=== PATIENT | male | born 1940 | race Caucasian/White ===

== ENCOUNTER 2016-09-24 16:13 | Inpatient (IN) | payer MEDICARE, MEDICAID ==
[2016-09-24] VITALS (9 sets, daily range): BP systolic 85–115; BP diastolic 44–59; PULSE 60–79; RESP 16–18; TEMP 97.8–98.5; O2SAT 96–98
[~2016-09-24] VITALS: Ht 180.3 cm; Wt 90.5 kg
[~2016-09-24 16:13] MED LIST: COUM4TAB PO; DIGO0.25 PO; FURO40TA PO; LIPI10TA PO; OMEP20TA PO; TAMS0.4C4 PO; VANC500I3 PO
--- NOTE | 2016-09-24 16:37 | PD ---
HPI Chief Complaint: GI Complaint Time Seen by Provider: 16:25 Travel History International Travel<30 days: No Contact w/Intl Traveler<30days: No Traveled to known affect area: No History of Present Illness HPI This is a 76-year-old male who has a history of C. difficile colitis who presents to the emergency department having had persistent diarrhea for months. He is brought in by family member who says he is not getting well taking care of at home. The patient is a poor historian and is somewhat tangential and inconsistently answers questions appropriately. He reportedly was started on Flagyl by his primary care physician earlier this week. He's been off of antibiotics for 2-3 weeks. He was hospitalized for C. difficile in July and discharged on oral vancomycin. His brother came down from [place] to help take care of him and evidently they were up all night because he's been having such frequent bowel movements. His family member reports that he's lost 70 pounds in 3 months. PFSH Past Medical History Hx Anticoagulant Therapy: Yes (POSSIBLY) Arthritis: No Asthma: Yes Atrial Fibrillation: Yes Autoimmune Disease: No Blood Disorders: No Anxiety: No Depression: No Heart Rhythm Problems: Yes Cancer: No Cardiac Catheterization: Yes Cardiovascular Problems: Yes (HTN) High Cholesterol: No Chemotherapy: No Chest Pain: Yes Congestive Heart Failure: Yes COPD: No Cerebrovascular Accident: No Coronary Artery Disease: Yes Diabetes: No Diminished Hearing: Yes Endocrine: No GERD: No Glaucoma: No Genitourinary: No Headaches: Yes Hepatitis: No Hiatal Hernia: No Hypertension: Yes Immune Disorder: Yes Kidney Stones: No Musculoskeletal: Yes (steroid injections with tens years ago) Neurologic: No Psychiatric: No Respiratory: No Immunizations Current: Yes Myocardial Infarction: No Radiation Therapy: No Renal Failure: No Sickle Cell Disease: No Sleep Apnea: No Thyroid Disease: No Ulcer: No Past Surgical History Abdominal Surgery: No AICD: No Cardiac Surgery: No Coronary Stent: Yes (x2) Ear Surgery: No Endocrine Surgery: No Eye Surgery: No Genitourinary Surgery: No Gynecologic Surgery: No Oral Surgery: No Pacemaker: No Thoracic Surgery: No Social History Alcohol Use: No Tobacco Use: No Substance Use: No Allergies-Medications (Allergen,Severity, Reaction): Coded Allergies: No Known Allergies (Verified , 09/24/16) Reported Meds & Prescriptions Reported Meds & Active Scripts Active Reported Digoxin 0.25 Mg Tab 0.25 Mg PO DAILY Atorvastatin (Atorvastatin Calcium) 10 Mg Tab 10 Mg PO HS Omeprazole 20 Mg Tab 20 Mg PO DAILY Warfarin 4 Mg Tab 4 Mg PO DAILY Probiotic (Lactobacillus Acidophilus) 1 Cap Cap 1 Cap PO TIDAC Tamsulosin (Tamsulosin HCl) 0.4 Mg Cap 0.4 Mg PO HS Pepto-Bismol Liq (Bismuth Subsalicylate) 262 Mg/15 Ml Susp 30 Ml PO PRN Do not exceed 8 doses (240 mL or 16 tbsp) in 24 hours. Flagyl (Metronidazole) 500 Mg Tab 500 Mg PO TID Multivitamin Men (Multiple Vitamins W/ Minerals) 1 Tab Tab 1 Tab PO DAILY Review of Systems ROS Limitations: Poor Historian Physical Exam Narrative GENERAL:Well appearing, no acute distress SKIN: Dry with skin tenting. HEAD: Atraumatic. Normocephalic. EYES: Pupils equal and round. No injection or drainage. ENT: Dry mucous membranes. NECK: Trachea midline. CARDIOVASCULAR: Regular rate and rhythm. No murmur appreciated. RESPIRATORY: Clear to auscultation. Breath sounds equal bilaterally. GASTROINTESTINAL: Abdomen soft, non-tender, nondistended. MUSCULOSKELETAL: No obvious deformities. NEUROLOGICAL: Somewhat confused, hard of hearing. Moving all extremities. Data Data Last Documented VS Vital Signs Date Time Temp Pulse Resp B/P Pulse Ox O2 Delivery O2 Flow Rate FiO2 09/24/16 17:45 76 18 100/54 96 Room Air 09/24/16 16:16 98.5 Orders Complete Blood Count With Diff (09/24/16 16:35) Comprehensive Metabolic Panel (09/24/16 16:35) ^ Insert Iv (09/24/16 16:35) Sodium Chlor 0.9% 1000 Ml Inj (Ns 1000 M (09/24/16 16:45) Prothrombin Time / Inr (Pt) (09/24/16 16:35) Digoxin (09/24/16 16:35) Admit Order (Ed Use Only) (09/24/16 18:28) Labs Laboratory Tests Test 09/24/16 17:30 White Blood Count 5.9 TH/MM3 Red Blood Count 4.06 MIL/MM3 Hemoglobin 11.8 GM/DL Hematocrit 34.9 % Mean Corpuscular Volume 85.9 FL Mean Corpuscular Hemoglobin 28.9 PG Mean Corpuscular Hemoglobin 33.7 % Concent Red Cell Distribution Width 15.9 % Platelet Count 277 TH/MM3 Mean Platelet Volume 8.2 FL Neutrophils (%) (Auto) 65.0 % Lymphocytes (%) (Auto) 17.4 % Monocytes (%) (Auto) 15.8 % Eosinophils (%) (Auto) 0.6 % Basophils (%) (Auto) 1.2 % Neutrophils # (Auto) 3.9 TH/MM3 Lymphocytes # (Auto) 1.0 TH/MM3 Monocytes # (Auto) 0.9 TH/MM3 Eosinophils # (Auto) 0.0 TH/MM3 Basophils # (Auto) 0.1 TH/MM3 CBC Comment DIFF FINAL Differential Comment Prothrombin Time 25.0 SEC Prothromb Time International 2.2 RATIO Ratio Sodium Level 133 MEQ/L Potassium Level 3.8 MEQ/L Chloride Level 96 MEQ/L Carbon Dioxide Level 22.7 MEQ/L Anion Gap 14 MEQ/L Blood Urea Nitrogen 76 MG/DL Creatinine 4.70 MG/DL Estimat Glomerular Filtration 12 ML/MIN Rate Random Glucose 94 MG/DL Calcium Level 8.1 MG/DL Total Bilirubin 0.6 MG/DL Aspartate Amino Transf 18 U/L (AST/SGOT) Alanine Aminotransferase 17 U/L (ALT/SGPT) Alkaline Phosphatase 71 U/L Total Protein 6.1 GM/DL Albumin 2.0 GM/DL Digoxin Level 3.3 NG/ML MDM Medical Decision Making Medical Screen Exam Complete: Yes Emergency Medical Condition: Yes Medical Record Reviewed: Yes (patient was hospitalized in July for C. difficile colitis and renal failure. On discharge his creatinine is 1.2.) Interpretation(s) EKG: Right bundle branch block, atrial fibrillation similar to prior EKG Anemia Monocytic shift Mild hyponatremia Creatinine is 4.7 BUN is 76 Digoxin is 3.3 Differential Diagnosis Electrolyte abnormality, dehydration, renal failure, sepsis, digoxin toxicity Narrative Course This is a 76-year-old male who presents the emergency department with failure to thrive in the setting of C. difficile colitis. He is nontoxic appearing on exam but does appear quite dry. He was placed on a monitor and an IV was established. Labs demonstrate renal failure with a normal potassium. His digoxin level is also toxic. Given this is not an acute ingestion and likely reflects toxicity in the setting of renal failure. I don't think digiFab or dialysis are warranted at this time, the patient's level likely improve with hydration. He has no evidence of arrhythmia on monitor currently. I spoke to Dr. Vasquez who requested I speak to the commercial designer regarding this patient. I spoke to Dr. Phelan who will admit the patient to the intensive care unit. Diagnosis Primary Impression: Renal insufficiency Additional Impression: Digoxin toxicity Qualified Code: T46.0X1A - Digoxin toxicity, accidental or unintentional, initial encounter Admitting Information Admitting Physician Requests: Admit Brianna Kimble MD Sep 24, 2016 16:37
[2016-09-24] MEDS ORDERED: SODIUM CHLOR 0.9% 1000 ML INJ 1,000 ML IV ONE ×2 (16:45→19:30)
[2016-09-24] MEDS ORDERED: WARF-20 PO (16:48)
[2016-09-24] MEDS ORDERED: MULT1TAB85 PO (16:48)
[2016-09-24] MEDS ORDERED: LACTCAP8 PO (16:48)
[2016-09-24] MEDS ORDERED: ATOR10TA15 PO (16:48)
[2016-09-24] MEDS ORDERED: TAMS0.4C4 PO (16:48)
[2016-09-24] MEDS ORDERED: OMEP20TA PO (16:48)
[2016-09-24] MEDS ORDERED: PEPT262S PO (16:48)
[2016-09-24] MEDS ORDERED: DIGO0.25 PO (16:48)
[2016-09-24] MEDS ORDERED: METR-1 PO (16:48)
[2016-09-24 17:44] LABS: AUTOMATED NEUTROPHIL # 3.9 TH/MM3 (1.8-7.7); BASOPHIL # 0.1 TH/MM3 (0-0.2); BASOPHIL % 1.2 % (0.0-2.0); EOSINOPHIL % 0.6 % (0.0-4.0); HEMATOCRIT 34.9 % (39.0-51.0); HEMO FLAGS DIFF FINAL; LYMPH % 17.4 % (9.0-44.0); MEAN CELL VOLUME 85.9 FL (80.0-100.0); MEAN CORPUSCULAR HEMOGLOBIN 28.9 PG (27.0-34.0); MEAN CORPUSCULAR HGB CONC 33.7 % (32.0-36.0); MONO % 15.8 % (0.0-8.0); PLATELET COUNT 277 TH/MM3 (150-450); RED BLOOD COUNT 4.06 MIL/MM3 (4.50-5.90); RED CELL DISTRIBUTION WIDTH 15.9 % (11.6-17.2); WHITE BLOOD COUNT 5.9 TH/MM3 (4.0-11.0)
[2016-09-24 17:52] LABS: CHLORIDE 96 MEQ/L (98-107); POTASSIUM 3.8 MEQ/L (3.5-5.1); SODIUM (NA) 133 MEQ/L (136-145)
[2016-09-24 17:55] LABS: ANION GAP 14 MEQ/L (5-15); BICARBONATE 22.7 MEQ/L (21.0-32.0)
[2016-09-24 17:56] LABS: BLOOD UREA NITROGEN 76 MG/DL (7-18)
[2016-09-24 17:57] LABS: INTERNATIONAL NORMALIZED RATIO 2.2 RATIO
[2016-09-24 17:59] LABS: ALT (GPT) 17 U/L (12-78); AST (GOT) 18 U/L (15-37); GLOMERULAR FILTRATION RATE 12 ML/MIN (>89)
[2016-09-24 18:00] LABS: TOTAL BILIRUBIN ADULT 0.6 MG/DL (0.2-1.0)
[2016-09-24 18:02] LABS: ALKALINE PHOSPHATASE 71 U/L (45-117)
[2016-09-24] MEDS ORDERED: VANCOMYCIN 500 MG VIAL (FOR ORAL USE ONLY) PO SCH (18:45)
[2016-09-24 18:50] LABS: DIGOXIN 3.3 NG/ML (0.8-2.0)
[2016-09-24] MEDS ORDERED: ONDANSETRON HCL 4 MG/2 ML VIAL IVP PRN (19:00)
[2016-09-24] MEDS ORDERED: ACETAMINOPHEN 325 MG TAB PO PRN ×2 (19:00→19:30)
[2016-09-24] MEDS ORDERED: NALOXONE HCL 0.4 MG/ML AMP IV PRN (19:00)
[2016-09-24] MEDS ORDERED: SODIUM CHLORIDE 0.9% FLUSH 5 ML FLUSH FLUSH PRN (19:00)
[2016-09-24] MEDS ORDERED: RESP: ALBUTEROL 2.5 MG/IPRATROPIUM 0.5 MG NEB (PRN) INH (19:30)
[2016-09-24] MEDS ORDERED: CHLORHEXIDINE GLUCONATE 2 % 1 PACK (2 CLOTHS) TOP PRN (19:30)
[2016-09-24] MEDS ORDERED: MISCELLANEOUS NURSING INFORMATION XX SCH (19:30)
[2016-09-24] MEDS ORDERED: ONDANSETRON HCL 4 MG/2 ML VIAL IV PRN (19:30)
[2016-09-24] MEDS ORDERED: SODIUM CHLORIDE 0.9% FLUSH 5 ML FLUSH IV FLUSH PRN (19:30)
[2016-09-24] MEDS: TAMSULOSIN HCL 0.4 MG CAP PO SCH (19:45)
[2016-09-24] MEDS ORDERED: SODIUM CHLOR 0.9% 1000 ML INJ 1,000 ML IV SCH (20:00)
[2016-09-24] MEDS ORDERED: HEPARIN SODIUM - SQ 10,000 UNITS/ML VIAL SQ SCH (20:00)
[2016-09-24] MEDS: SODIUM CHLORIDE 0.9% FLUSH 5 ML FLUSH IV FLUSH SCH (20:56)
[2016-09-24] MEDS: SODIUM CHLOR 0.9% 1000 ML INJ 1,000 ML IV SCH (20:56)
[2016-09-24] MEDS: ATORVASTATIN 10 MG TAB PO SCH (20:56)
[2016-09-24] MEDS ORDERED: SODIUM CHLORIDE 0.9% FLUSH 5 ML FLUSH FLUSH SCH (21:00)
[2016-09-25] VITALS (14 sets, daily range): BP systolic 91–104; BP diastolic 51–55; PULSE 45–80; RESP 15–19; TEMP 97.3–97.8; O2SAT 95–98
--- NOTE | 2016-09-25 00:23 | HHI.HP ---
HPI Service Critical Care Medicine Primary Care Physician Pelon Jiang M.D. Admission Diagnosis renal failure, c diff colitis Diagnosis: Chief Complaint: Diarrhea, weakness. Travel History International Travel<30 Days: No Contact w/Intl Traveler <30 Da: No Traveled to Known Affected Are: No History of Present Illness 76 y/o man developed C. diff colitis after an antibiotic course for a minor elbow infection. Now after Rx he appears to have recurrence. He presents with RAVEN, Creat 4.0, and severe dehydration. Complains that his tongue is stuck to the top of his mouth. Hypotensive on arrival. See initially at [place] ED and transferred when bed not available there. No chest pain or SOB. Review of Systems ROS Skin breakdown left buttocks is sore. Continued diarrhea. Past Family Social History Allergies: Coded Allergies: No Known Allergies (Verified , 09/24/16) Past Medical History Past Medical History Hx Anticoagulant Therapy: Yes (POSSIBLY) Arthritis: No Asthma: Yes Atrial Fibrillation: Yes Autoimmune Disease: No Blood Disorders: No Anxiety: No Depression: No Heart Rhythm Problems: Yes Cancer: No Cardiac Catheterization: Yes Cardiovascular Problems: Yes (HTN) High Cholesterol: No Chemotherapy: No Chest Pain: Yes Congestive Heart Failure: Yes COPD: No Cerebrovascular Accident: No Coronary Artery Disease: Yes Diabetes: No Diminished Hearing: Yes Endocrine: No GERD: No Glaucoma: No Genitourinary: No Headaches: Yes Hepatitis: No Hiatal Hernia: No Hypertension: Yes Immune Disorder: Yes Kidney Stones: No Musculoskeletal: Yes (steroid injections with tens years ago) Neurologic: No Psychiatric: No Respiratory: No Immunizations Current: Yes Myocardial Infarction: No Radiation Therapy: No Renal Failure: No Sickle Cell Disease: No Sleep Apnea: No Thyroid Disease: No Ulcer: No Past Surgical History Abdominal Surgery: No AICD: No Cardiac Surgery: No Coronary Stent: Yes (x2) Ear Surgery: No Endocrine Surgery: No Eye Surgery: No Genitourinary Surgery: No Gynecologic Surgery: No Oral Surgery: No Pacemaker: No Thoracic Surgery: No Social History Alcohol Use: No Tobacco Use: No Substance Use: No Allergies-Medications Allergies-Medications (Allergen,Severity, Reaction): Coded Allergies: No Known Allergies (Verified , 09/24/16) Reported Meds & Prescriptions Reported Meds & Active Scripts Active Reported Digoxin 0.25 Mg Tab 0.25 Mg PO DAILY Atorvastatin (Atorvastatin Calcium) 10 Mg Tab 10 Mg PO HS Omeprazole 20 Mg Tab 20 Mg PO DAILY Warfarin 4 Mg Tab 4 Mg PO DAILY Probiotic (Lactobacillus Acidophilus) 1 Cap Cap 1 Cap PO TIDAC Tamsulosin (Tamsulosin HCl) 0.4 Mg Cap 0.4 Mg PO HS Pepto-Bismol Liq (Bismuth Subsalicylate) 262 Mg/15 Ml Susp 30 Ml PO PRN Do not exceed 8 doses (240 mL or 16 tbsp) in 24 hours. Flagyl (Metronidazole) 500 Mg Tab 500 Mg PO TID Multivitamin Men (Multiple Vitamins W/ Minerals) 1 Tab Tab 1 Tab PO DAILY Physical Exam Vital Signs Vital Signs Date Time Temp Pulse Resp B/P Pulse Ox O2 Delivery O2 Flow Rate FiO2 09/24/16 23:26 97.8 72 16 104/53 09/24/16 22:50 59 18 85/48 98 09/24/16 21:55 63 18 98/46 97 Room Air 09/24/16 21:55 18 09/24/16 20:26 60 18 102/44 98 Room Air 09/24/16 20:16 98 09/24/16 19:09 69 18 115/51 98 Room Air 09/24/16 19:09 18 09/24/16 18:41 73 18 101/53 96 Room Air 09/24/16 17:45 76 18 100/54 96 Room Air 09/24/16 16:16 98.5 79 16 97/59 Physical Exam Gen: Ill-appearing, dehydrated man Head: Eyes sunken. Neck: Supple, no obstruction. Lungs: Clear, no wheezes or crackles. Comfortable pattern. Heart: Irreg Irreg, rate 75-88. No JVD. Abdomen: Soft, nontender. No guarding. BS active. Extremities: Tepid, well perfused. 2 + chronic edema both lower legs and feet. Neuro: O X 3, speech clear. Moves 4 limbs to command. Laboratory Laboratory Tests Test 09/24/16 17:30 White Blood Count 5.9 Red Blood Count 4.06 Hemoglobin 11.8 Hematocrit 34.9 Mean Corpuscular Volume 85.9 Mean Corpuscular Hemoglobin 28.9 Mean Corpuscular Hemoglobin 33.7 Concent Red Cell Distribution Width 15.9 Platelet Count 277 Mean Platelet Volume 8.2 Neutrophils (%) (Auto) 65.0 Lymphocytes (%) (Auto) 17.4 Monocytes (%) (Auto) 15.8 Eosinophils (%) (Auto) 0.6 Basophils (%) (Auto) 1.2 Neutrophils # (Auto) 3.9 Lymphocytes # (Auto) 1.0 Monocytes # (Auto) 0.9 Eosinophils # (Auto) 0.0 Basophils # (Auto) 0.1 CBC Comment DIFF FINAL Differential Comment Prothrombin Time 25.0 Prothromb Time International 2.2 Ratio Sodium Level 133 Potassium Level 3.8 Chloride Level 96 Carbon Dioxide Level 22.7 Anion Gap 14 Blood Urea Nitrogen 76 Creatinine 4.70 Estimat Glomerular Filtration 12 Rate Random Glucose 94 Calcium Level 8.1 Total Bilirubin 0.6 Aspartate Amino Transf 18 (AST/SGOT) Alanine Aminotransferase 17 (ALT/SGPT) Alkaline Phosphatase 71 Total Protein 6.1 Albumin 2.0 Digoxin Level 3.3 Result Diagram: 09/24/16172909/24/161729 Assessment and Plan Problem List: (1) Dehydration, severe ICD Code: E86.0 Status: Acute (2) RAVEN (acute kidney injury) ICD Code: N17.9 Status: Acute (3) Digoxin toxicity ICD Code: T46.0X1A Status: Acute (4) Pressure sore on buttocks ICD Code: L89.309 Status: Acute Assessment and Plan Plan: CV: Hold digoxin. Rate acceptable. NS one additional liter. RESP: Suppl O2 prn to keep Sats > 90% NEURO: Avoid sedation. RENAL: Hydrate aggressively. Follow Creatinine. : Hold burgos for now. GI: Sips only tonight. ID: Oral vancomycin. IV flagyl. Blood cultures. C. diff pcr now. Wound consult for buttock breakdown present on admission. HEME: Serial wbc. Continue coumadin for a-fib. ENDO NA Nutrition: Consult, appears to have protein calorie malnutrition. Prealbumin. Overall impression: Critically ill with recurrent C. diff colitis and severe dehydration associated with acute kidney in jury. He will require aggressive resuscitation tonight. Critical care 38 mins Problem Qualifiers (1) Digoxin toxicity: Qualified Code: T46.0X1A - Digoxin toxicity, accidental or unintentional, initial encounter Contreras Phelan MD Sep 25, 2016 00:22
[2016-09-25] MEDS ORDERED: SODIUM CHLOR 0.9% 1000 ML INJ 1,000 ML IV ONE (00:30)
[2016-09-25] MEDS: metroNIDAZOLE 500 MG INJ 100 ML IV SCH ×2 (01:41→16:28)
[2016-09-25] MEDS: CHLORHEXIDINE GLUCONATE 2 % 1 PACK (2 CLOTHS) TOP SCH (01:42)
[2016-09-25] MEDS: SODIUM CHLOR 0.9% 1000 ML INJ 1,000 ML IV SCH ×3 (01:43→16:29)
[2016-09-25 04:51] LABS: AUTOMATED NEUTROPHIL # 3.2 TH/MM3 (1.8-7.7); BASOPHIL % 0.3 % (0.0-2.0); EOSINOPHIL % 0.7 % (0.0-4.0); HEMATOCRIT 31.6 % (39.0-51.0); HEMO FLAGS DIFF FINAL; MEAN CORPUSCULAR HGB CONC 33.3 % (32.0-36.0); PLATELET COUNT 234 TH/MM3 (150-450); RED BLOOD COUNT 3.64 MIL/MM3 (4.50-5.90); RED CELL DISTRIBUTION WIDTH 16.8 % (11.6-17.2); WHITE BLOOD COUNT 4.8 TH/MM3 (4.0-11.0)
[2016-09-25 04:53] LABS: INTERNATIONAL NORMALIZED RATIO 2.2 RATIO; PROTHROMBIN TIME - PATIENT 24.9 SEC (9.8-11.6)
[2016-09-25 05:09] LABS: ANION GAP 12 MEQ/L (5-15); AST (GOT) 16 U/L (15-37); BICARBONATE 22.5 MEQ/L (21.0-32.0); BLOOD UREA NITROGEN 70 MG/DL (7-18); CHLORIDE 102 MEQ/L (98-107); GLOMERULAR FILTRATION RATE 15 ML/MIN (>89); MAGNESIUM 2.1 MG/DL (1.5-2.5); POTASSIUM 3.6 MEQ/L (3.5-5.1); SODIUM (NA) 136 MEQ/L (136-145)
[2016-09-25 05:14] LABS: ALKALINE PHOSPHATASE 64 U/L (45-117); ALT (GPT) 18 U/L (12-78); TOTAL BILIRUBIN ADULT 0.4 MG/DL (0.2-1.0)
[2016-09-25 06:03] LABS: C. DIFF EPI 027 PRESUMPTIVE NEGATIVE (NEGATIVE); C. DIFF TOXIN PCR NEGATIVE (NEGATIVE)
[2016-09-25] MEDS ORDERED: metroNIDAZOLE 500 MG TAB PO SCH (09:00)
[2016-09-25] MEDS: SODIUM CHLORIDE 0.9% FLUSH 5 ML FLUSH IV FLUSH SCH ×2 (09:00→20:22)
--- NOTE | 2016-09-25 09:39 | RADRPT ---
EXAM DATE/TIME: 09/25/2016 08:48 [facility] COMPARISON: ULTRASOUND SOFT TISSUE, June 29, 2016, 17:20. INDICATIONS : Shortness of breath. MEDICAL HISTORY : Hypertension. Congestive heart failure. Gastroesophageal reflux disease. Asthma. SURGICAL HISTORY : Stent placement. ENCOUNTER: Initial ACUITY: 1 day PAIN SCORE: 0/10 LOCATION: Bilateral chest FINDINGS: The left hemithorax is decreased in volume as compared to the right there is blunting of the left cos tophrenic angle overlying hazy increased density. These findings are suggestive of consolidation, ate lectasis and/or fluid. The remainder of the lungs are clear. Heart size is normal. Pulmonary vasculature is normal. Osseous structures are unremarkable. CONCLUSION: Left basilar density and blunting of the left costophrenic angle concerning for pleural effusion, con solidation and/or atelectasis. Madelin Echeverria MD on September 25, 2016 at 9:36 Board Certified Radiologist. This report was verified electronically.
[2016-09-25] MEDS: PANTOPRAZOLE SOD 20 MG DELAYED RELEASE TAB PO SCH (10:44)
--- NOTE | 2016-09-25 11:39 | PD.CONS ---
HPI Service Nephrology Consult Requested By Reason for Consult Acute Renal Failure Primary Care Physician Pelon Jiang M.D. History of Present Illness This is a 76 y/o male patient who was sent from [facility]. He was previously on antibiotic for left arm wound, developed diarrhea, was treated for C diff. His family brought him in for weakness. The diarrhea has improved. C diff testing here is negative Creatinine was normal in July at 1.2, on admission is was 4.7, which improved to 4.0 with IVF. He has been complaining of very dry mouth. PMH as listed below including A fib, he is on Digoxin and Coumadin. We were consulted for renal management. His lower legs are edematous. (Monika Martinez) Review of Systems Constitutional: COMPLAINS OF: Weight gain, DENIES: Fatigue Respiratory: DENIES: Shortness of breath Cardiovascular: COMPLAINS OF: Lower Extremity Edema Gastrointestinal: COMPLAINS OF: Diarrhea, Vomiting, DENIES: Abdominal pain, Constipation, Nausea (Monika Martinez) Past Family Social History Allergies: Coded Allergies: No Known Allergies (Verified , 09/24/16) Past Medical History A fib on Coumadin CHF HTN CAD Asthma Past Surgical History PCI with stent placement Reported Medications Digoxin 0.25 Mg Tab 0.25 Mg PO DAILY Atorvastatin (Atorvastatin Calcium) 10 Mg Tab 10 Mg PO HS Omeprazole 20 Mg Tab 20 Mg PO DAILY Warfarin 4 Mg Tab 4 Mg PO DAILY Probiotic (Lactobacillus Acidophilus) 1 Cap Cap 1 Cap PO TIDAC Tamsulosin (Tamsulosin HCl) 0.4 Mg Cap 0.4 Mg PO HS Pepto-Bismol Liq (Bismuth Subsalicylate) 262 Mg/15 Ml Susp 30 Ml PO PRN Do not exceed 8 doses (240 mL or 16 tbsp) in 24 hours. Flagyl (Metronidazole) 500 Mg Tab 500 Mg PO TID Multivitamin Men (Multiple Vitamins W/ Minerals) 1 Tab Tab 1 Tab PO DAILY Active Ordered Medications Last 72 hours Impressions Chest X-Ray 09/25/16 0000 Signed Impressions: Service Date/Time: September 08:48 - CONCLUSION: Left basilar density and blunting of the left costophrenic angle concerning for pleural effusion, consolidation and/or atelectasis. 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 (Monika Martinez) Physical Exam Vital Signs Vital Signs Date Time Temp Pulse Resp B/P Pulse Ox O2 Delivery O2 Flow Rate FiO2 09/25/16 10:00 63 09/25/16 08:50 95 Nasal Cannula 1.50 09/25/16 08:00 97.5 52 16 93/51 97 09/25/16 08:00 52 09/25/16 06:00 59 09/25/16 04:00 64 09/25/16 04:00 97.3 64 19 104/55 96 09/25/16 02:00 61 09/25/16 00:00 97.8 69 18 92/55 96 09/25/16 00:00 69 09/24/16 23:26 97.8 72 16 104/53 09/24/16 22:50 59 18 85/48 98 09/24/16 21:55 63 18 98/46 97 Room Air 09/24/16 21:55 18 09/24/16 20:26 60 18 102/44 98 Room Air 09/24/16 20:16 98 09/24/16 19:09 69 18 115/51 98 Room Air 09/24/16 19:09 18 09/24/16 18:41 73 18 101/53 96 Room Air 09/24/16 17:45 76 18 100/54 96 Room Air 09/24/16 16:16 98.5 79 16 97/59 Physical Exam Elderly male, awake/alert very poor dentition, broken rotten teeth S1/S2, irreg irreg, milton at times Lungs: clear in all honeycutt Abd: soft, non tender Ext: bilateral lower extremity edema, distal pulses intact skin: left arm wound, healed Laboratory Laboratory Tests Test 09/24/16 09/24/16 09/25/16 09/25/16 17:30 23:30 04:15 04:30 White Blood Count 5.9 4.8 Red Blood Count 4.06 3.64 Hemoglobin 11.8 10.5 Hematocrit 34.9 31.6 Mean Corpuscular Volume 85.9 87.0 Mean Corpuscular Hemoglobin 28.9 29.0 Mean Corpuscular Hemoglobin 33.7 33.3 Concent Red Cell Distribution Width 15.9 16.8 Platelet Count 277 234 Mean Platelet Volume 8.2 8.2 Neutrophils (%) (Auto) 65.0 66.0 Lymphocytes (%) (Auto) 17.4 20.0 Monocytes (%) (Auto) 15.8 13.0 Eosinophils (%) (Auto) 0.6 0.7 Basophils (%) (Auto) 1.2 0.3 Neutrophils # (Auto) 3.9 3.2 Lymphocytes # (Auto) 1.0 1.0 Monocytes # (Auto) 0.9 0.6 Eosinophils # (Auto) 0.0 0.0 Basophils # (Auto) 0.1 0.0 CBC Comment DIFF FINAL DIFF FINAL Differential Comment Prothrombin Time 25.0 24.9 Prothromb Time International 2.2 2.2 Ratio Sodium Level 133 136 Potassium Level 3.8 3.6 Chloride Level 96 102 Carbon Dioxide Level 22.7 22.5 Anion Gap 14 12 Blood Urea Nitrogen 76 70 Creatinine 4.70 4.02 Estimat Glomerular Filtration 12 15 Rate Random Glucose 94 87 Calcium Level 8.1 7.6 Total Bilirubin 0.6 0.4 Aspartate Amino Transf 18 16 (AST/SGOT) Alanine Aminotransferase 17 18 (ALT/SGPT) Alkaline Phosphatase 71 64 Total Protein 6.1 5.2 Albumin 2.0 1.8 Digoxin Level 3.3 4.0 Nasal Screen MRSA (PCR) NEGATIVE Stool C. difficile Toxin (PCR) NEGATIVE Stl C. difficile Toxin PRESUMPTIVE Epiderm 027 NEGATIVE Lactic Acid Level 0.7 Phosphorus Level 2.9 Magnesium Level 2.1 (Monika Martinez) Result Diagram: 09/25/16 0430 09/25/16 0430 Imaging Last 72 hours Impressions Chest X-Ray 09/25/16 0000 Signed Impressions: Service Date/Time: September 08:48 - CONCLUSION: Left basilar density and blunting of the left costophrenic angle concerning for pleural effusion, consolidation and/or atelectasis. Madelin Echeverria MD (Monika Martinez) Assessment and Plan Problem List: (1) RAVEN (acute kidney injury) Plan: In a pt with normal renal function at baseline renal function is improving with IVF, RAVEN thought to be due to prerenal etiology , dehydration from profuse diarrhea after antibiotic administration K is acceptable he does demonstrate lower extremity edema, will order lower extremity duplex to rule out DVTs daily renal panel UA pending monitor urine output, has burgos, non oliguric oral intake encouraged (2) Digoxin toxicity Plan: monitor heart rate (Monika Martinez) Assessment and Plan patient was seen and examined. RAVEN likely due to pre-renal azotemia, but may have progressed to ATN. He had digoxin toxicity, likely due to development of RAVEN. Continue IVF, reduce the rate. Supportive care. Avoid nephrotoxic agents. ( Ruben Callahan MD) Problem Qualifiers (1) Digoxin toxicity: Qualified Code: T46.0X1A - Digoxin toxicity, accidental or unintentional, initial encounter Monika Martinez Sep 25, 2016 11:39 Ruben Callahan MD Sep 25, 2016 20:24
[2016-09-25 11:44] LABS: BACTERIA, URINE FEW /hpf; BLOOD, URINE NEG (NEG); COMMENT (UR) CATH-CULTURE IND; CULTURE IF INDICATED CATH CULTURE IND; GLUCOSE,URINE NEG (NEG); KETONE, URINE 10 mg/dL (NEG); NITRITE,URINE NEG (NEG); URINE COLOR YELLOW (YELLW/STRAW)
--- NOTE | 2016-09-25 12:10 | EKG ---
Date Performed: 09/24/2016 Time Performed: 18:55:58 PTAGE: 76 years EKG: Atrial fibrillation with controlled ventricular rate Rightward axis Right bundle branch blo ck with secondary ST-T wave changes Probably no major change compared to the prior tracing. Abnormal ECG PREVIOUS TRACING : 06/29/2016 17.12 DOCTOR: Douglas Beltre Interpretating Date/Time 09/25/2016 12:09:32
[2016-09-25] MEDS: WARFARIN SOD 4 MG TAB PO SCH (16:28)
--- NOTE | 2016-09-25 19:38 | EKG ---
Date Performed: 09/25/2016 Time Performed: 09:14:58 PTAGE: 76 years EKG: Probable atrial fibrillation with slow ventricular response Rightward axis Right bundle bra nch block Inferior/lateral ST-T changes are nonspecific Low QRS voltages in limb leads Compared to pr ior tracing no significant change Abnormal ECG NO PREVIOUS TRACING DOCTOR: Douglas Beltre Interpretating Date/Time 09/25/2016 19:36:04
[2016-09-25] MEDS: ATORVASTATIN 10 MG TAB PO SCH (20:26)
[2016-09-25] MEDS: TAMSULOSIN HCL 0.4 MG CAP PO SCH (20:26)
--- NOTE | 2016-09-25 20:36 | RADRPT ---
EXAM DATE/TIME: 09/25/2016 18:06 [facility] COMPARISON: No previous studies available for comparison. INDICATIONS : Bilateral leg swelling. MEDICAL HISTORY : Hypertension. Gastroesophageal reflux disease. Congestive heart failure. Coron festus artery disease. Atrial fibrillation. Dyspnea. Renal failure. Clostridium difficile, 07/23/16. SURGICAL HISTORY : Cardiac catheterization. Coronary stent. ENCOUNTER: Initial ACUITY: 1 day PAIN SCORE: 0/10 LOCATION: Bilateral legs. TECHNIQUE: Venous ultrasound of the left and right leg was performed from the inguinal ligament t o the proximal calf. Real-time, color Doppler and spectral tracing, compression and augmentation pati hniques were used. FINDINGS: RIGHT LEG: There is normal compressibility of the deep venous system from the inguinal region to the proximal calf. No echogenic clot is seen in the lumen of the common femoral, femoral, popliteal, and posterior tibial veins. There is a normal response of the venous system to proximal and distal augmentation and respiration. LEFT LEG: There is normal compressibility of the deep venous system from the inguinal region to t he proximal calf. No echogenic clot is seen in the lumen of the common femoral, femoral, popliteal, and posterior tibial veins. There is a normal response of the venous system to proximal and distal a ugmentation and respiration. CONCLUSION: Negative for deep venous thrombosis. Gideon Gifford MD FACR on September 25, 2016 at 20:34 Board Certified Radiologist. This report was verified electronically.
--- NOTE | 2016-09-25 20:37 | RADRPT ---
EXAM DATE/TIME: 09/25/2016 18:24 [facility] COMPARISON: No previous studies available for comparison. INDICATIONS : Increased BUN/Creatinine. MEDICAL HISTORY : Hypertension. Gastroesophageal reflux disease. Congestive heart failure. Coronary artery disease. A trial fibrillation. Dyspnea. Renal failure. Clostridium difficile, 07/23/16. SURGICAL HISTORY : Cardiac catheterization. Coronary stent. ENCOUNTER: Initial ACUITY: 1 day PAIN SCORE: 0/10 LOCATION: Bilateral flank MEASUREMENTS: RIGHT KIDNEY: 8.7 x 5.2 x 5.6 cm LEFT KIDNEY: 10.7 x 5.4 x 5.5 cm FINDINGS: RIGHT KIDNEY: Renal cortex is normal in thickness and echotexture. No hydronephrosis, stone, or mass. LEFT KIDNEY: 4.5 cm cyst is evident with several smaller cysts noted. BLADDER: Within normal limits given the degree of distension. CONCLUSION: There is no hydronephrosis. Right kidney is small and echogenic. Large cyst in left kidney. Gideon Gifford MD FACR on September 25, 2016 at 20:35 Board Certified Radiologist. This report was verified electronically.
[2016-09-26] VITALS (14 sets, daily range): BP systolic 98–106; BP diastolic 49–56; PULSE 54–94; RESP 15–21; TEMP 97.5–98.6; O2SAT 97–100
[2016-09-26] MEDS: metroNIDAZOLE 500 MG INJ 100 ML IV SCH ×3 (00:18→22:33)
[2016-09-26] MEDS: CHLORHEXIDINE GLUCONATE 2 % 1 PACK (2 CLOTHS) TOP SCH (04:00)
[2016-09-26] MEDS: SODIUM CHLOR 0.9% 1000 ML INJ 1,000 ML IV SCH ×2 (05:26→15:23)
[2016-09-26 06:11] LABS: AUTOMATED NEUTROPHIL # 4.2 TH/MM3 (1.8-7.7); BASOPHIL % 0.3 % (0.0-2.0); EOSINOPHIL % 0.3 % (0.0-4.0); HEMATOCRIT 32.7 % (39.0-51.0); HEMO FLAGS DIFF FINAL; LYMPH % 14.8 % (9.0-44.0); LYMPHOCYTE # 0.9 TH/MM3 (1.0-4.8); MEAN CELL VOLUME 87.6 FL (80.0-100.0); MEAN CORPUSCULAR HEMOGLOBIN 28.6 PG (27.0-34.0); MEAN CORPUSCULAR HGB CONC 32.7 % (32.0-36.0); MONO % 13.2 % (0.0-8.0); NEUT % 71.4 % (16.0-70.0); PLATELET COUNT 259 TH/MM3 (150-450); RED BLOOD COUNT 3.73 MIL/MM3 (4.50-5.90); RED CELL DISTRIBUTION WIDTH 17.1 % (11.6-17.2); WHITE BLOOD COUNT 5.8 TH/MM3 (4.0-11.0)
[2016-09-26 06:14] LABS: INTERNATIONAL NORMALIZED RATIO 2.5 RATIO; PROTHROMBIN TIME - PATIENT 28.8 SEC (9.8-11.6)
[2016-09-26 06:36] LABS: ALT (GPT) 17 U/L (12-78); ANION GAP 12 MEQ/L (5-15); AST (GOT) 16 U/L (15-37); BICARBONATE 21.2 MEQ/L (21.0-32.0); BLOOD UREA NITROGEN 60 MG/DL (7-18); CHLORIDE 106 MEQ/L (98-107); GLOMERULAR FILTRATION RATE 18 ML/MIN (>89); POTASSIUM 3.6 MEQ/L (3.5-5.1); SODIUM (NA) 139 MEQ/L (136-145)
[2016-09-26 07:04] LABS: ALKALINE PHOSPHATASE 70 U/L (45-117); TOTAL BILIRUBIN ADULT 0.4 MG/DL (0.2-1.0)
[2016-09-26 07:09] LABS: DIGOXIN 3.8 NG/ML (0.8-2.0)
--- NOTE | 2016-09-26 08:23 | HHI.CCPN ---
Subjective Remarks/Hospital Course 76 y/o man developed C. diff colitis after an antibiotic course for a minor elbow infection. Now after Rx he appears to have recurrence. He presents with RAVEN, Creat 4.0, and severe dehydration. Complains that his tongue is stuck to the top of his mouth. Hypotensive on arrival. See initially at [place] ED and transferred when bed not available there. No chest pain or SOB. 09/26 No acute events overnight. Awake and alert lying in be din NAD. Afebrile. Renal function improving with Cr: 3.41 from 4.0 with UO: Objective Vital Signs Date Time Temp Pulse Resp B/P Pulse Ox O2 Delivery O2 Flow Rate FiO2 09/26/16 06:00 54 09/26/16 04:00 97.6 15 103/56 97 09/25/16 21:34 Nasal Cannula 2.00 Intake and Output 09/25/16 09/25/16 09/26/16 08:00 16:00 00:00 Intake Total 1426 ml 1363 ml 569 ml Output Total 121 ml 350 ml 150 ml Balance 1305 ml 1013 ml 419 ml Result Diagram: 09/26/16 0504 09/26/16 0504 Other Results Laboratory Tests Test 09/25/16 09/25/16 09/26/16 08:20 15:52 05:04 Urine Color YELLOW Urine Turbidity HAZY Urine pH 5.0 Urine Specific [place] 1.016 Urine Protein TRACE mg/dL Urine Glucose (UA) NEG mg/dL Urine Ketones 10 mg/dL Urine Occult Blood NEG Urine Nitrite NEG Urine Bilirubin NEG Urine Urobilinogen LESS THAN 2.0 MG/DL Urine Leukocyte Esterase TRACE Urine RBC 7 /hpf Urine Amorphous Sediment RARE Urine Bacteria FEW /hpf Microscopic Urinalysis Comment CATH-CULTURE IND Digoxin Level 3.8 NG/ML 3.8 NG/ML White Blood Count 5.8 TH/MM3 Red Blood Count 3.73 MIL/MM3 Hemoglobin 10.7 GM/DL Hematocrit 32.7 % Mean Corpuscular Volume 87.6 FL Mean Corpuscular Hemoglobin 28.6 PG Mean Corpuscular Hemoglobin 32.7 % Concent Red Cell Distribution Width 17.1 % Platelet Count 259 TH/MM3 Mean Platelet Volume 8.6 FL Neutrophils (%) (Auto) 71.4 % Lymphocytes (%) (Auto) 14.8 % Monocytes (%) (Auto) 13.2 % Eosinophils (%) (Auto) 0.3 % Basophils (%) (Auto) 0.3 % Neutrophils # (Auto) 4.2 TH/MM3 Lymphocytes # (Auto) 0.9 TH/MM3 Monocytes # (Auto) 0.8 TH/MM3 Eosinophils # (Auto) 0.0 TH/MM3 Basophils # (Auto) 0.0 TH/MM3 CBC Comment DIFF FINAL Differential Comment Prothrombin Time 28.8 SEC Prothromb Time International 2.5 RATIO Ratio Sodium Level 139 MEQ/L Potassium Level 3.6 MEQ/L Chloride Level 106 MEQ/L Carbon Dioxide Level 21.2 MEQ/L Anion Gap 12 MEQ/L Blood Urea Nitrogen 60 MG/DL Creatinine 3.41 MG/DL Estimat Glomerular Filtration 18 ML/MIN Rate Random Glucose 85 MG/DL Calcium Level 8.0 MG/DL Total Bilirubin 0.4 MG/DL Aspartate Amino Transf 16 U/L (AST/SGOT) Alanine Aminotransferase 17 U/L (ALT/SGPT) Alkaline Phosphatase 70 U/L Total Protein 5.6 GM/DL Albumin 1.8 GM/DL Imaging Last Impressions Lower Extremity Ultrasound 09/25/16 1139 Signed Impressions: Service Date/Time: September 18:06 - CONCLUSION: Negative for deep venous thrombosis. Gideon Gifford MD FACR Renal Ultrasound 09/25/16 0000 Signed Impressions: Service Date/Time: September 18:24 - CONCLUSION: There is no hydronephrosis. Right kidney is small and echogenic. Large cyst in left kidney. Gideon Gifford MD FACR Chest X-Ray 09/25/16 0000 Signed Impressions: Service Date/Time: September 08:48 - CONCLUSION: Left basilar density and blunting of the left costophrenic angle concerning for pleural effusion, consolidation and/or atelectasis. Madelin Echeverria MD Objective Remarks GENERAL: Patient is 76 yo lying in bed in NAD. SKIN: Warm and dry. HEAD: Normocephalic. EYES: No scleral icterus. No injection or drainage. NECK: Supple, trachea midline. No JVD or lymphadenopathy. CARDIOVASCULAR: Regular rate and rhythm without murmurs, gallops, or rubs. RESPIRATORY: Breath sounds equal bilaterally. No accessory muscle use. GASTROINTESTINAL: Abdomen soft, non-tender, nondistended. MUSCULOSKELETAL: No cyanosis, or edema. Neuro: Awake and alert A/P Problem List: (1) Dehydration, severe ICD Code: E86.0 Status: Acute (2) RAVEN (acute kidney injury) ICD Code: N17.9 Status: Acute (3) Digoxin toxicity ICD Code: T46.0X1A Status: Acute (4) Pressure sore on buttocks ICD Code: L89.309 Status: Acute Assessment and Plan Neuro: Awake and alert, avoid sedatives Pulm: Continue with oxygen keep sat >925 Bronchodilators, CV: Monitor HR and BP keep MAP>65mmHg. Lactic acid: 0.7 Continue to hold Digoxin, Dig. level 3.8 this morning, Patient is asymptomatic , no arrhythmias noted. : Monitor renal function, I/O's, avoid nephrotoxins. Renal function improving with hydration. On NS@70ml/hr Cr: 3.41 today from 4.0. Renal US: No hydronephrosis. Renal- Dr. Callahan GI: On PO heart healthy diet ID: Recent C-diff infection, C-diff PCR 09/25 negative, C-diff PCR positive 09/26 Continue with IV Flagyl. PO vanco added, Monitor for signs of infections ( Fever, WBC) HEME:Continue Coumadin for A-fib- INR 2.5 today ENDO: SSI if needed for glycemic control GI prophylaxis- on Protonix. DVT prophylaxis on Coumadin Doppler US LE negative for DVT Will sign off and transfer care to [facility] Level 3 Problem Qualifiers (1) Digoxin toxicity: Qualified Code: T46.0X1A - Digoxin toxicity, accidental or unintentional, initial encounter Jason Gross MD Sep 26, 2016 08:23
[2016-09-26] MEDS: PANTOPRAZOLE SOD 20 MG DELAYED RELEASE TAB PO SCH (08:31)
[2016-09-26] MEDS: SODIUM CHLORIDE 0.9% FLUSH 5 ML FLUSH IV FLUSH SCH ×2 (08:31→21:00)
--- NOTE | 2016-09-26 11:02 | HHI.NPPN ---
Subjective General Problems: Edema Renal Failure: Acute Interval History Renal function has improved. On IVF, no acute concerns. Did have 3 episodes of diarrhea overnight. (Monika Martinez) Review of Systems General Constitutional: Fatigue (Monika Martinez) Gastrointestinal Gastrointestinal: Diarrhea (Monika Martinez) Objective Data Data 09/25/16 09/26/16 19:00 07:00 Intake Total 1363 ml 1114 ml Output Total 350 ml 375 ml Balance 1013 ml 739 ml Intake IV Total 1363 ml 1114 ml Output Urine Total 350 ml 375 ml # Bowel Movements 2 1 Vital Signs Date Time Temp Pulse Resp B/P Pulse Ox O2 Delivery O2 Flow Rate FiO2 09/26/16 08:00 66 09/26/16 08:00 97.5 82 16 103/49 100 09/26/16 07:30 99 Nasal Cannula 2.00 09/26/16 06:00 54 09/26/16 04:00 65 09/26/16 04:00 97.6 65 15 103/56 97 09/26/16 02:00 66 09/26/16 00:00 65 09/26/16 00:00 97.7 65 17 106/52 97 09/25/16 22:00 70 09/25/16 21:34 97 Nasal Cannula 2.00 09/25/16 20:00 97.6 59 15 92/53 98 09/25/16 20:00 59 09/25/16 18:00 80 09/25/16 16:00 71 09/25/16 16:00 97.6 71 18 91/55 97 09/25/16 14:00 45 09/25/16 12:00 59 09/25/16 12:00 97.4 59 18 100/51 98 (Monika Martinez) -: 09/26/16 0504 09/26/16 0504 Imaging Last 72 hours Impressions Lower Extremity Ultrasound 09/25/16 1139 Signed Impressions: Service Date/Time: September 18:06 - CONCLUSION: Negative for deep venous thrombosis. Gideon Gifford MD FACR Renal Ultrasound 09/25/16 0000 Signed Impressions: Service Date/Time: September 18:24 - CONCLUSION: There is no hydronephrosis. Right kidney is small and echogenic. Large cyst in left kidney. Gideon Gifford MD FACR Chest X-Ray 09/25/16 0000 Signed Impressions: Service Date/Time: September 08:48 - CONCLUSION: Left basilar density and blunting of the left costophrenic angle concerning for pleural effusion, consolidation and/or atelectasis. Madelin Echeverria MD (Juan,Monika B. BLANKET WEAVER) Physical Exam General Appearance: Well Developed, Well Nourished, No Acute Distress (Juan,Monika B. BLANKET WEAVER) Eyes Eye Exam: Pupils Equal (Juan,Monika B. BLANKET WEAVER) Throat Throat Exam: Oral Mucosa [place] & Moist Throat Remarks very poor dentition (Juan,Monika B. BLANKET WEAVER) Pulmonary Resp Exam: Clear Bilaterally, Breath Sounds Equal, No Distress (Juan, Monika B. BLANKET WEAVER) Cardiology CV Exam: Good Perfusion, Irregular, Arrhythmia (Juan,Monika B. BLANKET WEAVER) Gastrointestinal/Abdomen GI Exam: Soft, Non-Tender, Bowel Sounds Present, Positive Bowel Movement ( Juan,Monika B. BLANKET WEAVER) Musculoskeletal MS Exam: Joints Intact (Juan,Monika B. BLANKET WEAVER) Integumentary Skin Exam: Clear, Warm, Dry, Intact (Juan,Monika B. BLANKET WEAVER) Extremeties Extremities Exam: Pedal Pulses Palpable, Moderate Edema (Juan,Monika B. BLANKET WEAVER) Neurologic Neuro Exam: Alert, Awake, Oriented, Speech Clear, Moving All Extremities ( Juan,Monika B. BLANKET WEAVER) Psychiatric Psych Exam: Appropriate Responses (Juan,Monika B. BLANKET WEAVER) VTE Prophylaxis Meds: Coumadin (Juan,Monika B. BLANKET WEAVER) Assessment/Plan Discussed Condition With: Patient Assessment Summary: RAVEN/Acute Renal Failure, Dehydration Problem List: (1) RAVEN (acute kidney injury) Plan: In a pt with normal renal function at baseline renal function is improving with IVF, continue RAVEN thought to be due to prerenal etiology, dehydration from profuse diarrhea after antibiotic administration K is acceptable UA benign he does demonstrate lower extremity edema,lower extremity duplex negative for DVT daily renal panel non oliguric but has not had a lot of urine production monitor urine output, oral intake encouraged (2) Digoxin toxicity Plan: monitor dig level, heart rate mostly 55-80 bpm (Monika Martinez) Plan patient was seen and examined. Renal function is improving. Digoxin level is still high. Taper off fluids. (Ruben Callahan MD) Problem Qualifiers (1) Digoxin toxicity: Qualified Code: T46.0X1A - Digoxin toxicity, accidental or unintentional, initial encounter Monkia Martinze Sep 26, 2016 11:02 Ruben Callahan MD Sep 26, 2016 16:22
[2016-09-26 15:03] LABS: C. DIFF EPI 027 PRESUMPTIVE POSITIVE (NEGATIVE); C. DIFF TOXIN PCR POSITIVE (NEGATIVE)
--- NOTE | 2016-09-26 16:08 | PD.CONS ---
HPI Service [facility] Hospitalists Consult Requested By Dr. Phelan Reason for Consult Medical management Primary Care Physician Pelon Jiang M.D. Diagnoses: History of Present Illness This is 76 y/o man who developed C. diff colitis after an antibiotic course for left arm cellulitis and had been recently discharged on 07/28/2016 on Flagy. Pt. presented to ED on 09/24 with profuse diarrhea. During evaluation, pt. was found in RAVEN, Creat 4.0, and severe dehydration. Complained that his tongue was stuck to the top of his mouth, was hypotensive on arrival. Pt. initially seen in [facility] facility was transferred to [facility] and was admitte to [facility]. Pt. has been evaluated by nephrology, remains on IVF. Creatinine improving slowly. Initial stool negative for cdiff however a second stool sample was sent today and now back positive for Cdiff Epid. Pt. on Flagyl. Digoxin was elevated, still elevated. INR is therapeutic. Pt. is hemodynamically stable, SR on monitor. Continues to have loose stools. Has mild tenderness to RLQ, no fever. No CP, no SOB. Has bilateral leg swelling, US negative for DVT. Hospitalist services requested for medical management. (Gi Royal) Review of Systems ROS Limitations: Poor Historian Respiratory: COMPLAINS OF: Cough Gastrointestinal: COMPLAINS OF: Abdominal pain, Diarrhea (Gi Royal) Past Family Social History Past Medical History HTN hard of hearing Hyperlipidemia Hypertension Atrial fibrillation On coumadin cdiff Jul 2016 CKD Cellulitis left arm CAD Past Surgical History PCI with stent placement x 2 KOMAL Left eye growth removal Reported Medications Reported Meds & Active Scripts Active Reported Digoxin 0.25 Mg Tab 0.25 Mg PO DAILY Atorvastatin (Atorvastatin Calcium) 10 Mg Tab 10 Mg PO HS Omeprazole 20 Mg Tab 20 Mg PO DAILY Warfarin 4 Mg Tab 4 Mg PO DAILY Probiotic (Lactobacillus Acidophilus) 1 Cap Cap 1 Cap PO TIDAC Tamsulosin (Tamsulosin HCl) 0.4 Mg Cap 0.4 Mg PO HS Pepto-Bismol Liq (Bismuth Subsalicylate) 262 Mg/15 Ml Susp 30 Ml PO PRN Do not exceed 8 doses (240 mL or 16 tbsp) in 24 hours. Flagyl (Metronidazole) 500 Mg Tab 500 Mg PO TID Multivitamin Men (Multiple Vitamins W/ Minerals) 1 Tab Tab 1 Tab PO DAILY (Gi Royal) Allergies: Coded Allergies: No Known Allergies (Verified , 09/24/16) Active Ordered Medications Inpatient Medications Acetaminophen (Tylenol) 650 mg Q6H PRN PO PAIN 1-10 AND/OR FEVER >101F; Start 09/24/16 at 19:30 Albuterol/ Ipratropium (Duoneb Neb) 1 ampule Q4HR NEB PRN INH WHEEZING; Start 09/24/16 at 19:30 Atorvastatin Calcium (Lipitor) 10 mg HS PO Last administered on 09/25/16 20:26 ; Start 09/24/16 at 21:00 Chlorhexidine Gluconate (Chlorhexidine 2% Cloth) 3 pack Taper DAILY@04 TOP Last administered on 09/26/16 04:00; Start 09/25/16 at 04:00; Stop 09/21/17 at 03:59 Chlorhexidine Gluconate 3 pack 3 pack UNSCH PRN TOP HYGIENIC CARE; Start at 19:30 Heparin Sodium (Porcine) (Heparin Inj) 5,000 units Q12H SQ ; Start 09/24/16 at 20:00; Stop 09/24/16 at 20:00; Status DC IV Flush (NS Flush) 2 ml BID IV FLUSH Last administered on 09/24/16 20:56; Start 09/24/16 at 21:00 Metronidazole (Flagyl 500 Mg Inj) 100 ml @ 100 mls/hr Q12H IV Last administered on 09/26/16 13:19; Start 09/25/16 at 01:00 Metronidazole (Flagyl) 500 mg TID PO ; Start 09/25/16 at 09:00; Stop 09/25/16 at 09:00; Status DC Miscellaneous Information 1 [id number] Last administered on 09/24/16 19:30; Start 09/24/16 at 19:30 Naloxone HCl (Narcan Inj) 0.4 mg UNSCH PRN IV SEE LABEL COMMENTS; Start at 19:00 Ondansetron HCl (Zofran Inj) 4 mg Q6H PRN IV NAUSEA OR VOMITING; Start at 19:30 Pantoprazole Sodium (Protonix) 20 mg DAILY PO Last administered on 09/26/16 08 :31; Start 09/25/16 at 09:00 Patient Medication Teaching 1 1 ONCE ONCE XX Last administered on 09/25/16 16 :29; Start 09/25/16 at 16:00; Stop 09/25/16 at 16:01; Status DC Sodium Chloride 1,000 ml @ 0 mls/hr BOLUS ONCE IV Last administered on 01:42; Start 09/25/16 at 00:30; Stop 09/25/16 at 00:31; Status DC Sodium Chloride (NS 1000 ml Inj) 1,000 ml @ 999 mls/hr BOLUS ONCE IV Last administered on 09/24/16 19:40; Start 09/24/16 at 19:30; Stop 09/24/16 at 20:30 ; Status DC Tamsulosin HCl (Flomax) 0.4 mg HS PO Last administered on 09/25/16 20:26; Start 09/24/16 at 21:00 Vancomycin HCl (VANCOMYCIN for oral use only) 125 mg ONCE PO Last administered on 09/24/16 19:39; Start 09/24/16 at 18:45; Stop 09/24/16 at 20:00; Status DC Warfarin Sodium (Coumadin) 4 mg DAILY@1600 PO Last administered on 09/25/16 16 :28; Start 09/25/16 at 16:00 Family History Reviewed, non contributory Social History , lives alone. Has grown children, close to ex . No ETOH, no substance abuse, quit smoking 1998. Uses walker for ambulation (Gi Royal) Physical Exam Vital Signs Vital Signs Date Time Temp Pulse Resp B/P Pulse Ox O2 Delivery O2 Flow Rate FiO2 09/26/16 14:00 94 09/26/16 12:00 98.6 69 18 98/55 98 09/26/16 12:00 69 09/26/16 10:00 71 09/26/16 08:00 66 09/26/16 08:00 97.5 82 16 103/49 100 09/26/16 07:30 99 Nasal Cannula 2.00 09/26/16 06:00 54 09/26/16 04:00 65 09/26/16 04:00 97.6 65 15 103/56 97 09/26/16 02:00 66 09/26/16 00:00 65 09/26/16 00:00 97.7 65 17 106/52 97 09/25/16 22:00 70 09/25/16 21:34 97 Nasal Cannula 2.00 09/25/16 20:00 97.6 59 15 92/53 98 09/25/16 20:00 59 09/25/16 18:00 80 09/25/16 16:00 71 09/25/16 16:00 97.6 71 18 91/55 97 Physical Exam GENERAL: This is a well-nourished, well-developed patient, in no apparent distress. SKIN: No rashes, ecchymoses or lesions. Cool and dry. HEAD: Atraumatic. Normocephalic. No temporal or scalp tenderness. EYES: Pupils equal round and reactive. Extraocular motions intact. No scleral icterus. No injection or drainage. ENT: Nose without bleeding, purulent drainage or septal hematoma. Throat without erythema, tonsillar hypertrophy or exudate. Uvula midline. Airway patent. NECK: Trachea midline. No JVD or lymphadenopathy. Supple, nontender, no meningeal signs. CARDIOVASCULAR: Regular rate and rhythm without murmurs, gallops, or rubs. RESPIRATORY: Diminished, coarse upper airway, cleared with coughing. Breath sounds equal bilaterally. GASTROINTESTINAL: Abdomen soft, mildly tender to RLQ. Nondistended. No hepato- splenomegaly, or palpable masses. No guarding. MUSCULOSKELETAL: Extremities without clubbing, cyanosis. Bilat pedal edema, 1+, pedal pulses 1+. No joint tenderness, effusion, or edema noted. No calf tenderness. Negative Homans sign bilaterally. NEUROLOGICAL: Awake, oriented x 3. No focal deficits. Pleasant. Laboratory Laboratory Tests Test 09/25/16 09/26/16 09/26/16 15:52 05:04 09:00 Digoxin Level 3.8 3.8 White Blood Count 5.8 Red Blood Count 3.73 Hemoglobin 10.7 Hematocrit 32.7 Mean Corpuscular Volume 87.6 Mean Corpuscular Hemoglobin 28.6 Mean Corpuscular Hemoglobin 32.7 Concent Red Cell Distribution Width 17.1 Platelet Count 259 Mean Platelet Volume 8.6 Neutrophils (%) (Auto) 71.4 Lymphocytes (%) (Auto) 14.8 Monocytes (%) (Auto) 13.2 Eosinophils (%) (Auto) 0.3 Basophils (%) (Auto) 0.3 Neutrophils # (Auto) 4.2 Lymphocytes # (Auto) 0.9 Monocytes # (Auto) 0.8 Eosinophils # (Auto) 0.0 Basophils # (Auto) 0.0 CBC Comment DIFF FINAL Differential Comment Prothrombin Time 28.8 Prothromb Time International 2.5 Ratio Sodium Level 139 Potassium Level 3.6 Chloride Level 106 Carbon Dioxide Level 21.2 Anion Gap 12 Blood Urea Nitrogen 60 Creatinine 3.41 Estimat Glomerular Filtration 18 Rate Random Glucose 85 Calcium Level 8.0 Total Bilirubin 0.4 Aspartate Amino Transf 16 (AST/SGOT) Alanine Aminotransferase 17 (ALT/SGPT) Alkaline Phosphatase 70 Total Protein 5.6 Albumin 1.8 Stool C. difficile Toxin (PCR) POSITIVE Stl C. difficile Toxin PRESUMPTIVE Epiderm 027 POSITIVE Date/Time Procedure Status Source Growth 09/25/16 08:20 Urine Culture - Preliminary Resulted Urine Catheterized Urine NO GROWTH IN 24 HOURS. (Gi Royal) Result Diagram: 09/26/16 0504 09/26/16 0504 Imaging Last Impressions Lower Extremity Ultrasound 09/25/16 1139 Signed Impressions: Service Date/Time: September 18:06 - CONCLUSION: Negative for deep venous thrombosis. Gideon Gifford MD FACR Renal Ultrasound 09/25/16 0000 Signed Impressions: Service Date/Time: September 18:24 - CONCLUSION: There is no hydronephrosis. Right kidney is small and echogenic. Large cyst in left kidney. Gideon Gifford MD FACR Chest X-Ray 09/25/16 0000 Signed Impressions: Service Date/Time: September 08:48 - CONCLUSION: Left basilar density and blunting of the left costophrenic angle concerning for pleural effusion, consolidation and/or atelectasis. Madelin Echeverria MD (Gi Royal) A/P Diagnosis: (1) RAVEN (acute kidney injury) (2) Dehydration, severe (3) Digoxin toxicity (4) Recurrent Clostridium difficile diarrhea (5) CAD (coronary artery disease) (6) History of atrial fibrillation (7) Anticoagulated on Coumadin Assessment and Plan Thank you for this consultation, we will assist with medical management. RAVEN secondary to diarrhea, severely dehydrated -Continue with IVF -Monitor I/O -BMP daily -Nephrology following -Avoid nephrotoxic agents, NSAIDs, diuretics Dig toxicity sec. RAVEN -Hold dig -Dig level daily Recurrent cdiff, + Epid 027 -Continue Flagyl -will start Vancomycin 250 mg PO QID Hx afib, on coumadin -Telemetry monitoring -Continue coumadin, follow INR PT for eval and treatment Labs in am Plan of care discussed with patient, attending, and RN. Further management of the patient will be dependent on the hospital course. This patient was seen by myself and Dr. Vasquez, this consultation is written on his behalf. 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
[2016-09-26] MEDS: WARFARIN SOD 4 MG TAB PO SCH (16:37)
[2016-09-26] MEDS: VANCOMYCIN 500 MG VIAL (FOR ORAL USE ONLY) PO SCH ×2 (17:50→21:00)
[2016-09-26] MEDS: ATORVASTATIN 10 MG TAB PO SCH (21:00)
[2016-09-26] MEDS: TAMSULOSIN HCL 0.4 MG CAP PO SCH (21:00)
[2016-09-27] VITALS (14 sets, daily range): BP systolic 104–132; BP diastolic 54–58; PULSE 62–86; RESP 13–18; TEMP 97.1–98.5; O2SAT 95–100
[2016-09-27] MEDS: CHLORHEXIDINE GLUCONATE 2 % 1 PACK (2 CLOTHS) TOP SCH (02:22)
[2016-09-27] MEDS: metroNIDAZOLE 500 MG INJ 100 ML IV SCH ×2 (05:22→13:04)
[2016-09-27 07:49] LABS: AUTOMATED NEUTROPHIL # 3.6 TH/MM3 (1.8-7.7); BASOPHIL % 0.6 % (0.0-2.0); EOSINOPHIL # 0.1 TH/MM3 (0-0.4); HEMATOCRIT 32.8 % (39.0-51.0); HEMO FLAGS DIFF FINAL; LYMPH % 17.6 % (9.0-44.0); LYMPHOCYTE # 0.9 TH/MM3 (1.0-4.8); MEAN CELL VOLUME 87.9 FL (80.0-100.0); MEAN CORPUSCULAR HEMOGLOBIN 28.7 PG (27.0-34.0); MEAN CORPUSCULAR HGB CONC 32.6 % (32.0-36.0); MONO % 11.9 % (0.0-8.0); NEUT % 68.9 % (16.0-70.0); PLATELET COUNT 254 TH/MM3 (150-450); RED BLOOD COUNT 3.72 MIL/MM3 (4.50-5.90); WHITE BLOOD COUNT 5.3 TH/MM3 (4.0-11.0)
[2016-09-27 07:54] LABS: INTERNATIONAL NORMALIZED RATIO 3.1 RATIO; PROTHROMBIN TIME - PATIENT 36.4 SEC (9.8-11.6)
[2016-09-27 08:16] LABS: BICARBONATE 24.2 MEQ/L (21.0-32.0); POTASSIUM 3.6 MEQ/L (3.5-5.1)
[2016-09-27 08:30] LABS: DIGOXIN 2.9 NG/ML (0.8-2.0)
[2016-09-27] MEDS: VANCOMYCIN 500 MG VIAL (FOR ORAL USE ONLY) PO SCH ×4 (09:10→21:30)
[2016-09-27] MEDS: PANTOPRAZOLE SOD 20 MG DELAYED RELEASE TAB PO SCH (09:10)
[2016-09-27] MEDS: SODIUM CHLORIDE 0.9% FLUSH 5 ML FLUSH IV FLUSH SCH ×2 (09:10→21:00)
[2016-09-27] MEDS: SODIUM CHLOR 0.9% 1000 ML INJ 1,000 ML IV SCH (09:11)
--- NOTE | 2016-09-27 13:20 | HHI.NPPN ---
Subjective General Problems: Edema Renal Failure: Acute Review of Systems General Constitutional: Fatigue Gastrointestinal Gastrointestinal: Diarrhea Objective Data Data 09/26/16 09/27/16 19:00 07:00 Intake Total 726 ml 1235 ml Output Total 250 ml 400 ml Balance 476 ml 835 ml Intake Oral 480 ml IV Total 726 ml 755 ml Output Urine Total 250 ml 400 ml # Bowel Movements 1 3 Vital Signs Date Time Temp Pulse Resp B/P Pulse Ox O2 Delivery O2 Flow Rate FiO2 09/27/16 10:00 72 09/27/16 08:00 68 09/27/16 08:00 70 09/27/16 07:24 97 Nasal Cannula 2.00 09/27/16 06:00 62 09/27/16 04:00 67 09/27/16 04:00 98.0 67 13 118/56 98 09/27/16 02:00 71 09/27/16 00:00 81 09/27/16 00:00 97.5 81 14 104/56 96 09/26/16 22:00 87 09/26/16 20:56 97 Nasal Cannula 2.00 09/26/16 20:00 72 09/26/16 20:00 97.8 72 21 106/55 99 09/26/16 18:00 92 09/26/16 16:00 84 09/26/16 16:00 97.9 84 21 103/51 99 09/26/16 14:00 94 -: 09/27/16 0553 09/27/16 0553 Physical Exam General Appearance: Well Developed, Well Nourished, No Acute Distress Eyes Eye Exam: Pupils Equal Throat Throat Exam: Oral Mucosa [place] & Moist Pulmonary Resp Exam: Clear Bilaterally, Breath Sounds Equal, No Distress Cardiology CV Exam: Good Perfusion, Irregular, Arrhythmia Gastrointestinal/Abdomen GI Exam: Soft, Non-Tender, Bowel Sounds Present, Positive Bowel Movement Musculoskeletal MS Exam: Joints Intact Integumentary Skin Exam: Clear, Warm, Dry, Intact Extremeties Extremities Exam: Pedal Pulses Palpable, Moderate Edema Neurologic Neuro Exam: Alert, Awake, Oriented, Speech Clear, Moving All Extremities Psychiatric Psych Exam: Appropriate Responses Assessment/Plan Discussed Condition With: Patient Assessment Summary: RAVEN/Acute Renal Failure, Dehydration Problem List: (1) RAVEN (acute kidney injury) Plan: In a pt with normal renal function at baseline renal function is improving with IVF,creatinine declined to 2.9 RAVEN thought to be due to prerenal etiology, dehydration from profuse diarrhea after antibiotic administration K is acceptable Dig 2.9 UA benign he does demonstrate lower extremity edema,lower extremity duplex negative for DVT monitor BMP (2) Digoxin toxicity Plan: monitor dig level, heart rate mostly 55-80 bpm Problem Qualifiers (1) Digoxin toxicity: Qualified Code: T46.0X1A - Digoxin toxicity, accidental or unintentional, initial encounter Soumya Drew MD Sep 27, 2016 13:20
--- NOTE | 2016-09-27 15:24 | HHI.PR ---
Subjective Remarks Patient has 3 diarrhea last night and one this morning as per patient No abdominal pain No nausea vomiting No shortness of breath No chest pain No palpitations No dizziness Review of system for 12 point system otherwise unremarkable Objective Objective Results - Vital Signs Date Time Temp Pulse Resp B/P Pulse Ox O2 Delivery O2 Flow Rate FiO2 09/27/16 10:00 72 09/27/16 08:00 68 09/27/16 08:00 70 09/27/16 07:24 97 Nasal Cannula 2.00 09/27/16 06:00 62 09/27/16 04:00 67 09/27/16 04:00 98.0 67 13 118/56 98 09/27/16 02:00 71 09/27/16 00:00 81 09/27/16 00:00 97.5 81 14 104/56 96 09/26/16 22:00 87 09/26/16 20:56 97 Nasal Cannula 2.00 09/26/16 20:00 72 09/26/16 20:00 97.8 72 21 106/55 99 09/26/16 18:00 92 09/26/16 16:00 84 09/26/16 16:00 97.9 84 21 103/51 99 I/O 09/26/16 09/26/16 09/26/16 09/27/16 09/27/16 09/27/16 07:00 15:00 23:00 07:00 15:00 23:00 Intake Total 545 ml 726 ml 845 ml 390 ml Output Total 225 ml 250 ml 200 ml 200 ml Balance 320 ml 476 ml 645 ml 190 ml Intake Oral 480 ml IV Total 545 ml 726 ml 365 ml 390 ml Output Urine Total 225 ml 250 ml 200 ml 200 ml # Bowel Movements 1 1 3 Result Diagram: 09/27/16 0553 09/27/16 0553 Imaging Last Impressions Lower Extremity Ultrasound 09/25/16 1139 Signed Impressions: Service Date/Time: September 18:06 - CONCLUSION: Negative for deep venous thrombosis. Gideon Gifford MD FACR Renal Ultrasound 09/25/16 0000 Signed Impressions: Service Date/Time: September 18:24 - CONCLUSION: There is no hydronephrosis. Right kidney is small and echogenic. Large cyst in left kidney. Gideon Gifford MD FACR Chest X-Ray 09/25/16 0000 Signed Impressions: Service Date/Time: September 08:48 - CONCLUSION: Left basilar density and blunting of the left costophrenic angle concerning for pleural effusion, consolidation and/or atelectasis. Madelin Echeverria MD Other Results Laboratory Tests Test 09/27/16 05:53 White Blood Count 5.3 Red Blood Count 3.72 Hemoglobin 10.7 Hematocrit 32.8 Mean Corpuscular Volume 87.9 Mean Corpuscular Hemoglobin 28.7 Mean Corpuscular Hemoglobin 32.6 Concent Red Cell Distribution Width 17.0 Platelet Count 254 Mean Platelet Volume 8.5 Neutrophils (%) (Auto) 68.9 Lymphocytes (%) (Auto) 17.6 Monocytes (%) (Auto) 11.9 Eosinophils (%) (Auto) 1.0 Basophils (%) (Auto) 0.6 Neutrophils # (Auto) 3.6 Lymphocytes # (Auto) 0.9 Monocytes # (Auto) 0.6 Eosinophils # (Auto) 0.1 Basophils # (Auto) 0.0 CBC Comment DIFF FINAL Differential Comment Prothrombin Time 36.4 Prothromb Time International 3.1 Ratio Sodium Level 141 Potassium Level 3.6 Chloride Level 108 Carbon Dioxide Level 24.2 Anion Gap 9 Blood Urea Nitrogen 53 Creatinine 2.97 Estimat Glomerular Filtration 21 Rate Random Glucose 100 Calcium Level 7.5 Digoxin Level 2.9 Date/Time Procedure Status Source Growth 09/25/16 08:20 Urine Culture - Final Complete Urine Catheterized Urine NO GROWTH IN 48 HOURS. Physical Exam Physical Exam GENERAL: This is a well-nourished, well-developed patient, in no apparent distress. SKIN: No rashes, ecchymoses or lesions. Cool and dry. HEAD: Atraumatic. Normocephalic. No temporal or scalp tenderness. EYES: Pupils equal round and reactive. Extraocular motions intact. No scleral icterus. No injection or drainage. ENT: Airway patent. NECK: Trachea midline. Supple, nontender, no meningeal signs. CARDIOVASCULAR: Regular rate and rhythm without murmurs, gallops, or rubs. RESPIRATORY: Diminished, coarse upper airway, cleared with coughing. Breath sounds equal bilaterally. GASTROINTESTINAL: Abdomen soft, mildly tender to RLQ. Nondistended. No hepato- splenomegaly, or palpable masses. No guarding. MUSCULOSKELETAL: Extremities without clubbing, cyanosis. Bilat pedal edema, 1+, pedal pulses 1+. No joint tenderness, effusion, or edema noted. No calf tenderness. Negative Homans sign bilaterally. NEUROLOGICAL: Awake, oriented x 3. No focal deficits. Pleasant. A/P Assessment and Plan (1) RAVEN (acute kidney injury) (2) Dehydration, severe (3) Digoxin toxicity (4) Recurrent Clostridium difficile diarrhea (5) CAD (coronary artery disease) (6) History of atrial fibrillation (7) Anticoagulated on Coumadin Plan RAVEN secondary to diarrhea, severely dehydrated -Continue with IVF -Monitor I/O -BMP daily. Improving BUN/creatinine -Nephrology following, input appreciated -Avoid nephrotoxic agents, NSAIDs, diuretics Dig toxicity sec. RAVEN -Hold dig -Dig level daily, improving -Heart rate stable Recurrent cdiff, + Epid 027 -DicContinue Flagyl -Continue Vancomycin 250 mg PO QID Hx afib, on coumadin -Telemetry monitoring -Hold coumadin, increase INR PT for eval and treatment Labs in am Plan of care discussed with patient, and RN. Patient is stable to be transferred to telemetry floor Further management of the patient will be dependent on the hospital course. Teri Vasquez MD Sep 27, 2016 15:24
[2016-09-27] MEDS: TAMSULOSIN HCL 0.4 MG CAP PO SCH (21:30)
[2016-09-27] MEDS: ATORVASTATIN 10 MG TAB PO SCH (21:30)
[2016-09-28] VITALS (14 sets, daily range): BP systolic 99–128; BP diastolic 57–64; PULSE 58–104; RESP 14–23; TEMP 97.9–98.5; O2SAT 94–98
[2016-09-28 02:37] LABS: MAGNESIUM 1.7 MG/DL (1.5-2.5)
[2016-09-28] MEDS: CHLORHEXIDINE GLUCONATE 2 % 1 PACK (2 CLOTHS) TOP SCH (04:00)
[2016-09-28] MEDS ORDERED: SODIUM CHLORIDE 0.9% IV ONE (05:00)
[2016-09-28] MEDS ORDERED: SODIUM PHOSPHATE IV ONE (05:00)
[2016-09-28] MEDS: MAGNESIUM SULFAT 1 GM PREMIX 100 ML x2 bags IV SCH ×2 (05:12→06:30)
[2016-09-28 07:14] LABS: HEMATOCRIT 32.7 % (39.0-51.0); MEAN CELL VOLUME 87.3 FL (80.0-100.0); MEAN CORPUSCULAR HEMOGLOBIN 28.9 PG (27.0-34.0); MEAN CORPUSCULAR HGB CONC 33.1 % (32.0-36.0); PLATELET COUNT 250 TH/MM3 (150-450); RED BLOOD COUNT 3.75 MIL/MM3 (4.50-5.90); RED CELL DISTRIBUTION WIDTH 17.3 % (11.6-17.2); REVIEW FLAG FINAL; WHITE BLOOD COUNT 5.7 TH/MM3 (4.0-11.0)
[2016-09-28 07:52] LABS: BICARBONATE 22.2 MEQ/L (21.0-32.0); DIGOXIN 2.3 NG/ML (0.8-2.0); POTASSIUM 3.5 MEQ/L (3.5-5.1)
[2016-09-28 08:06] LABS: CALCIUM-PROTEIN CORRECTED 8.5 MG/DL (8.5-10.1)
[2016-09-28] MEDS: VANCOMYCIN 500 MG VIAL (FOR ORAL USE ONLY) PO SCH ×3 (08:46→20:32)
[2016-09-28] MEDS: PANTOPRAZOLE SOD 20 MG DELAYED RELEASE TAB PO SCH (08:46)
[2016-09-28] MEDS: SODIUM CHLORIDE 0.9% FLUSH 5 ML FLUSH IV FLUSH SCH ×2 (08:47→20:32)
[2016-09-28] MEDS: SODIUM CHLOR 0.9% 1000 ML INJ 1,000 ML IV SCH (08:47)
--- NOTE | 2016-09-28 12:06 | HHI.NPPN ---
Subjective General Problems: Edema Renal Failure: Acute Review of Systems General Constitutional: Fatigue Gastrointestinal Gastrointestinal: Diarrhea Objective Data Data 09/27/16 09/28/16 19:00 07:00 Intake Total 1254 ml 660 ml Output Total 350 ml 425 ml Balance 904 ml 235 ml Intake Oral 600 ml IV Total 654 ml 660 ml Output Urine Total 350 ml 425 ml # Bowel Movements 1 0 Vital Signs Date Time Temp Pulse Resp B/P Pulse Ox O2 Delivery O2 Flow Rate FiO2 09/28/16 09:13 96 Nasal Cannula 1.00 09/28/16 06:00 65 09/28/16 04:00 98.5 64 14 121/62 95 09/28/16 04:00 64 09/28/16 02:00 75 09/28/16 00:00 98.2 69 17 128/58 95 09/28/16 00:00 69 09/27/16 22:00 80 09/27/16 20:17 100 Nasal Cannula 2.00 09/27/16 20:00 68 09/27/16 20:00 97.7 68 16 132/55 95 09/27/16 18:00 79 09/27/16 16:00 98.5 68 18 112/58 100 09/27/16 16:00 68 09/27/16 14:00 78 -: 09/28/16 0615 09/28/16 0615 Physical Exam General Appearance: Well Developed, Well Nourished, No Acute Distress Eyes Eye Exam: Pupils Equal Throat Throat Exam: Oral Mucosa [place] & Moist Pulmonary Resp Exam: Clear Bilaterally, Breath Sounds Equal, No Distress Cardiology CV Exam: Good Perfusion, Irregular, Arrhythmia Gastrointestinal/Abdomen GI Exam: Soft, Non-Tender, Bowel Sounds Present, Positive Bowel Movement Musculoskeletal MS Exam: Joints Intact Integumentary Skin Exam: Clear, Warm, Dry, Intact Extremeties Extremities Exam: Pedal Pulses Palpable, Moderate Edema Neurologic Neuro Exam: Alert, Awake, Oriented, Speech Clear, Moving All Extremities Psychiatric Psych Exam: Appropriate Responses Assessment/Plan Discussed Condition With: Patient Assessment Summary: RAVEN/Acute Renal Failure, Dehydration Problem List: (1) RAVEN (acute kidney injury) Plan: In a pt with normal renal function at baseline renal function is improving with IVF NS at 50 cc/hr,creatinine declined to 2.56 RAVEN thought to be due to prerenal etiology, dehydration from profuse diarrhea after antibiotic administration K is acceptable Dig 2.3 UA benign he does demonstrate lower extremity edema,lower extremity duplex negative for DVT monitor BMP (2) Digoxin toxicity Plan: monitor dig level, heart rate Increased, Afib, ?V tach PVC Problem Qualifiers (1) Digoxin toxicity: Qualified Code: T46.0X1A - Digoxin toxicity, accidental or unintentional, initial encounter Soumya Drew MD Sep 28, 2016 12:06
--- NOTE | 2016-09-28 12:48 | HHI.PR ---
Subjective Remarks Patient has 3 small squirt of loose stool No abdominal pain No nausea vomiting No shortness of breath No chest pain No palpitations No dizziness Review of system for 12 point system otherwise unremarkable Objective Objective Results - Vital Signs Date Time Temp Pulse Resp B/P Pulse Ox O2 Delivery O2 Flow Rate FiO2 09/28/16 09:13 96 Nasal Cannula 1.00 09/28/16 06:00 65 09/28/16 04:00 98.5 64 14 121/62 95 09/28/16 04:00 64 09/28/16 02:00 75 09/28/16 00:00 98.2 69 17 128/58 95 09/28/16 00:00 69 09/27/16 22:00 80 09/27/16 20:17 100 Nasal Cannula 2.00 09/27/16 20:00 68 09/27/16 20:00 97.7 68 16 132/55 95 09/27/16 18:00 79 09/27/16 16:00 98.5 68 18 112/58 100 09/27/16 16:00 68 09/27/16 14:00 78 I/O 09/27/16 09/27/16 09/27/16 09/28/16 09/28/16 09/28/16 07:00 15:00 23:00 07:00 15:00 23:00 Intake Total 390 ml 1254 ml 287 ml 373 ml Output Total 200 ml 350 ml 200 ml 225 ml Balance 190 ml 904 ml 87 ml 148 ml Intake Oral 600 ml IV Total 390 ml 654 ml 287 ml 373 ml Output Urine Total 200 ml 350 ml 200 ml 225 ml # Bowel Movements 3 1 0 0 Result Diagram: 09/28/16 0615 09/28/16 0615 Imaging Last Impressions Lower Extremity Ultrasound 09/25/16 1139 Signed Impressions: Service Date/Time: September 18:06 - CONCLUSION: Negative for deep venous thrombosis. Gideon Gifford MD FACR Renal Ultrasound 09/25/16 0000 Signed Impressions: Service Date/Time: September 18:24 - CONCLUSION: There is no hydronephrosis. Right kidney is small and echogenic. Large cyst in left kidney. Gideon Gifford MD FACR Chest X-Ray 09/25/16 0000 Signed Impressions: Service Date/Time: September 08:48 - CONCLUSION: Left basilar density and blunting of the left costophrenic angle concerning for pleural effusion, consolidation and/or atelectasis. Madelin Echeverria MD Other Results Laboratory Tests Test 09/28/16 09/28/16 01:59 06:15 Phosphorus Level 1.9 Magnesium Level 1.7 White Blood Count 5.7 Red Blood Count 3.75 Hemoglobin 10.8 Hematocrit 32.7 Mean Corpuscular Volume 87.3 Mean Corpuscular Hemoglobin 28.9 Mean Corpuscular Hemoglobin 33.1 Concent Red Cell Distribution Width 17.3 Platelet Count 250 Mean Platelet Volume 8.1 Sodium Level 141 Potassium Level 3.5 Chloride Level 110 Carbon Dioxide Level 22.2 Anion Gap 9 Blood Urea Nitrogen 45 Creatinine 2.56 Estimat Glomerular Filtration 25 Rate Random Glucose 104 Calcium Level 7.4 Protein Corrected Calcium 8.5 Total Protein 5.2 Digoxin Level 2.3 Date/Time Procedure Status Source Growth 09/25/16 08:20 Urine Culture - Final Complete Urine Catheterized Urine NO GROWTH IN 48 HOURS. Physical Exam Physical Exam GENERAL: This is a well-nourished, well-developed patient, in no apparent distress. SKIN: No rashes, ecchymoses or lesions. Cool and dry. HEAD: Atraumatic. Normocephalic. No temporal or scalp tenderness. EYES: Pupils equal round and reactive. Extraocular motions intact. No scleral icterus. No injection or drainage. ENT: Airway patent. NECK: Trachea midline. Supple, nontender, no meningeal signs. CARDIOVASCULAR: Regular rate and rhythm without murmurs, gallops, or rubs. RESPIRATORY: Diminished, coarse upper airway, cleared with coughing. Breath sounds equal bilaterally. GASTROINTESTINAL: Abdomen soft, mildly tender to RLQ. Nondistended. No hepato- splenomegaly, or palpable masses. No guarding. MUSCULOSKELETAL: Extremities without clubbing, cyanosis. Bilat pedal edema, 1+, pedal pulses 1+. No joint tenderness, effusion, or edema noted. No calf tenderness. Negative Homans sign bilaterally. NEUROLOGICAL: Awake, oriented x 3. No focal deficits. Pleasant. A/P Assessment and Plan (1) RAVEN (acute kidney injury) (2) Dehydration, severe (3) Digoxin toxicity (4) Recurrent Clostridium difficile diarrhea (5) CAD (coronary artery disease) (6) History of atrial fibrillation (7) Anticoagulated on Coumadin Plan RAVEN secondary to diarrhea, severely dehydrated -Continue with IVF -Monitor I/O -BMP daily. Improving BUN/creatinine -Nephrology following, input appreciated -Avoid nephrotoxic agents, NSAIDs, diuretics Dig toxicity sec. RAVEN -Hold dig -Dig level daily, improving -Heart rate stable. Patient has few short pauses. And as per RN had low heart rate in 40s at one point Recurrent cdiff, + Epid 027 -DicContinue Flagyl -Continue Vancomycin 250 mg PO QID Hx afib, on coumadin -Telemetry monitoring -Hold coumadin, increase INR. Pharmacy to manage Coumadin. PT/INR daily PT for eval and treatment Labs in am Plan of care discussed with patient, and RN. Patient is stable to be transferred to [facility] Further management of the patient will be dependent on the hospital course. Teri Vasquez MD Sep 28, 2016 12:48
[2016-09-28 18:19] LABS: INTERNATIONAL NORMALIZED RATIO 3.7 RATIO; PROTHROMBIN TIME - PATIENT 43.1 SEC (9.8-11.6)
[2016-09-28] MEDS: TAMSULOSIN HCL 0.4 MG CAP PO SCH (20:32)
[2016-09-28] MEDS: ATORVASTATIN 10 MG TAB PO SCH (20:32)
[2016-09-29] VITALS (12 sets, daily range): BP systolic 110–158; BP diastolic 64–92; PULSE 74–113; RESP 16–30; TEMP 97.9–98.6; O2SAT 92–99
[2016-09-29] MEDS: CHLORHEXIDINE GLUCONATE 2 % 1 PACK (2 CLOTHS) TOP SCH ×2 (03:08→20:32)
[2016-09-29] MEDS: SODIUM CHLOR 0.9% 1000 ML INJ 1,000 ML IV SCH ×2 (03:50→20:32)
[2016-09-29] MEDS ORDERED: POTASSIUM CHLOR 20 MEQ PREMIX 100 ML IV ONE (06:00)
[2016-09-29] MEDS ORDERED: POTASSIUM CHLORIDE 20 MEQ CONTROLLED RELEASE TAB PO ONE (06:00)
[2016-09-29 07:36] LABS: INTERNATIONAL NORMALIZED RATIO 2.7 RATIO; PROTHROMBIN TIME - PATIENT 30.9 SEC (9.8-11.6)
[2016-09-29 08:09] LABS: BICARBONATE 23.5 MEQ/L (21.0-32.0); MAGNESIUM 1.9 MG/DL (1.5-2.5); POTASSIUM 3.8 MEQ/L (3.5-5.1)
[2016-09-29 08:21] LABS: CALCIUM-PROTEIN CORRECTED 8.4 MG/DL (8.5-10.1)
[2016-09-29] MEDS: PANTOPRAZOLE SOD 20 MG DELAYED RELEASE TAB PO SCH (09:27)
[2016-09-29] MEDS: VANCOMYCIN 500 MG VIAL (FOR ORAL USE ONLY) PO SCH ×4 (09:27→20:32)
[2016-09-29] MEDS: SODIUM CHLORIDE 0.9% FLUSH 5 ML FLUSH IV FLUSH SCH ×2 (09:28→20:32)
--- NOTE | 2016-09-29 13:58 | HHI.PR ---
Subjective Remarks Patient has 3 small squirt of loose stool last night none during daytime No abdominal pain No nausea vomiting No shortness of breath No chest pain No palpitations No dizziness Review of system for 12 point system otherwise unremarkable Objective Objective Results - Vital Signs Date Time Temp Pulse Resp B/P Pulse Ox O2 Delivery O2 Flow Rate FiO2 09/29/16 08:50 95 Nasal Cannula 1.00 09/29/16 06:00 94 09/29/16 04:00 82 09/29/16 04:00 97.9 82 20 116/64 92 09/29/16 02:00 75 09/29/16 00:00 98.6 74 16 125/65 98 09/29/16 00:00 74 09/28/16 22:00 104 09/28/16 20:09 94 Nasal Cannula 1.00 09/28/16 20:00 97.9 70 18 121/64 97 09/28/16 20:00 70 09/28/16 18:00 58 09/28/16 16:00 98.1 78 23 112/58 96 09/28/16 16:00 58 09/28/16 14:00 58 I/O 09/28/16 09/28/16 09/28/16 09/29/16 09/29/16 09/29/16 07:00 15:00 23:00 07:00 15:00 23:00 Intake Total 373 ml 830 ml 0 ml 480 ml Output Total 225 ml 300 ml 200 ml 200 ml Balance 148 ml 530 ml -200 ml 280 ml Intake Oral 500 ml 480 ml IV Total 373 ml 330 ml 0 ml Output Urine Total 225 ml 300 ml 200 ml 200 ml # Bowel Movements 0 1 1 Result Diagram: 09/28/16 0615 09/29/16 0540 Imaging Last Impressions Lower Extremity Ultrasound 09/25/16 1139 Signed Impressions: Service Date/Time: September 18:06 - CONCLUSION: Negative for deep venous thrombosis. Gideon Gifford MD FACR Renal Ultrasound 09/25/16 0000 Signed Impressions: Service Date/Time: September 18:24 - CONCLUSION: There is no hydronephrosis. Right kidney is small and echogenic. Large cyst in left kidney. Gideon Gifford MD FACR Chest X-Ray 09/25/16 0000 Signed Impressions: Service Date/Time: September 08:48 - CONCLUSION: Left basilar density and blunting of the left costophrenic angle concerning for pleural effusion, consolidation and/or atelectasis. Madelin Echeverria MD Other Results Laboratory Tests Test 09/28/16 09/29/16 17:55 05:40 Prothrombin Time 43.1 30.9 Prothromb Time International 3.7 2.7 Ratio Sodium Level 139 Potassium Level 3.8 Chloride Level 108 Carbon Dioxide Level 23.5 Anion Gap 8 Blood Urea Nitrogen 41 Creatinine 2.39 Estimat Glomerular Filtration 27 Rate Random Glucose 97 Calcium Level 7.4 Protein Corrected Calcium 8.4 Phosphorus Level 2.1 Magnesium Level 1.9 Total Protein 5.3 Digoxin Level 2.0 Date/Time Procedure Status Source Growth 09/25/16 08:20 Urine Culture - Final Complete Urine Catheterized Urine NO GROWTH IN 48 HOURS. Physical Exam Physical Exam GENERAL: This is a well-nourished, well-developed patient, in no apparent distress. SKIN: No rashes, ecchymoses or lesions. Cool and dry. HEAD: Atraumatic. Normocephalic. No temporal or scalp tenderness. EYES: Pupils equal round and reactive. Extraocular motions intact. No scleral icterus. No injection or drainage. ENT: Airway patent. NECK: Trachea midline. Supple, nontender, no meningeal signs. CARDIOVASCULAR: Regular rate and rhythm without murmurs, gallops, or rubs. RESPIRATORY: Diminished, coarse upper airway, cleared with coughing. Breath sounds equal bilaterally. GASTROINTESTINAL: Abdomen soft, mildly tender to RLQ. Nondistended. No hepato- splenomegaly, or palpable masses. No guarding. MUSCULOSKELETAL: Extremities without clubbing, cyanosis. Bilat pedal edema, trace, pedal pulses 1+. No joint tenderness, effusion, or edema noted. No calf tenderness. Negative Homans sign bilaterally. NEUROLOGICAL: Awake, oriented x 3. No focal deficits. Pleasant. A/P Assessment and Plan (1) RAVEN (acute kidney injury) (2) Dehydration, severe (3) Digoxin toxicity (4) Recurrent Clostridium difficile diarrhea (5) CAD (coronary artery disease) (6) History of atrial fibrillation (7) Anticoagulated on Coumadin Plan RAVEN secondary to diarrhea, severely dehydrated -Continue with IVF -Monitor I/O -BMP daily. Improving BUN/creatinine -Nephrology following, input appreciated -Avoid nephrotoxic agents, NSAIDs, diuretics Dig toxicity sec. RAVEN -Hold dig -Dig level daily, within normal limits -Heart rate stable. Rhythm on monitor with normal. And as per RN had very short run of V. tach last night Recurrent cdiff, + Epid 027 -DicContinue Flagyl -Continue Vancomycin 250 mg PO QID Hx afib, on coumadin -Telemetry monitoring -Hold coumadin, within normal limit INR. Pharmacy to manage Coumadin. PT/INR daily PT for eval and treatment Labs reviewed Low phosphorus plan for replacement Stable H&H Labs in am Plan of care discussed with patient, and RN. Patient is stable to be transferred to telemetry floor Further management of the patient will be dependent on the hospital course. Teri Vaqsuez MD Sep 29, 2016 13:58
[2016-09-29] MEDS ORDERED: POTASSIUM PHOSPHATE/SODIUM PHOSPHATE 250 MG TAB PO ONE (14:00)
[2016-09-29] MEDS: WARFARIN SOD 3 MG TAB PO SCH (15:14)
--- NOTE | 2016-09-29 16:25 | HHI.NPPN ---
Subjective General Problems: Edema Renal Failure: Acute Review of Systems General Constitutional: Fatigue Gastrointestinal Gastrointestinal: Diarrhea Objective Data Data 09/28/16 09/29/16 19:00 07:00 Intake Total 830 ml 480 ml Output Total 300 ml 400 ml Balance 530 ml 80 ml Intake Oral 500 ml 480 ml IV Total 330 ml 0 ml Output Urine Total 300 ml 400 ml # Bowel Movements 2 Vital Signs Date Time Temp Pulse Resp B/P Pulse Ox O2 Delivery O2 Flow Rate FiO2 09/29/16 14:00 113 09/29/16 12:00 113 09/29/16 12:00 98.1 95 20 110/66 96 09/29/16 08:50 95 Nasal Cannula 1.00 09/29/16 08:00 113 09/29/16 08:00 98.2 95 20 112/65 95 09/29/16 06:00 94 09/29/16 04:00 82 09/29/16 04:00 97.9 82 20 116/64 92 09/29/16 02:00 75 09/29/16 00:00 98.6 74 16 125/65 98 09/29/16 00:00 74 09/28/16 22:00 104 09/28/16 20:09 94 Nasal Cannula 1.00 09/28/16 20:00 97.9 70 18 121/64 97 09/28/16 20:00 70 09/28/16 18:00 58 -: 09/28/16 0615 09/29/16 0540 Physical Exam General Appearance: Well Developed, Well Nourished, No Acute Distress Eyes Eye Exam: Pupils Equal Throat Throat Exam: Oral Mucosa [place] & Moist Pulmonary Resp Exam: Clear Bilaterally, Breath Sounds Equal, No Distress Cardiology CV Exam: Good Perfusion, Irregular, Arrhythmia Gastrointestinal/Abdomen GI Exam: Soft, Non-Tender, Bowel Sounds Present, Positive Bowel Movement Musculoskeletal MS Exam: Joints Intact Integumentary Skin Exam: Clear, Warm, Dry, Intact Extremeties Extremities Exam: Pedal Pulses Palpable, Moderate Edema Neurologic Neuro Exam: Alert, Awake, Oriented, Speech Clear, Moving All Extremities Psychiatric Psych Exam: Appropriate Responses Assessment/Plan Discussed Condition With: Patient Assessment Summary: RAVEN/Acute Renal Failure, Dehydration Problem List: (1) RAVEN (acute kidney injury) Plan: small right kidney. large cyst Left he does demonstrate lower extremity edema,lower extremity duplex negative for DVT renal function is improving with IVF NS at 50 cc/hr,creatinine declined to 2.39 RAVEN thought to be due to prerenal etiology, dehydration from profuse diarrhea after antibiotic administration K is acceptable PO4 low KP04 given Dig 2 UA benign he does demonstrate lower extremity edema,lower extremity duplex negative for DVT monitor BMP (2) Digoxin toxicity Plan: monitor dig level, heart rate Increased, PVC Problem Qualifiers (1) Digoxin toxicity: Qualified Code: T46.0X1A - Digoxin toxicity, accidental or unintentional, initial encounter Soumya Drew MD Sep 29, 2016 16:25
[2016-09-29] MEDS: TAMSULOSIN HCL 0.4 MG CAP PO SCH (20:31)
[2016-09-29] MEDS: ATORVASTATIN 10 MG TAB PO SCH (20:31)
[2016-09-30] VITALS (9 sets, daily range): BP systolic 111–143; BP diastolic 58–66; PULSE 76–99; RESP 12–23; TEMP 97.5–98.6; O2SAT 90–99
[2016-09-30 06:21] LABS: INTERNATIONAL NORMALIZED RATIO 2.3 RATIO; PROTHROMBIN TIME - PATIENT 26.6 SEC (9.8-11.6)
[2016-09-30 06:33] LABS: BICARBONATE 23.6 MEQ/L (21.0-32.0); POTASSIUM 4.3 MEQ/L (3.5-5.1)
[2016-09-30] MEDS: SODIUM CHLORIDE 0.9% FLUSH 5 ML FLUSH IV FLUSH SCH ×2 (08:48→19:51)
[2016-09-30] MEDS: PANTOPRAZOLE SOD 20 MG DELAYED RELEASE TAB PO SCH (08:48)
[2016-09-30] MEDS: VANCOMYCIN 500 MG VIAL (FOR ORAL USE ONLY) PO SCH ×4 (08:49→19:51)
--- NOTE | 2016-09-30 11:21 | HHI.PR ---
Subjective Remarks sitting up in chair no cp no sob no fever tele, afib, HR 100s just had stool, loose but more formed no abd. pain tolerating diet well Objective Objective Results - Vital Signs Date Time Temp Pulse Resp B/P Pulse Ox O2 Delivery O2 Flow Rate FiO2 09/30/16 08:11 95 Nasal Cannula 2.00 09/30/16 08:00 97.9 95 21 129/62 90 09/30/16 04:00 83 09/30/16 04:00 98.2 83 16 143/63 94 09/30/16 00:00 97.9 99 17 141/65 98 09/30/16 00:00 99 09/29/16 20:00 98.1 113 30 158/92 96 09/29/16 20:00 113 09/29/16 19:39 99 Nasal Cannula 2.00 09/29/16 18:00 113 09/29/16 16:00 113 09/29/16 16:00 98.6 83 16 158/92 98 09/29/16 14:00 113 09/29/16 12:00 113 09/29/16 12:00 98.1 95 20 110/66 96 I/O 09/29/16 09/29/16 09/29/16 09/30/16 09/30/16 09/30/16 07:00 15:00 23:00 07:00 15:00 23:00 Intake Total 480 ml 560 ml 778 ml 90 ml Output Total 200 ml 550 ml 225 ml 600 ml Balance 280 ml 10 ml 553 ml -510 ml Intake Oral 480 ml 560 ml 700 ml 90 ml IV Total 78 ml Output Urine Total 200 ml 550 ml 225 ml 600 ml # Bowel Movements 1 1 1 Result Diagram: 09/28/16 0615 09/30/16 0530 Imaging Last Impressions Lower Extremity Ultrasound 09/25/16 1139 Signed Impressions: Service Date/Time: September 18:06 - CONCLUSION: Negative for deep venous thrombosis. Gideon Gifford MD FACR Renal Ultrasound 09/25/16 0000 Signed Impressions: Service Date/Time: September 18:24 - CONCLUSION: There is no hydronephrosis. Right kidney is small and echogenic. Large cyst in left kidney. Gideon Gifford MD FACR Chest X-Ray 09/25/16 0000 Signed Impressions: Service Date/Time: September 08:48 - CONCLUSION: Left basilar density and blunting of the left costophrenic angle concerning for pleural effusion, consolidation and/or atelectasis. 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 SKIN: No rashes, ecchymoses or lesions. Cool and dry. HEAD: Atraumatic. Normocephalic. No temporal or scalp tenderness. EYES: Pupils equal round and reactive. Extraocular motions intact. No scleral icterus. No injection or drainage. ENT: Airway patent. NECK: Trachea midline. Supple, nontender, no meningeal signs. CARDIOVASCULAR: Regular rate and rhythm without murmurs, gallops, or rubs. RESPIRATORY: Diminished, otherwise clear. GASTROINTESTINAL: Abdomen soft, nontender, nondistended. No hepato-splenomegaly , or palpable masses. No guarding. MUSCULOSKELETAL: Extremities without clubbing, cyanosis. Bilat pedal edema, trace, pedal pulses 1+. No joint tenderness, effusion, or edema noted. No calf tenderness. Negative Homans sign bilaterally. NEUROLOGICAL: Awake, oriented x 3. No focal deficits. Pleasant. Urinary Catheter: Yes Assessment to: Continue Lambert insert reason: Measure Accurate Output Vascular Central Line Catheter: No A/P Diagnosis: (1) RAVEN (acute kidney injury) (2) Dehydration, severe (3) Digoxin toxicity (4) Recurrent Clostridium difficile diarrhea (5) CAD (coronary artery disease) (6) History of atrial fibrillation (7) Anticoagulated on Coumadin Assessment and Plan RAVEN secondary to diarrhea, severely dehydrated -IVD d/cd -Monitor I/O -BMP daily. Improving BUN/creatinine -Nephrology following, input appreciated -Avoid nephrotoxic agents, NSAIDs, diuretics Dig toxicity sec. RAVEN -Hold dig -Dig level daily, within normal limits -Heart rate stable. Rhythm on monitor with normal. -Avoid dig due to renal function Recurrent cdiff, + Epid 027-improving, stools more formed -was on Flagyil, now d/c -Continue Vancomycin 250 mg PO QID Hx afib, on coumadin -Telemetry monitoring -INR 2.3, continue Coumadin PT for eval and treatment labs reviewed, stable CM for dc planning, C vs SNF, hopefully dc 2 days Patient is stable to be transferred to telemetry floor no beds Labs in am overall improving D/W RN D/W Dr. Feng D/W pt. This patient was seen by myself and Dr. Feng, this note is written on his behalf Problem Qualifiers (1) Digoxin toxicity: Qualified Code: T46.0X1A - Digoxin toxicity, accidental or unintentional, initial encounter (2) CAD (coronary artery disease): Qualified Code: I25.10 - Coronary artery disease involving [place] coronary artery of [place] heart without angina pectoris Gi Royal Sep 30, 2016 11:21
--- NOTE | 2016-09-30 13:29 | HHI.NPPN ---
Subjective General Problems: Edema Renal Failure: Acute Review of Systems General Constitutional: Fatigue Gastrointestinal Gastrointestinal: Diarrhea Objective Data Data 09/29/16 09/30/16 19:00 07:00 Intake Total 560 ml 868 ml Output Total 550 ml 825 ml Balance 10 ml 43 ml Intake Oral 560 ml 790 ml IV Total 78 ml Output Urine Total 550 ml 825 ml # Bowel Movements 1 1 Vital Signs Date Time Temp Pulse Resp B/P Pulse Ox O2 Delivery O2 Flow Rate FiO2 09/30/16 12:00 97.5 80 20 120/66 94 09/30/16 08:11 95 Nasal Cannula 2.00 09/30/16 08:00 97.9 95 21 129/62 90 09/30/16 04:00 83 09/30/16 04:00 98.2 83 16 143/63 94 09/30/16 00:00 97.9 99 17 141/65 98 09/30/16 00:00 99 09/29/16 20:00 98.1 113 30 158/92 96 09/29/16 20:00 113 09/29/16 19:39 99 Nasal Cannula 2.00 09/29/16 18:00 113 09/29/16 16:00 113 09/29/16 16:00 98.6 83 16 158/92 98 09/29/16 14:00 113 -: 09/28/16 0615 09/30/16 0530 Physical Exam General Appearance: Well Developed, Well Nourished, No Acute Distress Eyes Eye Exam: Pupils Equal Throat Throat Exam: Oral Mucosa [place] & Moist Pulmonary Resp Exam: Clear Bilaterally, Breath Sounds Equal, No Distress Cardiology CV Exam: Good Perfusion, Irregular, Arrhythmia Gastrointestinal/Abdomen GI Exam: Soft, Non-Tender, Bowel Sounds Present, Positive Bowel Movement Musculoskeletal MS Exam: Joints Intact Integumentary Skin Exam: Clear, Warm, Dry, Intact Extremeties Extremities Exam: Pedal Pulses Palpable, Moderate Edema Neurologic Neuro Exam: Alert, Awake, Oriented, Speech Clear, Moving All Extremities Psychiatric Psych Exam: Appropriate Responses Assessment/Plan Discussed Condition With: Patient Assessment Summary: RAVEN/Acute Renal Failure, Dehydration Problem List: (1) RAVEN (acute kidney injury) Plan: He has small right kidney and cyst Left renal function is improving with IVF NS at 50 cc/hr,creatinine declined to 2.31 RAVEN thought to be due to prerenal etiology, dehydration from profuse diarrhea after antibiotic administration K is acceptable monitor BMP (2) Digoxin toxicity Plan: monitor dig level, heart rate Increased, PVC Problem Qualifiers (1) Digoxin toxicity: Qualified Code: T46.0X1A - Digoxin toxicity, accidental or unintentional, initial encounter Soumya Drew MD Sep 30, 2016 13:29
[2016-09-30] MEDS: WARFARIN SOD 3 MG TAB PO SCH (18:10)
[2016-09-30] MEDS: SODIUM CHLOR 0.9% 1000 ML INJ 1,000 ML IV SCH (19:37)
[2016-09-30] MEDS: ATORVASTATIN 10 MG TAB PO SCH (19:50)
[2016-09-30] MEDS: TAMSULOSIN HCL 0.4 MG CAP PO SCH (19:50)
[2016-10-01] VITALS (9 sets, daily range): BP systolic 125–153; BP diastolic 61–108; PULSE 79–101; RESP 13–19; TEMP 97.6–98.3; O2SAT 95–100
[2016-10-01] MEDS: CHLORHEXIDINE GLUCONATE 2 % 1 PACK (2 CLOTHS) TOP SCH (04:00)
[2016-10-01 06:01] LABS: INTERNATIONAL NORMALIZED RATIO 2.1 RATIO; PROTHROMBIN TIME - PATIENT 23.4 SEC (9.8-11.6)
[2016-10-01 06:09] LABS: POTASSIUM 4.4 MEQ/L (3.5-5.1)
[2016-10-01] MEDS: PANTOPRAZOLE SOD 20 MG DELAYED RELEASE TAB PO SCH (09:05)
[2016-10-01] MEDS: VANCOMYCIN 500 MG VIAL (FOR ORAL USE ONLY) PO SCH ×3 (09:05→17:11)
[2016-10-01] MEDS: SODIUM CHLORIDE 0.9% FLUSH 5 ML FLUSH IV FLUSH SCH (09:06)
--- NOTE | 2016-10-01 10:45 | HHI.PR ---
Subjective Remarks sitting up in chair no cp no sob no fever tele, afib, HR 110s one stool more formed no abd. pain tolerating diet well agreeable with going to SNF Objective Objective Results - Vital Signs Date Time Temp Pulse Resp B/P Pulse Ox O2 Delivery O2 Flow Rate FiO2 10/01/16 08:00 89 10/01/16 08:00 98.1 89 19 133/63 97 10/01/16 07:34 97 Nasal Cannula 2.00 10/01/16 06:00 101 10/01/16 04:00 97.6 90 13 129/64 98 10/01/16 04:00 90 10/01/16 02:00 86 10/01/16 00:00 98.3 87 15 125/61 95 10/01/16 00:00 87 09/30/16 22:00 88 09/30/16 20:00 98.6 86 23 116/58 98 09/30/16 20:00 86 09/30/16 19:48 99 Nasal Cannula 2.00 09/30/16 16:00 76 09/30/16 16:00 97.8 78 12 111/58 98 09/30/16 12:00 97.5 80 20 120/66 94 I/O 09/30/16 09/30/16 09/30/16 10/01/16 10/01/16 10/01/16 07:00 15:00 23:00 07:00 15:00 23:00 Intake Total 90 ml 420 ml Output Total 600 ml 200 ml 275 ml 400 ml Balance -510 ml 220 ml -275 ml -400 ml Intake Oral 90 ml 420 ml Output Urine Total 600 ml 200 ml 275 ml 400 ml # Bowel Movements 1 Result Diagram: 09/28/16 0615 10/01/16 0353 Imaging Last Impressions Lower Extremity Ultrasound 09/25/16 1139 Signed Impressions: Service Date/Time: September 18:06 - CONCLUSION: Negative for deep venous thrombosis. Gideon Gifford MD FACR Renal Ultrasound 09/25/16 0000 Signed Impressions: Service Date/Time: September 18:24 - CONCLUSION: There is no hydronephrosis. Right kidney is small and echogenic. Large cyst in left kidney. Gideon Gifford MD FACR Chest X-Ray 09/25/16 0000 Signed Impressions: Service Date/Time: September 08:48 - CONCLUSION: Left basilar density and blunting of the left costophrenic angle concerning for pleural effusion, consolidation and/or atelectasis. Madelin Echeverria MD Other Results Laboratory Tests Test 10/01/16 03:53 Prothrombin Time 23.4 Prothromb Time International 2.1 Ratio Sodium Level 139 Potassium Level 4.4 Chloride Level 108 Carbon Dioxide Level 24.0 Anion Gap 7 Blood Urea Nitrogen 39 Creatinine 2.16 Estimat Glomerular Filtration 30 Rate Random Glucose 95 Calcium Level 7.5 ROS General: Weakness, No: Fatigue, Other HEENT: No: Sore Throat, Dysphagia Cardiac: No: Chest Pain, Edema, Palpitations Pulmonary: No: Cough, SOB, Wheezing GI: Diarrhea, No: Abdominal Pain, BM, N/V, Other /[employer]: No: Dysuria, Urgency Neuro/MS: No: Lightheaded, Confusion Psych: No: Anxiety, Depression Skin: No: Itching, Rash Physical Exam Physical Exam GENERAL: This is a well-nourished, well-developed patient, in no apparent distress. SKIN: No rashes, ecchymoses or lesions. Cool and dry. HEAD: Atraumatic. Normocephalic. No temporal or scalp tenderness. EYES: Pupils equal round and reactive. Extraocular motions intact. No scleral icterus. No injection or drainage. ENT: Airway patent. NECK: Trachea midline. Supple, nontender, no meningeal signs. CARDIOVASCULAR: Regular rate and rhythm without murmurs, gallops, or rubs. RESPIRATORY: Diminished, otherwise clear. GASTROINTESTINAL: Abdomen soft, nontender, nondistended. No hepato-splenomegaly , or palpable masses. No guarding. MUSCULOSKELETAL: Extremities without clubbing, cyanosis. Bilat pedal edema, trace, pedal pulses 1+. No joint tenderness, effusion, or edema noted. No calf tenderness. Negative Homans sign bilaterally. NEUROLOGICAL: Awake, oriented x 3. No focal deficits. Pleasant. Urinary Catheter: Yes Assessment to: Remove Vascular Central Line Catheter: No A/P Diagnosis: (1) RAVEN (acute kidney injury) (2) Dehydration, severe (3) Digoxin toxicity (4) Recurrent Clostridium difficile diarrhea (5) CAD (coronary artery disease) (6) History of atrial fibrillation (7) Anticoagulated on Coumadin Assessment and Plan RAVEN secondary to diarrhea, severely dehydrated -IVD d/cd -Monitor I/O -BMP daily. Improving BUN/creatinine -Nephrology following, input appreciated -Avoid nephrotoxic agents, NSAIDs, diuretics Dig toxicity sec. RAVEN -Hold dig -Dig level daily, within normal limits -Heart rate stable. Rhythm on monitor with normal. -Avoid dig due to renal function Recurrent cdiff, + Epid 027-improving, stools more formed -was on Flagyil, now d/c -Continue Vancomycin 250 mg PO QID Hx afib, on coumadin -Telemetry monitoring -INR 2.1, continue Coumadin -HR elevated, will start Lopressor 25 mg PO daily, give first dose now PT for eval and treatment labs reviewed, stable CM for dc planning, SNF, pt agreeable pt. stable for discharge to SNF renal fx improved, stools formed Discharge to SNF today F/U PCP Diet-heart healthy Activity-as tolerated D/W RN D/W Dr. Feng D/W pt. This patient was seen by myself and Dr. Feng, this note is written on his behalf Discharge Planning 45 minutes Problem Qualifiers (1) Digoxin toxicity: Qualified Code: T46.0X1A - Digoxin toxicity, accidental or unintentional, initial encounter (2) CAD (coronary artery disease): Qualified Code: I25.10 - Coronary artery disease involving [place] coronary artery of [place] heart without angina pectoris [facility] Royal Oct 01, 2016 10:45
[2016-10-01] MEDS ORDERED: IPRASOL INH (11:33)
[2016-10-01] MEDS ORDERED: VANC500I3 PO (11:33)
[2016-10-01] MEDS ORDERED: COUM3TAB PO (11:33)
--- NOTE | 2016-10-01 11:34 | HHI.DCPOC ---
Discharge Care Plan Diagnosis: (1) RAVEN (acute kidney injury) (2) CAD (coronary artery disease) (3) History of atrial fibrillation (4) Anticoagulated on Coumadin (5) Recurrent Clostridium difficile diarrhea (6) Digoxin toxicity (7) Dehydration, severe Your Health Problems Are: Anxiety Difficulty with ADL Irregular Bowel Function Goals to Promote Your Health * To prevent worsening of your condition and complications * To maintain your health at the optimal level Directions to Meet Your Goals Take your medications as prescribed Follow your dietary instruction Follow activity as directed Keep your appointments as scheduled Take your immunizations and boosters as scheduled If your symptoms worsen call your PCP, if no PCP go to Urgent Care Center or Emergency Room Smoking is Dangerous to Your Health. Avoid second hand smoke Call the 24-hour hour crisis hotline for domestic abuse at [facility] Oct 01, 2016 11:34
[2016-10-01] MEDS ORDERED: METO-309 PO (11:35)
[2016-10-01] MEDS ORDERED: METOPROLOL TARTRATE 25 MG TAB PO ONE (11:45)
[2016-10-01] MEDS: SODIUM CHLOR 0.9% 1000 ML INJ 1,000 ML IV SCH (14:37)
[2016-10-01] MEDS: WARFARIN SOD 3 MG TAB PO SCH (14:53)
--- NOTE | 2016-10-01 16:01 | HHI.DS ---
Discharge Summary Admission Date Sep 24, 2016 at 18:29 Discharge Date: Oct 01, 2016 Admitting Diagnosis renal failure, c diff colitis (1) RAVEN (acute kidney injury) (2) Dehydration, severe (3) Digoxin toxicity (4) Recurrent Clostridium difficile diarrhea (5) CAD (coronary artery disease) (6) History of atrial fibrillation (7) Anticoagulated on Coumadin CBC/BMP: 09/28/16 0615 10/01/16 0353 Significant Findings Laboratory Tests Test 09/28/16 09/29/16 09/30/16 10/01/16 17:55 05:40 05:30 03:53 Prothrombin Time 43.1 SEC 30.9 SEC 26.6 SEC 23.4 SEC (9.8-11.6) (9.8-11.6) (9.8-11.6) (9.8-11.6) Chloride Level 108 MEQ/L 109 MEQ/L 108 MEQ/L (98-107) (98-107) (98-107) Blood Urea Nitrogen 41 MG/DL (7-18) 38 MG/DL (7-18) 39 MG/DL (7-18) Creatinine 2.39 MG/DL 2.31 MG/DL 2.16 MG/DL (0.60-1.30) (0.60-1.30) (0.60-1.30) Estimat Glomerular Filtration 27 ML/MIN (>89) 28 ML/MIN (>89) 30 ML/MIN (>89) Rate Calcium Level 7.4 MG/DL 7.6 MG/DL 7.5 MG/DL (8.5-10.1) (8.5-10.1) (8.5-10.1) Protein Corrected Calcium 8.4 MG/DL (8.5-10.1) Phosphorus Level 2.1 MG/DL (2.5-4.9) Total Protein 5.3 GM/DL (6.4-8.2) Imaging Last Impressions Lower Extremity Ultrasound 09/25/16 1139 Signed Impressions: Service Date/Time: September 18:06 - CONCLUSION: Negative for deep venous thrombosis. Gideon Gifford MD FACR Renal Ultrasound 09/25/16 0000 Signed Impressions: Service Date/Time: September 18:24 - CONCLUSION: There is no hydronephrosis. Right kidney is small and echogenic. Large cyst in left kidney. Gideon Gifford MD FACR Chest X-Ray 09/25/16 0000 Signed Impressions: Service Date/Time: September 08:48 - CONCLUSION: Left basilar density and blunting of the left costophrenic angle concerning for pleural effusion, consolidation and/or atelectasis. Madelin Echeverria MD Hospital Course This is 76 y/o man who developed C. diff colitis after an antibiotic course for left arm cellulitis and had been recently discharged on 07/28/2016 on Flagy. Pt. presented to ED on 09/24 with profuse diarrhea. During evaluation, pt. was found in RAVEN, Creat 4.0, and severe dehydration. Complained that his tongue was stuck to the top of his mouth, was hypotensive on arrival. Pt. initially seen in [facility] facility was transferred to [facility] and was admitte to [facility]. Pt. was evaluated by nephrology, put on IVF. Creatinine improving slowly. Initial stool negative for cdiff however a second stool sample was sent and came back positive for Cdiff Epid 027. Pt. was on Flagyl. Digoxin level was elevated. Dig held. HR initially 60s. INR was therapeutic. Pt. was hemodynamically stable, SR on monitor. Continued to have loose stools. Had mild tenderness to RLQ, no fever. No CP, no SOB. Had bilateral leg swelling, US negative for DVT. Hospitalist services requested to assume care from critical care. Admitted for: (1) RAVEN (acute kidney injury) (2) Dehydration, severe (3) Digoxin toxicity (4) Recurrent Clostridium difficile diarrhea (5) CAD (coronary artery disease) (6) History of atrial fibrillation (7) Anticoagulated on Coumadin During course of hospitalization, the following took place: RAVEN secondary to diarrhea, severely dehydrated-improved, pt. making urine. -IV given -Monitored I/O -BMP checked daily. Improving BUN/creatinine -Nephrology following, input appreciated -Avoided nephrotoxic agents, NSAIDs, diuretics. Dig toxicity sec. RAVEN -Hedld dig -Dig level daily, came down to normal -Heart rate stable. -Avoided dig due to renal function Recurrent cdiff, + Epid 027-improving, stools became more formed -was on Flagyil, which was discontinued -Started on Vancomycin 250 mg PO QID Hx afib, on coumadin -Telemetry monitoring -INR 2.1, continued Coumadin -HR became elevated, started on Lopressor 25 mg PO daily. Dig discontinued. PT for eval and treatment,pt. mobilized out of bed. Was weak, rehab recommended labs reviewed, stable as pt. improved. CM for dc planning, SNF, pt and family agreeable pt. stable for discharge to SNF renal fx improved, stools formed Discharge to SNF and instructed to: F/U PCP Diet-heart healthy Activity-as tolerated Pt Condition on Discharge: Stable Discharge Disposition: Discharge to SNF Discharge Instructions DIET: Follow Instructions for: Heart Healthy Diet Fluid Restrictions: none Activities you can perform: Regular-No Restrictions Other Activity Instructions: fall precautions Follow up Referrals: PCP Follow-up New Medications: Metoprolol Tartrate (Lopressor) 50 Mg Tab 25 MG PO DAILY FIB #30 Ref 0 TAB Ipratropium-Albuterol Neb (Duoneb) 0.5-2.5 Mg/3 Ml Neb 1 AMPULE INH Q4HR NEB PRN WHEEZING #30 ML Vancomycin Inj (Vancomycin Inj) 500 Mg Inj 250 MG PO QID Diarrhea #56 Ref 0 INJECTION Warfarin (Coumadin) 3 Mg Tab 3 MG PO DAILY@16 AFIB #30 TAB Continued Medications: Atorvastatin (Atorvastatin) 10 Mg Tab 10 MG PO HS Cholesterol Management #30 Ref 0 TAB Lactobacillus Acidophilus (Probiotic) 1 Cap Cap 1 CAP PO TIDAC Nutritional Supplement #90 Ref 0 CAP Multiple Vitamins W/ Minerals (Multivitamin Men) 1 Tab Tab 1 TAB PO DAILY Nutritional Supplement Ref 0 TAB Omeprazole (Omeprazole) 20 Mg Tab 20 MG PO DAILY #30 Ref 0 TAB Tamsulosin (Tamsulosin) 0.4 Mg Cap 0.4 MG PO HS Manage Prostate Problems #30 Ref 0 CAP Discontinued Medications: Bismuth Subsalicylate Liq (Pepto-Bismol Liq) 262 Mg/15 Ml Susp 30 ML PO Do not exceed 8 doses (240 mL or 16 tbsp) in 24 hours. PRN INDIGESTION OR UPSET STOMACH #1 Ref 0 BOTTLE Digoxin (Digoxin) 0.25 Mg Tab 0.25 MG PO DAILY Regulate Heart Beat #30 Ref 0 TAB Metronidazole (Flagyl) 500 Mg Tab 500 MG PO TID Infection Ref 0 TAB Warfarin (Warfarin) 4 Mg Tab 4 MG PO DAILY Blood Clot Prevention #30 Ref 0 TAB Gi Royal Oct 01, 2016 16:01
[2016-12-18] MEDS ORDERED: QUES4POW2 PO (17:12)
[2016-12-18] MEDS ORDERED: REME30TA PO (17:12)
[2016-12-18] MEDS ORDERED: METR500T10 PO (17:12)
[2016-12-18] MEDS ORDERED: DIGO0.12 PO (17:12)
[2016-12-18] MEDS ORDERED: ACET325T PO (17:12)
[2016-12-18] MEDS ORDERED: TRAZ50TA12 PO (17:12)
[2016-12-18] MEDS ORDERED: VANC250C2 PO (17:12)
== END 2016-10-01 17:30 | DRG 683 ==
LOC: PHED 16:13 → PHEDA 18:29 → HIME 23:15
PROVIDERS: ADMIT Surgery Surgical Critical Care; ATTEND Surgery Surgical Critical Care
DX: N17.0 Acute kidney failure with tubular necrosis (principal); A04.7 Enterocolitis due to Clostridium difficile; L89.319 Pressure ulcer of right buttock, unspecified stage; I47.2 Ventricular tachycardia; E46 Unspecified protein-calorie malnutrition; I13.0 Hypertensive heart and chronic kidney disease with heart failure and stage 1 through stage 4 chronic kidney disease, or unspecified chronic kidney disease; I50.9 Heart failure, unspecified; I95.9 Hypotension, unspecified; R62.7 Adult failure to thrive; I48.91 Unspecified atrial fibrillation; E86.0 Dehydration; T46.0X5A Adverse effect of cardiac-stimulant glycosides and drugs of similar action, initial encounter; H91.90 Unspecified hearing loss, unspecified ear; I25.10 Atherosclerotic heart disease of native coronary artery without angina pectoris; J45.909 Unspecified asthma, uncomplicated; E78.5 Hyperlipidemia, unspecified; N18.9 Chronic kidney disease, unspecified; I49.3 Ventricular premature depolarization; Z68.26 Body mass index [BMI] 26.0-26.9, adult; Z79.01 Long term (current) use of anticoagulants; Z87.891 Personal history of nicotine dependence; Z95.5 Presence of coronary angioplasty implant and graft
CPT/HCPCS: 71010; 76775; 76937; 80048; 80053; 80162; 81001; 83605; 83735; 84100; 84155; 85025; 85027; 85610; 87086; 87493; 87641; 93005; 93970; 96360; J3475; J7030

== ENCOUNTER 2016-10-13 21:30 | Inpatient (IN) | payer MEDICARE, MEDICAID ==
[~2016-10-13] VITALS: Ht 180.3 cm; Wt 92.0 kg
[~2016-10-13 21:30] MED LIST changes: +ATOR10TA15 PO; +COUM3TAB PO; -COUM4TAB PO; -DIGO0.25 PO; -FURO40TA PO; +IPRASOL INH; +LACTCAP8 PO; -LIPI10TA PO; +METO-309 PO; +MULT1TAB85 PO
[2016-10-13 21:35] VITALS: BP 102/58; PULSE 118; RESP 18; TEMP 98.6; O2SAT 96
--- NOTE | 2016-10-13 21:46 | PD ---
HPI Chief Complaint: WEAKNESS Time Seen by Provider: 21:46 Travel History International Travel<30 days: No Contact w/Intl Traveler<30days: No Traveled to known affect area: No History of Present Illness HPI 76-year-old male coming in via EMS from [facility] facility with complaints of generalized weakness for the past week. Patient was recently admitted for renal failure and recurrent C. difficile diarrhea. Patient has a history of atrial fibrillation. Patient is on Coumadin and digoxin for this.. Patient has a history of pressure sores on his buttocks in the past. Patient denies fever, chills, shortness of breath, chest pain, cough, or wheezing. Patient denies abdominal pain or change in urination. He does state he still has diarrhea. Patient states his appetite is not great, but denies nausea or vomiting. Patient is noted to have superficial open blisters to both lower extremities which are well documented in the [facility] record. Patient is currently on vancomycin for his C. difficile. Patient is not the greatest historian. He has no known drug allergies. PFSH Past Medical History Hx Anticoagulant Therapy: Yes (POSSIBLY) Arthritis: No Asthma: Yes Atrial Fibrillation: Yes Autoimmune Disease: No Blood Disorders: No Anxiety: No Depression: No Heart Rhythm Problems: Yes Cancer: No Cardiac Catheterization: Yes Cardiovascular Problems: Yes (HTN) High Cholesterol: No Chemotherapy: No Chest Pain: Yes Congestive Heart Failure: Yes COPD: No Cerebrovascular Accident: No Coronary Artery Disease: Yes Diabetes: No Diminished Hearing: Yes Endocrine: No GERD: Yes Glaucoma: No Genitourinary: No Headaches: Yes Hepatitis: No Hiatal Hernia: No Hypertension: Yes Immune Disorder: Yes Kidney Stones: No Musculoskeletal: Yes (steroid injections with tens years ago) Neurologic: No Psychiatric: No Respiratory: No Immunizations Current: Yes Myocardial Infarction: No Radiation Therapy: No Renal Failure: Yes Sickle Cell Disease: No Sleep Apnea: No Thyroid Disease: No Ulcer: No Past Surgical History Abdominal Surgery: No AICD: No Cardiac Surgery: No Coronary Stent: Yes (x2) Ear Surgery: No Endocrine Surgery: No Eye Surgery: No Genitourinary Surgery: No Gynecologic Surgery: No Oral Surgery: No Pacemaker: No Thoracic Surgery: No Social History Alcohol Use: No Tobacco Use: No (QUIT 1998) Substance Use: No Allergies-Medications (Allergen,Severity, Reaction): Coded Allergies: No Known Allergies (Verified , 10/13/16) Reported Meds & Prescriptions Reported Meds & Active Scripts Active Lopressor (Metoprolol Tartrate) 50 Mg Tab 25 Mg PO DAILY Vancomycin Inj (Vancomycin HCl) 500 Mg Inj 250 Mg PO QID Duoneb (Ipratropium-Albuterol Neb) 0.5-2.5 Mg/3 Ml Neb 1 Ampule INH Q4HR NEB PRN Coumadin (Warfarin) 3 Mg Tab 3 Mg PO DAILY@16 Reported Atorvastatin (Atorvastatin Calcium) 10 Mg Tab 10 Mg PO HS Omeprazole 20 Mg Tab 20 Mg PO DAILY Probiotic (Lactobacillus Acidophilus) 1 Cap Cap 1 Cap PO TIDAC Tamsulosin (Tamsulosin HCl) 0.4 Mg Cap 0.4 Mg PO HS Multivitamin Men (Multiple Vitamins W/ Minerals) 1 Tab Tab 1 Tab PO DAILY Review of Systems ROS Limitations: Poor Historian General / Constitutional: No: Fever Eyes: No: Visual changes HENT: No: Headaches Cardiovascular: No: Chest Pain or Discomfort Respiratory: No: Shortness of Breath Gastrointestinal: No: Abdominal Pain Genitourinary: No: Dysuria Musculoskeletal: No: Pain Skin: No Rash Neurologic: No: Weakness Psychiatric: No: Depression Endocrine: No: Polydipsia Hematologic/Lymphatic: No: Easy Bruising Physical Exam Narrative GENERAL: Patient appears in no acute distress. SKIN: Warm and dry. Poor color. Poor turgor. With tenting apparent. Patient has superficial open blisters to both lower extremities consistent with possible reaction to medication in the last 2 weeks as documented in previous record. HEAD: Atraumatic. Normocephalic. EYES: Pupils equal and round. No scleral icterus. No injection or drainage. ENT: No nasal bleeding or discharge. Mucous membranes pink and dry. Pharynx is clear. Airway is patent. NECK: Trachea midline. No JVD. Supple and nontender. CARDIOVASCULAR: Tachycardic rate in the 130s and irregular rhythm. RESPIRATORY: No accessory muscle use. Clear to auscultation. Breath sounds equal bilaterally. GASTROINTESTINAL: Abdomen soft, non-tender, nondistended. Hepatic and splenic margins not palpable. MUSCULOSKELETAL: Extremities without clubbing, cyanosis, or edema. No obvious deformities. NEUROLOGICAL: Awake and alert. No obvious cranial nerve deficits. Motor grossly within normal limits. Five out of 5 muscle strength in the arms and legs. Normal speech. PSYCHIATRIC: Appropriate mood and affect; insight and judgment normal. Data Data Last Documented VS Vital Signs Date Time Temp Pulse Resp B/P Pulse Ox O2 Delivery O2 Flow Rate FiO2 10/13/16 21:55 18 93 Room Air 10/13/16 21:55 128 102/58 138 104/61 10/13/16 21:35 98.6 Orders Electrocardiogram (10/13/16 21:46) Complete Blood Count With Diff (10/13/16 21:46) Comprehensive Metabolic Panel (10/13/16 21:46) Magnesium (Mg) (10/13/16 21:46) B-Type Natriuretic Peptide (10/13/16 21:46) Ckmb (Isoenzyme) Profile (10/13/16 21:46) Troponin I (10/13/16 21:46) Act Partial Throm Time (Ptt) (10/13/16 21:46) Prothrombin Time / Inr (Pt) (10/13/16 21:46) Urinalysis - C+S If Indicated (10/13/16 21:46) Ecg Monitoring (10/13/16 21:46) Iv Access Insert/Monitor (10/13/16 21:46) Oximetry (10/13/16 21:46) Sodium Chloride 0.9% Flush (Ns Flush) (10/13/16 22:00) Orthostatic Vital Signs (10/13/16 21:46) Sodium Chlorid 0.9% 500 Ml Inj (Ns 500 M (10/13/16 22:00) Chest, Single Ap (10/13/16 21:46) Diltiazem Inj (Cardizem Inj) (10/13/16 22:15) Diltiazem Inj (Cardizem Inj) (10/13/16 22:15) Sodium Chloride 0.9% Flush (Ns Flush) (10/13/16 22:15) Digoxin (10/13/16 22:00) Labs Laboratory Tests Test 10/13/16 22:00 White Blood Count 11.7 TH/MM3 Red Blood Count 2.80 MIL/MM3 Hemoglobin 8.4 GM/DL Hematocrit 24.7 % Mean Corpuscular Volume 88.4 FL Mean Corpuscular Hemoglobin 30.2 PG Mean Corpuscular Hemoglobin 34.1 % Concent Red Cell Distribution Width 17.5 % Platelet Count 324 TH/MM3 Mean Platelet Volume 8.8 FL Neutrophils (%) (Auto) 93.3 % Lymphocytes (%) (Auto) 3.8 % Monocytes (%) (Auto) 2.5 % Eosinophils (%) (Auto) 0.2 % Basophils (%) (Auto) 0.2 % Neutrophils # (Auto) 10.9 TH/MM3 Lymphocytes # (Auto) 0.4 TH/MM3 Monocytes # (Auto) 0.3 TH/MM3 Eosinophils # (Auto) 0.0 TH/MM3 Basophils # (Auto) 0.0 TH/MM3 CBC Comment DIFF FINAL Differential Comment MDM Medical Decision Making Medical Screen Exam Complete: Yes Emergency Medical Condition: Yes Differential Diagnosis Dehydration. Electrolyte imbalance. Cardiac syndrome. Atrial fibrillation with RVR. Renal failure. Narrative Course Patient is found to be tachycardic although appears medically stable at time of exam. Labs ordered including CBC, CMP, cardiac panel, pro-BMP, digoxin level, urinalysis. Chest x-ray is ordered. IV access is obtained patient is given a 500 mL normal saline bolus. Patient is discussed with Dr. Alvarez sees the patient as well. EKG is ordered. Dr. Alvarez orders diltiazem for his rate. 2300 hrs. patient remained stable, and heart rate is slowly coming down into the 115-120. Labs are still pending. Patient care is turned over to Dr. Alvarez for final disposition. Condition: Stable Francois Boyer Oct 13, 2016 21:46
[2016-10-13 21:55] VITALS: BP_SYST 102; BP_SYST 104; BP_DIAS 58; BP_DIAS 61; RESP 18; RESP 20; O2SAT 93
[2016-10-13] MEDS ORDERED: SODIUM CHLORID 0.9% 500 ML INJ 500 ML IV ONE (22:00)
[2016-10-13] MEDS ORDERED: SODIUM CHLORIDE 0.9% FLUSH 5 ML FLUSH IVF PRN ×2 (22:00→22:15)
[2016-10-13] MEDS ORDERED: DILTIAZEM HCL 25 MG/5 ML VIAL IV PUSH ONE (22:15)
--- NOTE | 2016-10-13 22:45 | RADRPT ---
EXAM DATE/TIME: 10/13/2016 22:02 [place] COMPARISON: CHEST SINGLE AP, September 25, 2016, 8:48. INDICATIONS : Short of breath. MEDICAL HISTORY : Hypertension. Gastroesophageal reflux disease. Congestive heart failure. Coronary artery disease. Atrial fibrillation. Dyspnea. Renal failure. Clostridium difficile, 07/23/16. SURGICAL HISTORY : Cardiac catheterization. Coronary stent. ENCOUNTER: Initial ACUITY: 1 day PAIN SCORE: 0/10 LOCATION: Bilateral chest FINDINGS: A single view of the chest demonstrates mild basilar airspace disease. Small effusions. No pneumothor ax. Heart size within normal limits. CONCLUSION: 1. Mild basilar airspace disease. No pneumothorax. Philip Tanner MD on October 13, 2016 at 22:43 Board Certified Radiologist. This report was verified electronically.
[2016-10-13 22:50] LABS: AUTOMATED NEUTROPHIL # 10.9 TH/MM3 (1.8-7.7); BASOPHIL % 0.2 % (0.0-2.0); EOSINOPHIL % 0.2 % (0.0-4.0); HEMATOCRIT 24.7 % (39.0-51.0); HEMO FLAGS DIFF FINAL; LYMPH % 3.8 % (9.0-44.0); LYMPHOCYTE # 0.4 TH/MM3 (1.0-4.8); MEAN CELL VOLUME 88.4 FL (80.0-100.0); MEAN CORPUSCULAR HEMOGLOBIN 30.2 PG (27.0-34.0); MEAN CORPUSCULAR HGB CONC 34.1 % (32.0-36.0); MONO % 2.5 % (0.0-8.0); NEUT % 93.3 % (16.0-70.0); PLATELET COUNT 324 TH/MM3 (150-450); RED CELL DISTRIBUTION WIDTH 17.5 % (11.6-17.2); WHITE BLOOD COUNT 11.7 TH/MM3 (4.0-11.0)
[2016-10-13] MEDS: DILTIAZEM INJ 125 MG in SODIUM CHLORIDE 0.9% INJ 100 ML IV SCH (22:52)
[2016-10-13 23:00] VITALS: BP 108/61; PULSE 128; RESP 28; O2SAT 98
[2016-10-13 23:03] LABS: BACTERIA, URINE FEW /hpf; BLOOD, URINE TRACE (NEG); COMMENT (UR) CULTURE INDICATED; CULTURE IF INDICATED CULTURE INDICATED; GLUCOSE,URINE NEG (NEG); HYALINE CAST, URINE 3 /lpf (RARE); KETONE, URINE NEG (NEG); NITRITE,URINE POS (NEG); SQUAMOUS EPITHELIAL CELL URINE 2 /hpf (0-5); URINE COLOR YELLOW (YELLW/STRAW)
[2016-10-13 23:10] LABS: ANION GAP 7 MEQ/L (5-15); AST (GOT) 58 U/L (15-37); BICARBONATE 24.6 MEQ/L (21.0-32.0); BLOOD UREA NITROGEN 60 MG/DL (7-18); CHLORIDE 97 MEQ/L (98-107); GLOMERULAR FILTRATION RATE 14 ML/MIN (>89); MAGNESIUM 1.3 MG/DL (1.5-2.5); POTASSIUM 6.1 MEQ/L (3.5-5.1); SODIUM (NA) 129 MEQ/L (136-145)
[2016-10-13] MEDS ORDERED: DEXTROSE 50% IN WATER 50 ML VIAL(D50) IV PUSH ONE (23:15)
[2016-10-13] MEDS ORDERED: CALCIUM GLUCONATE INJ 1 GM in DEXTROSE 5% IN WATER 100ML INJ 100 ML IV ONE ×2 (23:15)
[2016-10-13] MEDS ORDERED: SODIUM BICARBONATE 8.4% INJ 50 MEQ/50 ML SYR IV PUSH ONE (23:15)
[2016-10-13] MEDS ORDERED: SODIUM CHLOR 0.9% 1000 ML INJ 1,000 ML IV ONE (23:15)
[2016-10-13] MEDS ORDERED: INSULIN HUMAN REGULAR 1,000 UNITS/10 ML VIAL IV PUSH ONE (23:15)
[2016-10-13] MEDS ORDERED: MAGNESIUM SULFATE 1 GM PREMIX 100 ML IV ONE (23:15)
--- NOTE | 2016-10-13 23:23 | PD ---
Physical Exam Date Seen by Provider: Oct 13, 2016 Time Seen by Provider: 23:10 Narrative Accepted in transfer of care GENERAL: Well developed well-nourished male in no acute distress no respiratory distress GCS 15 SKIN: Warm and dry. Multiple blistering lesions and tach and interrupted over the lower extremities few areas of erythema and decubiti to the buttock HEAD: Normocephalic. EYES: No scleral icterus. No injection or drainage. NECK: Supple, trachea midline. No JVD or lymphadenopathy. CARDIOVASCULAR: Increased Regular rate and rhythm without murmurs, gallops, or rubs. RESPIRATORY: Breath sounds equal bilaterally. No accessory muscle use. GASTROINTESTINAL: Abdomen soft, non-tender, nondistended. MUSCULOSKELETAL: No cyanosis, or edema. BACK: Nontender without obvious deformity. No CVA tenderness. Data Data Last Documented VS Vital Signs Date Time Temp Pulse Resp B/P Pulse Ox O2 Delivery O2 Flow Rate FiO2 10/13/16 23:00 128 24 99 Nasal Cannula 2 10/13/16 23:00 108/61 10/13/16 21:35 98.6 Orders Electrocardiogram (10/13/16 21:46) Complete Blood Count With Diff (10/13/16 21:46) Comprehensive Metabolic Panel (10/13/16 21:46) Magnesium (Mg) (10/13/16 21:46) B-Type Natriuretic Peptide (10/13/16 21:46) Ckmb (Isoenzyme) Profile (10/13/16 21:46) Troponin I (10/13/16 21:46) Act Partial Throm Time (Ptt) (10/13/16 21:46) Prothrombin Time / Inr (Pt) (10/13/16 21:46) Urinalysis - C+S If Indicated (10/13/16 21:46) Ecg Monitoring (10/13/16 21:46) Iv Access Insert/Monitor (10/13/16 21:46) Oximetry (10/13/16 21:46) Sodium Chloride 0.9% Flush (Ns Flush) (10/13/16 22:00) Orthostatic Vital Signs (10/13/16 21:46) Sodium Chlorid 0.9% 500 Ml Inj (Ns 500 M (10/13/16 22:00) Chest, Single Ap (10/13/16 21:46) Diltiazem Inj (Cardizem Inj) (10/13/16 22:15) Diltiazem Inj (Cardizem Inj) (10/13/16 22:15) Sodium Chloride 0.9% Flush (Ns Flush) (10/13/16 22:15) Digoxin (10/13/16 22:00) Urine Culture (10/13/16 21:35) Lactic Acid (10/13/16 23:13) Sodium Chlor 0.9% 1000 Ml Inj (Ns 1000 M (10/13/16 23:15) Calcium Gluconate Inj (Calcium Gluconate (10/13/16 23:15) Sodium Bicarbonate 8.4% Inj (Sodium Bica (10/13/16 23:15) Insulin Human Regular Inj (Novolin R Inj (10/13/16 23:15) Dextrose 50% In [place] (Vial) Inj (D50w (Vi (10/13/16 23:15) Blood Glucose (10/13/16 23:13) Protein Corrected Calcium(Pcc) (10/13/16 23:13) Magnesium Sulfate 1 Gm Premix (Magnesium (10/13/16 23:15) Blood Culture (10/13/16 23:36) Piperacil-Tazo 3.375 Gm Premix (Zosyn 3. (10/13/16 23:45) Admit Order (Ed Use Only) (10/13/16 ) ^ Saline Lock (10/13/16 23:50) Resp Oxygen Babatunde C Titrat 1-4 L (10/13/16 ) ^ Notify Dr: Other (10/13/16 23:50) Sodium Chloride 0.9% Flush (Ns Flush) (10/14/16 09:00) Sodium Chloride 0.9% Flush (Ns Flush) (10/14/16 00:00) Labs Laboratory Tests Test 10/13/16 10/13/16 21:35 22:00 Urine Color YELLOW Urine Turbidity CLOUDY Urine pH 6.0 Urine Specific [place] 1.011 Urine Protein TRACE mg/dL Urine Glucose (UA) NEG mg/dL Urine Ketones NEG mg/dL Urine Occult Blood TRACE Urine Nitrite POS Urine Bilirubin NEG Urine Urobilinogen LESS THAN 2.0 MG/DL Urine Leukocyte Esterase LARGE Urine RBC 14 /hpf Urine WBC /hpf Urine WBC Clumps MANY Urine Squamous Epithelial 2 /hpf Cells Urine Bacteria FEW /hpf Urine Hyaline Casts 3 /lpf Microscopic Urinalysis Comment CULTURE INDICATED White Blood Count 11.7 TH/MM3 Red Blood Count 2.80 MIL/MM3 Hemoglobin 8.4 GM/DL Hematocrit 24.7 % Mean Corpuscular Volume 88.4 FL Mean Corpuscular Hemoglobin 30.2 PG Mean Corpuscular Hemoglobin 34.1 % Concent Red Cell Distribution Width 17.5 % Platelet Count 324 TH/MM3 Mean Platelet Volume 8.8 FL Neutrophils (%) (Auto) 93.3 % Lymphocytes (%) (Auto) 3.8 % Monocytes (%) (Auto) 2.5 % Eosinophils (%) (Auto) 0.2 % Basophils (%) (Auto) 0.2 % Neutrophils # (Auto) 10.9 TH/MM3 Lymphocytes # (Auto) 0.4 TH/MM3 Monocytes # (Auto) 0.3 TH/MM3 Eosinophils # (Auto) 0.0 TH/MM3 Basophils # (Auto) 0.0 TH/MM3 CBC Comment DIFF FINAL Differential Comment Prothrombin Time 38.3 SEC Prothromb Time International 3.3 RATIO Ratio Activated Partial 42.5 SEC Thromboplast Time Sodium Level 129 MEQ/L Potassium Level 6.1 MEQ/L Chloride Level 97 MEQ/L Carbon Dioxide Level 24.6 MEQ/L Anion Gap 7 MEQ/L Blood Urea Nitrogen 60 MG/DL Creatinine 4.27 MG/DL Estimat Glomerular Filtration 14 ML/MIN Rate Random Glucose 99 MG/DL Calcium Level 7.5 MG/DL Magnesium Level 1.3 MG/DL Total Bilirubin 0.6 MG/DL Aspartate Amino Transf 58 U/L (AST/SGOT) Alanine Aminotransferase 95 U/L (ALT/SGPT) Alkaline Phosphatase 270 U/L Total Creatine Kinase 23 U/L Troponin I 0.02 NG/ML B-Type Natriuretic Peptide 185 PG/ML Total Protein 5.6 GM/DL Albumin 1.4 GM/DL Digoxin Level 0.7 NG/ML [facility] Medical Record Reviewed: Yes Supervised Visit with OMEGA: Yes Interpretation(s) CBC & BMP Diagram 10/13/16 22:00 Last Impressions Chest X-Ray 10/13/168 Signed Impressions: Service Date/Time: Thursday, October 13, 2016 22:02 - CONCLUSION: 1. Mild basilar airspace disease. No pneumothorax. Philip Tanner MD Differential Diagnosis Accepted in transfer of care; atrial fibrillation with rapid ventricular response, electrolyte disturbance, dehydration, renal insufficiency, sepsis, UTI /urosepsis, pneumonia, cellulitis, bullous cellulitis; also to consider TEN no evidence for Rosado-Chris syndrome at this time Narrative Course Accepted in transfer of care; patient with atrial fibrillation by history presents with atrial fibrillation with rapid ventricular response as well as generalized weakness identified by urinalysis to have abnormal urine presently is receiving vancomycin for enterocolitis and multiple bullous lesions of the skin. Patient is identified by a available labs do have mild leukocytosis with left shift lactic acid level is pending; acute recurrent renal insufficiency with creatinine of 4.27 and BUN of 60 however also is identified to have hyperkalemia of 6.1. Patient with abnormal urinalysis with positive nitrites positive leukocyte Estrace positive white blood cells clumped white blood cells and bacteria with culture indicated. Blood cultures obtained. 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 Patient remains in atrial fibrillation with RVR on Cardizem infusion with a rate of 120-140 and lower limit of normal range blood pressure after IV fluid bolus. Patient will need to be admitted to ICU for ongoing management of arrhythmia a lecture light disturbance probable urosepsis and possible recurrent digoxin toxicity. Last admission was 09/24/16 with associated digitoxicity and acute renal insufficiency /failure. @ 0500 sudden deterioration with tachycardia hypotension dysopnea and chills gcs15; stat cxr, bnp, bmp, trop, temperature, abg, and increased o2 supplementation repat temp >101F tylenol administered; repat bmp --ongoing hyperkalemia -- additional calium gluconate NaHCO3 and d50 insulin administered; case discussed with stranding machine operator Critical Care Narrative Aggregate critical care time was 60 minutes. Time to perform other separately billable procedures was not included in the critical care time. My time did not include minutes spent treating any other patients simultaneously or on activities that did not directly contribute to the patient's treatment. The services I provided to this patient were to treat and/or prevent clinically significant deterioration that could result in: Septic shock cardiogenic shock respiratory failure I provided critical care services requiring my management, as noted below: Chart data review, documentation time, medication orders and management, vital sign assessments/reviewing monitor data, ordering and reviewing lab tests, ordering and interpreting/reviewing x-rays and diagnostic studies, care of the patient and discussion of the patient with the admitting physicians. Sepsis Criteria SIRS Criteria (2 or more): Heart rate over 90 Physician Communication Physician Communication discussed with Dr Nayak --request patient admit to medicine to ICU; discussed with service [place] Cali PA-C for Dr Delgado ----admit to the ICU; discussed with Dr Nayak for stranding machine operator consultation; discussed with Dr Callahan known to the patient will see him in consultation this AM Diagnosis Primary Impression: UTI (urinary tract infection) Qualified Code: T83.511A - Urinary tract infection associated with indwelling urethral catheter, initial encounter Additional Impressions: Atrial fibrillation with RVR Hyperkalemia RAVEN (acute kidney injury) Anticoagulated on Coumadin Anemia Cellulitis Qualified Code: L03.119 - Cellulitis of lower extremity, unspecified laterality Pressure sore on buttocks Bullous dermatosis Severe sepsis Admitting Information Admitting Physician Requests: Admit Condition: Stable Karlee Alvarez MD Oct 13, 2016 23:22
[2016-10-13 23:25] LABS: ALKALINE PHOSPHATASE 270 U/L (45-117); ALT (GPT) 95 U/L (12-78); DIGOXIN 0.7 NG/ML (0.8-2.0); TOTAL BILIRUBIN ADULT 0.6 MG/DL (0.2-1.0)
[2016-10-13 23:26] LABS: APTT (PATIENT) 42.5 SEC (24.3-30.1); CREATINE KINASE 23 U/L (39-308); INTERNATIONAL NORMALIZED RATIO 3.3 RATIO; PROTHROMBIN TIME - PATIENT 38.3 SEC (9.8-11.6)
[2016-10-13] MEDS ORDERED: POTA10TA2 PO (23:26)
[2016-10-14] VITALS (18 sets, daily range): BP systolic 82–141; BP diastolic 48–64; PULSE 72–146; RESP 17–37; TEMP 97.9–100; O2SAT 91–100
[2016-10-14] MEDS ORDERED: SENNOSIDES 8.6 MG TAB PO PRN
[2016-10-14] MEDS ORDERED: NALOXONE HCL 0.4 MG/ML AMP IV PRN
[2016-10-14] MEDS ORDERED: SODIUM CHLORIDE 0.9% FLUSH 5 ML FLUSH FLUSH PRN
[2016-10-14] MEDS ORDERED: DEXTROSE 50% IN WATER 50 ML VIAL(D50) IV PUSH PRN
[2016-10-14] MEDS ORDERED: ACETAMINOPHEN 325 MG TAB PO PRN
[2016-10-14] MEDS ORDERED: BISACODYL 10 MG SUPP PR PRN
[2016-10-14] MEDS ORDERED: ONDANSETRON HCL 4 MG/2 ML VIAL IVP PRN
[2016-10-14] MEDS ORDERED: GLUCAGON 1 MG/ML VIAL OTHER PRN
[2016-10-14] MEDS ORDERED: SODIUM CHLORIDE 0.9% FLUSH 5 ML FLUSH IVF PRN
[2016-10-14] MEDS: PIPERACIL-TAZO 3.375 GM PREMIX 50 ML IV ONE ×2 (00:16→00:17)
[2016-10-14 00:29] LABS: CALCIUM-PROTEIN CORRECTED 8.5 MG/DL (8.5-10.1)
[2016-10-14] MEDS: SODIUM CHLOR 0.9% 1000 ML INJ 1,000 ML IV SCH ×3 (00:32→12:49)
[2016-10-14] MEDS ORDERED: DIGOXIN 0.5 MG/2 ML VIAL IV PUSH ONE ×2 (01:00→08:15)
[2016-10-14 04:30] LABS: AUTOMATED NEUTROPHIL # 14.2 TH/MM3 (1.8-7.7); BASOPHIL % 0.1 % (0.0-2.0); EOSINOPHIL % 0.3 % (0.0-4.0); HEMATOCRIT 22.8 % (39.0-51.0); HEMO FLAGS DIFF FINAL; LYMPH % 3.2 % (9.0-44.0); LYMPHOCYTE # 0.5 TH/MM3 (1.0-4.8); MEAN CELL VOLUME 87.8 FL (80.0-100.0); MEAN CORPUSCULAR HEMOGLOBIN 29.4 PG (27.0-34.0); MEAN CORPUSCULAR HGB CONC 33.5 % (32.0-36.0); MONO % 2.5 % (0.0-8.0); NEUT % 93.9 % (16.0-70.0); PLATELET COUNT 296 TH/MM3 (150-450); RED CELL DISTRIBUTION WIDTH 17.2 % (11.6-17.2); WHITE BLOOD COUNT 15.2 TH/MM3 (4.0-11.0)
[2016-10-14 04:38] LABS: INTERNATIONAL NORMALIZED RATIO 3.4 RATIO; PROTHROMBIN TIME - PATIENT 39.9 SEC (9.8-11.6)
[2016-10-14 04:48] LABS: ALT (GPT) 82 U/L (12-78); ANION GAP 7 MEQ/L (5-15); AST (GOT) 42 U/L (15-37); BICARBONATE 24.1 MEQ/L (21.0-32.0); BLOOD UREA NITROGEN 56 MG/DL (7-18); CHLORIDE 99 MEQ/L (98-107); GLOMERULAR FILTRATION RATE 14 ML/MIN (>89); MAGNESIUM 1.5 MG/DL (1.5-2.5); SODIUM (NA) 130 MEQ/L (136-145)
[2016-10-14 04:49] LABS: ALKALINE PHOSPHATASE 267 U/L (45-117); TOTAL BILIRUBIN ADULT 0.8 MG/DL (0.2-1.0)
[2016-10-14] MEDS ORDERED: INSULIN HUMAN REGULAR 1,000 UNITS/10 ML VIAL IV PUSH ONE ×2 (05:15→12:45)
[2016-10-14] MEDS ORDERED: DEXTROSE 50% IN WATER 50 ML SYRINGE IV ONE (05:15)
[2016-10-14] MEDS ORDERED: SODIUM BICARBONATE 8.4% INJ 50 MEQ/50 ML SYR IV PUSH ONE ×2 (05:15→12:45)
[2016-10-14] MEDS ORDERED: CALCIUM GLUCONATE INJ 1 GM in DEXTROSE 5% IN WATER 100ML INJ 100 ML IV ONE ×2 (05:15)
[2016-10-14] MEDS ORDERED: VANCOMYCIN INJ 1,000 MG in SODIUM CHLOR 0.9% 250 ML INJ 250 ML IV ONE (05:30)
[2016-10-14 05:33] LABS: BLOOD GAS BASE EXCESS -6.3 mmol/L (-2-2); BLOOD GAS CARBOXYHEMOGLOBIN 2.3 % (0-4); BLOOD GAS HCO3 17 mmol/L (22-26); BLOOD GAS METHEMOGLOBIN 1.8 % (0-2); BLOOD GAS O2 HGB SATURATION 92 % (90-100); BLOOD GAS OXYGEN CONTENT 13.4 Vol % (12.0-20.0); BLOOD GAS PCO2 25 mmHg (38-42); BLOOD GAS PO2 74 mmHG (61-120); BLOOD GAS TOTAL HGB 10.3 G/DL (12.0-16.0); CRITICAL VALUE NO; DRAW SITE LT RADIAL; LITER FLOW 4 L/M; NUMBER OF ARTERIAL PUNCTURES 1; OXYGEN DEVICE NASAL CANNULA; STAT YES; TEMP CORR TO 98.6; ULNAR PULSE PRESENT
--- NOTE | 2016-10-14 05:58 | RADRPT ---
EXAM DATE/TIME: 10/14/2016 05:26 [facility] COMPARISON: No previous studies available for comparison. INDICATIONS : Shortness of breath. MEDICAL HISTORY : Hypertension. Congestive heart failure. Gastroesophageal reflux disease. CAD, AFIB, Renal failure , C.diff SURGICAL HISTORY : Coronary artery stent. ENCOUNTER: Initial ACUITY: 1 day PAIN SCORE: 0/10 LOCATION: Bilateral chest FINDINGS: Mild consolidation and small effusion of the left base not significantly changed. No pneumothorax. He art size stable, upper limits of normal to mildly enlarged. CONCLUSION: No significant change mild consolidation and small effusion of the left lung base. Daron Crawley MD on October 14, 2016 at 5:56 Board Certified Radiologist. This report was verified electronically.
[2016-10-14] MEDS ORDERED: ACETAMINOPHEN 500 MG CPLT PO ONE (06:00)
[2016-10-14] MEDS ORDERED: DOPamine INJ PREMIX 500 ML IV SCH (06:15)
[2016-10-14] MEDS ORDERED: TERBUTALINE INJ 1 MG/ML AMP SQ PRN ×2 (06:15→06:30)
[2016-10-14] MEDS ORDERED: SODIUM CHLOR 0.9% 250 ML INJ 250 ML IV ONE (06:15)
[2016-10-14] MEDS ORDERED: NOREPINEPHRINE-DEXTROSE DRIP 250 ML IV SCH (06:30)
[2016-10-14] MEDS ORDERED: NOREPINEPHRINE 4 MG/4 ML AMP ONE (06:37)
[2016-10-14] MEDS ORDERED: SODIUM CHLOR 0.9% 1000 ML INJ 1,000 ML IV ONE ×2 (06:45→08:00)
[2016-10-14] MEDS: INSULIN ASPART SUPPLEMENTAL SCALE SQ SCH ×4 (07:53→20:49)
--- NOTE | 2016-10-14 08:17 | PD.CONS ---
HPI Service CV Consult Requested By IWONA Cali Reason for Consult afib RVR Primary Care Physician Pelon Jiang M.D. History of Present Illness This is a 76 yo WM with hx of afib and recent admission for c-diff on vancomycin who was brought in last night by his brother as he was progressively feeling more weak. He was found to be in afib RVR, creatinine elevated (4.27) and found to be uroseptic. He is not a good historian and whether he sees a customer services coordinator regularly is unclear. It appears he may be taking digoxin at home. Currently he denies chest pain, SOB or palpitations. He continues to have diarrhea, no abdominal pain. (Steph Membreno) Review of Systems Consitutional: DENIES: Fever, Chills Respiratory: DENIES: Cough, Shortness of breath, Wheezing, Sputum production Cardiovascular: DENIES: Chest pain, Palpitations, Syncope, Tachycardia Gastrointestinal: COMPLAINS OF: Melena, DENIES: Vomiting, Reflux (Steph Membreno) Past Family Social History Allergies: Coded Allergies: No Known Allergies (Verified , 10/13/16) Past Medical History CAD, HTN, afib, digoxin toxicity, c diff Reported Medications Lopressor (Metoprolol Tartrate) 50 Mg Tab 25 Mg PO DAILY Vancomycin Inj (Vancomycin HCl) 500 Mg Inj 250 Mg PO QID Duoneb (Ipratropium-Albuterol Neb) 0.5-2.5 Mg/3 Ml Neb 1 Ampule INH Q4HR NEB PRN Coumadin (Warfarin) 3 Mg Tab 3 Mg PO DAILY@16 Atorvastatin (Atorvastatin Calcium) 10 Mg Tab 10 Mg PO HS Omeprazole 20 Mg Tab 20 Mg PO DAILY Probiotic (Lactobacillus Acidophilus) 1 Cap Cap 1 Cap PO TIDAC Tamsulosin (Tamsulosin HCl) 0.4 Mg Cap 0.4 Mg PO HS Multivitamin Men (Multiple Vitamins W/ Minerals) 1 Tab Tab 1 Tab PO DAILY Active Ordered Medications Current Medications Medications (Trade) Dose Ordered Sig/Guzman Route Start Time Stop Time Status Last Admin Diltiazem HCl 125 mg/Sodium Chloride 125 ml @ 0 mls/hr TITRATE IV 10/13/16 22:15 10/13/16 22:52 (NS 1000 ml Inj) 1,000 ml @ 100 mls/hr Q10H IV 10/13/16 23:51 10/14/16 00:32 (NS Flush) 2 ml UNSCH PRN FLUSH 10/14/16 00:00 (NS Flush) 2 ml BID FLUSH 10/14/16 09:00 (Tylenol) 650 mg Q4H PRN PO 10/14/16 00:00 (Zofran Inj) 4 mg Q6H PRN IVP 10/14/16 00:00 (Dulcolax Supp) 10 mg DAILY PRN [place] 10/14/16 00:00 (Senokot) 17.2 mg Q12H PRN PO 10/14/16 00:00 (Narcan Inj) 0.4 mg UNSCH PRN IV 10/14/16 00:00 (D50w (Vial) Inj) 25 ml UNSCH PRN IV PUSH 10/14/16 00:00 Glucagon 1 mg 1 mg UNSCH PRN OTHER 10/14/16 00:00 Ceftriaxone Sodium 1000 mg/ Sodium Chloride 100 ml @ 200 mls/hr Q24H IV 10/14/16 09:00 (Levophed-Dextrose Drip) 250 ml @ 0 mls/hr TITRATE IV 10/14/16 06:30 10/14/16 06:44 Terbutaline Sulfate 1 mg 1 mg UNSCH PRN SQ 10/14/16 06:30 Metronidazole 100 ml @ 100 mls/hr Q8H IV 10/14/16 08:00 UNV (NS 1000 ml Inj) 1,000 ml @ 999 mls/hr BOLUS ONCE IV 10/14/16 08:00 10/14/16 09:00 UNV Family History none known (Steph Membreno) Physical Exam Vital Signs Vital Signs Date Time Temp Pulse Resp B/P Pulse Ox O2 Delivery O2 Flow Rate FiO2 10/14/16 06:00 146 35 88/49 96 Nasal Cannula 4 10/14/16 05:00 122 37 141/64 91 Nasal Cannula 4 10/14/16 04:00 105 19 94/55 98 Nasal Cannula 2 10/14/16 01:00 126 26 105/57 96 Nasal Cannula 2 10/14/16 00:00 134 25 85/48 94 Nasal Cannula 2 10/14/16 00:00 98 Nasal Cannula 2.00 10/13/16 23:00 128 24 99 Nasal Cannula 2 10/13/16 23:00 128 28 108/61 98 Nasal Cannula 2 10/13/16 21:55 18 93 Room Air 10/13/16 21:55 128 18 102/58 138 20 104/61 10/13/16 21:50 138 18 98 Nasal Cannula 2 10/13/16 21:35 98.6 118 18 102/58 96 Physical Exam GENERAL: SKIN: Warm and dry. HEAD: Atraumatic. Normocephalic. . NECK: Trachea midline. No JVD. CARDIOVASCULAR: Regular rate and rhythm. RESPIRATORY: No accessory muscle use. Clear to auscultation. Breath sounds equal bilaterally. GASTROINTESTINAL: Abdomen soft, non-tender, nondistended. MUSCULOSKELETAL: Extremities without clubbing, cyanosis, or edema. No obvious deformities. NEUROLOGICAL: Awake and alert. No obvious cranial nerve deficits. Motor grossly within normal limits.. Normal speech. PSYCHIATRIC: Appropriate mood and affect; insight and judgment normal. Laboratory Laboratory Tests Test 10/13/16 10/13/16 10/13/16 10/14/16 21:35 22:00 23:55 03:50 Urine Color YELLOW Urine Turbidity CLOUDY Urine pH 6.0 Urine Specific [place] 1.011 Urine Protein TRACE Urine Glucose (UA) NEG Urine Ketones NEG Urine Occult Blood TRACE Urine Nitrite POS Urine Bilirubin NEG Urine Urobilinogen LESS THAN 2.0 Urine Leukocyte Esterase LARGE Urine RBC 14 Urine WBC Urine WBC Clumps MANY Urine Squamous Epithelial 2 Cells Urine Bacteria FEW Urine Hyaline Casts 3 Microscopic Urinalysis Comment CULTURE INDICATED White Blood Count 11.7 15.2 Red Blood Count 2.80 2.60 Hemoglobin 8.4 7.7 Hematocrit 24.7 22.8 Mean Corpuscular Volume 88.4 87.8 Mean Corpuscular Hemoglobin 30.2 29.4 Mean Corpuscular Hemoglobin 34.1 33.5 Concent Red Cell Distribution Width 17.5 17.2 Platelet Count 324 296 Mean Platelet Volume 8.8 8.6 Neutrophils (%) (Auto) 93.3 93.9 Lymphocytes (%) (Auto) 3.8 3.2 Monocytes (%) (Auto) 2.5 2.5 Eosinophils (%) (Auto) 0.2 0.3 Basophils (%) (Auto) 0.2 0.1 Neutrophils # (Auto) 10.9 14.2 Lymphocytes # (Auto) 0.4 0.5 Monocytes # (Auto) 0.3 0.4 Eosinophils # (Auto) 0.0 0.0 Basophils # (Auto) 0.0 0.0 CBC Comment DIFF FINAL DIFF FINAL Differential Comment Prothrombin Time 38.3 39.9 Prothromb Time International 3.3 3.4 Ratio Activated Partial 42.5 Thromboplast Time Sodium Level 129 130 Potassium Level 6.1 6.0 Chloride Level 97 99 Carbon Dioxide Level 24.6 24.1 Anion Gap 7 7 Blood Urea Nitrogen 60 56 Creatinine 4.27 4.22 Estimat Glomerular Filtration 14 14 Rate Random Glucose 99 91 Calcium Level 7.5 7.8 8.0 Magnesium Level 1.3 1.5 Total Bilirubin 0.6 0.8 Aspartate Amino Transf 58 42 (AST/SGOT) Alanine Aminotransferase 95 82 (ALT/SGPT) Alkaline Phosphatase 270 267 Total Creatine Kinase 23 Troponin I 0.02 0.02 B-Type Natriuretic Peptide 185 181 Total Protein 5.6 5.8 5.3 Albumin 1.4 1.3 Digoxin Level 0.7 Lactic Acid Level 1.2 Protein Corrected Calcium 8.5 Test 10/14/16 10/14/16 05:15 06:05 Blood Gas Puncture Site LT RADIAL Blood Gas Patient Temperature 98.6 Blood Gas HCO3 17 Blood Gas Base Excess -6.3 Blood Gas Oxygen Saturation 92 Arterial Blood pH 7.45 Arterial Blood Partial 25 Pressure CO2 Arterial Blood Partial 74 Pressure O2 Arterial Blood Oxygen Content 13.4 Arterial Blood 2.3 Carboxyhemoglobin Arterial Blood Methemoglobin 1.8 Blood Gas Hemoglobin 10.3 Oxygen Delivery Device NASAL CANNULA Blood Gas Liter Flow 4 Lactic Acid Level 4.9 Blood Type B POSITIVE Antibody Screen NEGATIVE Blood Bank Comment Date/Time Procedure Status Source Growth 10/13/16 23:53 Aerobic Blood Culture Received Blood Peripheral Pending 10/13/16 23:53 Anaerobic Blood Culture Received Blood Peripheral Pending 10/13/16 21:35 Urine Culture Received Urine Clean Catch Pending (Steph Membreno) Result Diagram: 10/14/16 0350 10/14/16 0350 Imaging Last Impressions Chest X-Ray 10/14/16 0000 Signed Impressions: Service Date/Time: Friday, October 14, 2016 05:26 - CONCLUSION: No significant change mild consolidation and small effusion of the left lung base. Daron Crawley MD (Steph Membreno) Assessment and Plan Problem List: (1) Atrial fibrillation with RVR Assessment and Plan: 76 yo WM with apparent urosepsis currently in afib RVR. In light of his acute renal status neosynephrine would be a better choice than Levophed to avoid reflex tachycardia. Cont Cardizem drip. Will check an INR; once urosepsis is managed, INR remains therapeutic and HR stabilizes will consider YANDEL cardioversion. will give digoxin on dose by dose basis with one dose given today and digoxin level checked tomorrow morning. (Steph Membreno) Problem List: (1) Atrial fibrillation with RVR Assessment and Plan: 76 yo WM with urosepsis and afib with RVR. rate control with cardizem gtt as BP allows. tachycardia likely due to increased adrenergic tone related to infection. hypotension - neosynephrine may be better option than levophed to avoid exacerbating tachycardia. Digoxin IV x 1. follow dig level for PRN dosing. if HR difficult to control in setting of hypotension, we could consider YANDEL DCC but will avoid unless absolutely necessary. will follow (Guevara Kulkarni MD) Steph Membreno Oct 14, 2016 08:17 Guevara Kulkarni MD Oct 14, 2016 09:48
--- NOTE | 2016-10-14 08:56 | PD.ID.CON ---
History of Present Illness Service ID Consult Requested By Dr.Sinoj Neri Reason for Consult Evaluation and Mment of Septic Shock, bilateral LE cellulitis, UTI with obstruction, possible Cdiff. Primary Care Physician Pelon Jiang M.D. Diagnoses: History of Present Illness is a 76 y/o CM resident of local long-term who was brought into the ED at [facility]. Prior history of Shewanella bacteremia, Cdiff Colitis , Left arm cellulitis in Jul 2016. PMHx is also significant for Afib on coumadin and digoxin. He was brought in via EMS from [facility] with complaints of generalized weakness for the past week. Patient reports he has been admitted 3 times in last few months for cellulitis and Cdiff. He reports he has had blisters and redness of leg for 5 days prior to admission. He reports the blisters bust open and the redness has improved. Unsure if patient has received any antibiotics prior to arrival. [facility] records could not be located by me. He reports diarrhea but at time of my evaluation patient had semiformed stools (off note patient is on oral vanco prior to arrival). Patient reports abdominal pain mostly on the right side. Upon initial arrival patients vital signs were WBC 11.7,H/H:8.4/24, Plts 324. AST:42; ALT;82;AKP 267; BNP 181; Alb 1.3; Cr 4.22 (last Cr in 09/30/16: 2.31). Patient had fever 98.6F, HR 134; RR 35; BP 102/58. Patient developed temp of 102 F in hospital. Due to low urine output a burgos catheter was inserted and large volume of yellow white urine was collected. Patient also recd 2.5 L of fluid boluses and is currently on Levophed 10 mics and Cardizem 5 mg/hr. He was on Dopamine earlier which is now discontinued. At the time of my evaluation patient is in the ED in C pod. He is alert and oriented x 3, moving al 4 extremities. Patient has recd Zosyn IV, Vanco IV x 1 doses. He is now on Ceftriaxone IV and flagyl IV. Pertinent positives and negatives: Patient denies fever, chills, shortness of breath, chest pain, cough, or wheezing. Patient states his appetite is not great, but denies nausea or vomiting. Patient is currently on vancomycin for his C. difficile. ID is consulted for evaluation and Mment of Septic Shock, bilateral LE cellulitis, UTI with obstruction, hydronephrosis, Possible Cdiff Review of Systems ROS Limitations: Poor Historian Constitutional: COMPLAINS OF: Change in appetite, DENIES: Diaphoretic episodes , Fatigue, Fever, Weight gain, Weight loss, Chills, Dizziness, Night Sweats Endocrine: DENIES: Heat/cold intolerance, Polydipsia, Polyuria, Polyphagia Eyes: DENIES: Blurred vision, Diplopia, Eye inflammation, Eye pain, Vision loss , Photosensitivity, Double Vision Ears, nose, mouth, throat: DENIES: Tinnitus, Hearing loss, Vertigo, Nasal discharge, Oral lesions, Throat pain, Hoarseness, Ear Pain, Running Nose, Epistaxis, Sinus Pain, Toothache, Odynophagia Respiratory: DENIES: Apneas, Cough, Snoring, Wheezing, Hemoptysis, Sputum production, Shortness of breath Cardiovascular: DENIES: Chest pain, Palpitations, Syncope, Dyspnea on Exertion , PND, Lower Extremity Edema, Orthopnea, Claudication Gastrointestinal: COMPLAINS OF: Abdominal pain, Anorexia, DENIES: Black stools , Bloody stools, Constipation, Diarrhea, Nausea, Vomiting, Difficulty Swallowing Genitourinary: DENIES: Sexual dysfunction, Urinary frequency, Urinary incontinence, Urgency, Hematuria, Dysuria, Nocturia, Penile Discharge, Testicular Pain, Testicular Swelling Musculoskeletal: COMPLAINS OF: Joint pain (RLE swelling.), Joint Swelling Integumentary: DENIES: Abnormal pigmentation, Nail changes, Pruritus, Rash Hematologic/lymphatic: DENIES: Bruising, Lymphadenopathy Immunologic/allergic: DENIES: Eczema, Urticaria Neurologic: DENIES: Abnormal gait, Headache, Localized weakness, Paresthesias, Seizures, Speech Problems, Tremor, Poor Balance Psychiatric: DENIES: Anxiety, Confusion, Mood changes, Depression, Hallucinations, Agitation, Suicidal Ideation, Homicidal Ideation, Delusions Past Family Social History Allergies: Coded Allergies: No Known Allergies (Verified , 10/13/16) Past Medical History Shewanella bacteremia Cdiff Jul 2016 HTN hard of hearing Hyperlipidemia Hypertension Atrial fibrillation On coumadin CKD Cellulitis left arm CAD Past Surgical History PCI with stent placement x 2 KOMAL Left eye growth removal Reported Medications Reported Meds & Active Scripts Active Lopressor (Metoprolol Tartrate) 50 Mg Tab 25 Mg PO DAILY Vancomycin Inj (Vancomycin HCl) 500 Mg Inj 250 Mg PO QID Duoneb (Ipratropium-Albuterol Neb) 0.5-2.5 Mg/3 Ml Neb 1 Ampule INH Q4HR NEB PRN Coumadin (Warfarin) 3 Mg Tab 3 Mg PO DAILY@16 Reported Potassium Chloride ER (Potassium Chloride) 10 Meq Tab 10 Meq PO DAILY Atorvastatin (Atorvastatin Calcium) 10 Mg Tab 10 Mg PO HS Omeprazole 20 Mg Tab 20 Mg PO DAILY Probiotic (Lactobacillus Acidophilus) 1 Cap Cap 1 Cap PO TIDAC Tamsulosin (Tamsulosin HCl) 0.4 Mg Cap 0.4 Mg PO HS Multivitamin Men (Multiple Vitamins W/ Minerals) 1 Tab Tab 1 Tab PO DAILY Active Ordered Medications Current Medications Medications (Trade) Dose Ordered Sig/Guzman Route Start Time Stop Time Status Last Admin Diltiazem HCl 125 mg/Sodium Chloride 125 ml @ 0 mls/hr TITRATE IV 10/13/16 22:15 10/13/16 22:52 (NS 1000 ml Inj) 1,000 ml @ 100 mls/hr Q10H IV 10/13/16 23:51 10/14/16 00:32 (NS Flush) 2 ml UNSCH PRN FLUSH 10/14/16 00:00 (NS Flush) 2 ml BID FLUSH 10/14/16 09:00 (Tylenol) 650 mg Q4H PRN PO 10/14/16 00:00 (Zofran Inj) 4 mg Q6H PRN IVP 10/14/16 00:00 (Dulcolax Supp) 10 mg DAILY PRN ME 10/14/16 00:00 (Senokot) 17.2 mg Q12H PRN PO 10/14/16 00:00 (Narcan Inj) 0.4 mg UNSCH PRN IV 10/14/16 00:00 (D50w (Vial) Inj) 25 ml UNSCH PRN IV PUSH 10/14/16 00:00 Glucagon 1 mg 1 mg UNSCH PRN OTHER 10/14/16 00:00 Ceftriaxone Sodium 1000 mg/ Sodium Chloride 100 ml @ 200 mls/hr Q24H IV 10/14/16 09:00 (Levophed-Dextrose Drip) 250 ml @ 0 mls/hr TITRATE IV 10/14/16 06:30 10/14/16 06:44 Terbutaline Sulfate 1 mg 1 mg UNSCH PRN SQ 10/14/16 06:30 Metronidazole 100 ml @ 100 mls/hr Q8H IV 10/14/16 09:00 (NS 1000 ml Inj) 1,000 ml @ 999 mls/hr BOLUS ONCE IV 10/14/16 08:00 10/14/16 09:00 10/14/16 08:49 Family History reviewed and NC to current ID problems. Social History reviewed. Lives in [facility]. Ex- and daughter live in town. he used to be in the [employer]. 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 He smoked 2 ppd for 40 plus yrs He consumed large amounts of alcohol in past quit many yrs back. Physical Exam Vital Signs Vital Signs Date Time Temp Pulse Resp B/P Pulse Ox O2 Delivery O2 Flow Rate FiO2 10/14/16 06:00 146 35 88/49 96 Nasal Cannula 4 10/14/16 05:00 122 37 141/64 91 Nasal Cannula 4 10/14/16 04:00 105 19 94/55 98 Nasal Cannula 2 10/14/16 01:00 126 26 105/57 96 Nasal Cannula 2 10/14/16 00:00 134 25 85/48 94 Nasal Cannula 2 10/14/16 00:00 98 Nasal Cannula 2.00 10/13/16 23:00 128 24 99 Nasal Cannula 2 10/13/16 23:00 128 28 108/61 98 Nasal Cannula 2 10/13/16 21:55 18 93 Room Air 10/13/16 21:55 128 18 102/58 138 20 104/61 10/13/16 21:50 138 18 98 Nasal Cannula 2 10/13/16 21:35 98.6 118 18 102/58 96 Physical Exam GENERAL: This is a well-nourished, well-developed patient, in no apparent distress. SKIN: Skin with blisters on bilateral LE, upper back. Erythema on right thigh. Bilateral LE edema right more than left with mild erythema. Ecchymosis. HEAD: Atraumatic. Normocephalic. No temporal or scalp tenderness. EYES: Pupils equal round and reactive. Extraocular motions intact. No scleral icterus. No injection or drainage. ENT: Nose without bleeding, purulent drainage or septal hematoma. Throat without erythema, tonsillar hypertrophy or exudate. Uvula midline. Airway patent. NECK: Trachea midline. Supple, nontender, no meningeal signs. CARDIOVASCULAR: HS audible. No murmur appreciated. RESPIRATORY: Clear to auscultation. Breath sounds equal bilaterally. No wheezes , rales, or rhonchi. GASTROINTESTINAL: Abdomen soft, non-tender, nondistended. No hepato-splenomegaly , or palpable masses. No guarding. MUSCULOSKELETAL: per skin. No joint effusions Sacrum: skin erythema but no breaks noted. NEUROLOGICAL: Awake and alert. Grossly non focal Psych: cooperative IV line sites with no e/o infection. Laboratory Laboratory Tests Test 10/13/16 10/13/16 10/13/16 10/14/16 21:35 22:00 23:55 03:50 Urine Color YELLOW Urine Turbidity CLOUDY Urine pH 6.0 Urine Specific [place] 1.011 Urine Protein TRACE Urine Glucose (UA) NEG Urine Ketones NEG Urine Occult Blood TRACE Urine Nitrite POS Urine Bilirubin NEG Urine Urobilinogen LESS THAN 2.0 Urine Leukocyte Esterase LARGE Urine RBC 14 Urine WBC Urine WBC Clumps MANY Urine Squamous Epithelial 2 Cells Urine Bacteria FEW Urine Hyaline Casts 3 Microscopic Urinalysis Comment CULTURE INDICATED White Blood Count 11.7 15.2 Red Blood Count 2.80 2.60 Hemoglobin 8.4 7.7 Hematocrit 24.7 22.8 Mean Corpuscular Volume 88.4 87.8 Mean Corpuscular Hemoglobin 30.2 29.4 Mean Corpuscular Hemoglobin 34.1 33.5 Concent Red Cell Distribution Width 17.5 17.2 Platelet Count 324 296 Mean Platelet Volume 8.8 8.6 Neutrophils (%) (Auto) 93.3 93.9 Lymphocytes (%) (Auto) 3.8 3.2 Monocytes (%) (Auto) 2.5 2.5 Eosinophils (%) (Auto) 0.2 0.3 Basophils (%) (Auto) 0.2 0.1 Neutrophils # (Auto) 10.9 14.2 Lymphocytes # (Auto) 0.4 0.5 Monocytes # (Auto) 0.3 0.4 Eosinophils # (Auto) 0.0 0.0 Basophils # (Auto) 0.0 0.0 CBC Comment DIFF FINAL DIFF FINAL Differential Comment Prothrombin Time 38.3 39.9 Prothromb Time International 3.3 3.4 Ratio Activated Partial 42.5 Thromboplast Time Sodium Level 129 130 Potassium Level 6.1 6.0 Chloride Level 97 99 Carbon Dioxide Level 24.6 24.1 Anion Gap 7 7 Blood Urea Nitrogen 60 56 Creatinine 4.27 4.22 Estimat Glomerular Filtration 14 14 Rate Random Glucose 99 91 Calcium Level 7.5 7.8 8.0 Magnesium Level 1.3 1.5 Total Bilirubin 0.6 0.8 Aspartate Amino Transf 58 42 (AST/SGOT) Alanine Aminotransferase 95 82 (ALT/SGPT) Alkaline Phosphatase 270 267 Total Creatine Kinase 23 Troponin I 0.02 0.02 B-Type Natriuretic Peptide 185 181 Total Protein 5.6 5.8 5.3 Albumin 1.4 1.3 Digoxin Level 0.7 Lactic Acid Level 1.2 Protein Corrected Calcium 8.5 Test 10/14/16 10/14/16 10/14/16 05:15 06:05 07:49 Blood Gas Puncture Site LT RADIAL Blood Gas Patient Temperature 98.6 Blood Gas HCO3 17 Blood Gas Base Excess -6.3 Blood Gas Oxygen Saturation 92 Arterial Blood pH 7.45 Arterial Blood Partial 25 Pressure CO2 Arterial Blood Partial 74 Pressure O2 Arterial Blood Oxygen Content 13.4 Arterial Blood 2.3 Carboxyhemoglobin Arterial Blood Methemoglobin 1.8 Blood Gas Hemoglobin 10.3 Oxygen Delivery Device NASAL CANNULA Blood Gas Liter Flow 4 Lactic Acid Level 4.9 Blood Type B POSITIVE Antibody Screen NEGATIVE Blood Bank Comment Date/Time Procedure Status Source Growth 10/13/16 23:53 Aerobic Blood Culture Received Blood Peripheral Pending 10/13/16 23:53 Anaerobic Blood Culture Received Blood Peripheral Pending 10/13/16 21:35 Urine Culture Received Urine Clean Catch Pending Result Diagram: 10/14/16 0350 10/14/16 0350 Imaging Last Impressions Chest X-Ray 10/14/16 0000 Signed Impressions: Service Date/Time: Friday, October 14, 2016 05:26 - CONCLUSION: No significant change mild consolidation and small effusion of the left lung base. Daron Crawley MD Assessment and Plan Assessment and Plan Septic Shock Possible complicated UTI with urinary obstruction h/o recurrent Cdiff possible Cdiff Colitis due to abdominal pain and tenderness. Bilateral LE cellulitis with blisters ? Strep. Acute renal failure: sepsis, prerenal, urinary obstruction. Elevated LFTs: sepsis related. Urinary obstruction Hypoalbuminemia: ? nutritional Recs: DC ceftriaxone IV (GI pass can ppt Cdiff) Start Cefepime IV (prior multiple admissions needs broad spectrum). renal dose adjusted by me. Continue Flagyl IV No need vanco IV for now. Nephrology consult (acute on chronic renal failure) CT non contrast abdomen: hydronephrosis, stone, colitis given h/o Cdiff and abd pain and tenderness. Follow cultures Follow clinically. \d/w RN, pt D.w Karla Muñoz MD Oct 14, 2016 08:56
[2016-10-14] MEDS: SODIUM CHLORIDE 0.9% FLUSH 5 ML FLUSH FLUSH SCH ×2 (09:00→20:49)
[2016-10-14] MEDS ORDERED: cefTRIAXone INJ 1,000 MG in SODIUM CHLORIDE 0.9% INJ 100 ML IV SCH (09:00)
[2016-10-14] MEDS ORDERED: SODIUM CHLORIDE 0.9% FLUSH 5 ML FLUSH IVF SCH (09:00)
[2016-10-14] MEDS: metroNIDAZOLE 500 MG INJ 100 ML IV SCH ×2 (09:59→17:33)
--- NOTE | 2016-10-14 10:40 | MH ---
cc: CHERRY ANDRADE MD DATE OF ADMISSION: 10/13/2016 CHIEF COMPLAINT Weakness and shortness of breath HISTORY OF PRESENT ILLNESS This is a 76 year-old white male who was brought into the emergency room via EMS for complaints of generalized weakness. He states that he has had cough, generalized weakness and dizziness for approximately a month and a half. It has worsened over the past week and he felt the need to be evaluated. The patient denied any fever before admission, but when coming into the hospital, he was noted to have fever and tachycardia. He denies any nausea or vomiting, but states that he has had diarrhea for the past month and a half. He was positive for C. Diff and has been on p.o. vancomycin according to the record. The patient is a fair to poor historian. A lot of this information is being gathered from the record. He answers some questions with yes or no. The patient does note some visual changes and states that he has had some lines or circles that are appearing around his vision, but this has been going on for quite some time. He also notes that he is still having some diarrhea. He states that his kidneys are acting as they have been without any issues. He does state he has some depressed appetite and has not been eating as much as he did even a year ago. The patient was noted to have open blisters on his lower extremities with edema. These are now wrapped with gauze and Parviz with no drainage noted on the dressings. He does have 1-2+ peripheral edema bilaterally in his lower extremities. The patient states he continues to cough with production of thick yellow sputum. This is continuing even during our exam. PAST MEDICAL HISTORY Includes: 1. Atrial fibrillation 2. Possibly anticoagulant therapy 3. Asthma 4. Hypertension 5. Coronary disease 6. Congestive heart failure 7. Hard of hearing 8. GERD 9. Headaches 10. Musculoskeletal issues with steroid injections noted approximately 10 years ago. 11. History of renal failure. PAST SURGICAL HISTORY Coronary stents times two. No other noted surgery. ALLERGIES No known allergies. MEDICATIONS To reconcile: 1. Tamsulosin 0.4 mg p.o. h.s. 2. Vancomycin 250 mg by mouth four times a day 3. Coumadin 3 mg 4. Probiotic 5. DuoNebs 6. Lopressor 25 mg daily 7. Atorvastatin 10 mg at h.s. 8. Multivitamins 9. Protonix 10. Potassium chloride 10 mEq p.o. daily SOCIAL HISTORY The patient has been living in the SNF for approximately one year. Before that, he lived in his home, but currently his brother is living in his home. He does have two children that are in the area. He has no history of alcohol or illicit drug use. History of tobacco use, but quit in 1998. FAMILY HISTORY Heart disease with irregular rhythms and Parkinson's. REVIEW OF SYSTEMS A 12-point review was obtained. Positives noted in the HPI include cough with productive sputum, weakness and fatigue, shortness of breath, decreased appetite, diarrhea. All other systems are unremarkable or negative. PHYSICAL EXAM VITAL SIGNS: Temp noted on the record is 99.6, but nurse stated during our exam he did have fever on admission. Pulse labile between 105-134, has increased to 146 in the early a.m. hours 0600, respiratory rate labile between 19-35. Blood pressure 108/61, 141/64 and 88/49. Pulse ox between 91-98. O2 at two liters. GENERAL: This is a thin white male who looks his stated age resting in the bed. Mild dyspnea noted. SKIN: Warm and dry, pale, thin turgor. Bilateral extremity superficial blisters noted with peripheral edema. HEAD, EYES, EARS, NOSE, AND THROAT: Atraumatic, normocephalic. PERRLA at 2. No scleral icterus. No drainage. Mucous membranes are pale and dry orally. Trachea is midline. NECK: Supple. CARDIOVASCULAR: Tachycardic rhythm, irregular, systolic murmur noted at the lower left sternal border. 1-2+ pedal edema. Pulses intact. Extremities warm. RESPIRATORY: Breath sounds are equal. He does have some rhonchi. He does have some decreased breath sounds bilateral more so on the left than the right. GASTROINTESTINAL: Abdomen is flat, soft, nontender and nondistended. Active bowel sounds in all four quadrants. MUSCULOSKELETAL: He does move extremities on command. 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 No clubbing or cyanosis. NEUROLOGIC: He is awake and alert times three. Fair to poor historian, although his speech is normal and clear. 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 PSYCHIATRIC: Appropriate mood. Judgment is normal for the current situation. DIAGNOSTIC DATA Labs include a WBC count of 15.2, RBC 2.6, hemoglobin initially was 8.4, now 7.7, hematocrit 22.8, platelet count 296, neutrophil auto-count 93.9, lymphocytes 3.2. PT-INR is 3.4. Urine is yellow, cloudy, pH is 6, trace of protein, negative for glucose or ketones, trace of blood, positive for nitrites, large amount of leukocyte esterase. Dig level is 0.7. Chemistry sodium 130, potassium 6, amnion gap 7, BUN 56, creatinine 4.22. GFR 14, glucose 91, lactic acid 1.2 on admission now 4.9. Calcium 8, albumen 1.3. Total protein 5.3. His chest x-ray shows mild basilar air space disease, no pneumothorax. On admission, today's x-ray shows left effusion in the left base, mild consolidation. ASSESSMENT AND PLAN 1. Sepsis 2. Atrial fibrillation with RVR 3. Acute kidney injury with renal insufficiency 4. Hyperkalemia 5. Coronary artery disease 6. UTI 7. Severe protein calorie malnutrition 8. Dehydration PLAN 1. We will reconcile his medications. 2. Give him gentle hydration with IV fluids. 3. A Cardizem drip has been initiated and will continue for his Tachycardia. The patient's heart run is still running in the 130's-140's, he may need to be re-bolused and drip increased. 4. The patient's blood pressure does seem to be dropping over the last hour. We will start him on low dose Dopamine to assist during this septic event. His vital signs will be q1 to q4. 5. Heart healthy diet 6. Accu-Chek's a.c. and h.s. to monitor for any hyper or hypoglycemic issues. 7. DVT prophylaxis. The patient is on Coumadin. 8. PUD prophylaxis with Protonix. 9. We will monitor his labs to rule out cardiac event, as well as any heart failure or pneumonia. 10. The patient will receive bowel regimen as well as IV antibiotics Ceftriaxone. 11. SCD's, DuoNebs, telemetry and patent IV's. 12. Infectious disease will be consulted for their expert opinion and we will continue to monitor. Dictated by CUBA Bueno MD PATY Youssef/HÉCTOR /9:02 AM /10:36 AM
--- NOTE | 2016-10-14 10:42 | PD.CONS ---
HPI Service Nephrology Consult Requested By Reason for Consult Acute on CKD Primary Care Physician Pelon Jiang M.D. History of Present Illness This is a 76 y/o male pt [facility] for weakness, fatigue. found to be in renal failure with hyperkalemia on admission. Were were consulted for renal management. We saw this patient earlier in the month, when he was admitted with renal failure thought to be due to overdiuresis and diarrhea from C diff. His creatinine was 4.7 last admission that improved to 2.1 at time of discharge with IVF. Today his creatinine is 4.2, K 6.0. He was treated with IV insulin, sodium bicarbonate, and IVF. He is hypotensive on pressors. He is also anemic. Hx of A fib, he was in RVR and a Cardizem gtt was started. He is a full code, and has been evaluated by ID and hematology. Of note he is to receive 2 units FFP in anticipation of central line. When the burgos was placed he had over 1 liter output. (Monika Martinez) Review of Systems Constitutional: COMPLAINS OF: Fatigue, Change in appetite, DENIES: Fever, Chills Cardiovascular: DENIES: Chest pain Gastrointestinal: COMPLAINS OF: Abdominal pain (Monika Martinez) Past Family Social History Allergies: Coded Allergies: No Known Allergies (Verified , 10/13/16) Past Medical History A fib on Coumadin CHF HTN CAD Asthma Hx c diff Hx RAVEN Past Surgical History PCI with stent Reported Medications Lopressor (Metoprolol Tartrate) 50 Mg Tab 25 Mg PO DAILY Vancomycin Inj (Vancomycin HCl) 500 Mg Inj 250 Mg PO QID Duoneb (Ipratropium-Albuterol Neb) 0.5-2.5 Mg/3 Ml Neb 1 Ampule INH Q4HR NEB PRN Coumadin (Warfarin) 3 Mg Tab 3 Mg PO DAILY@16 Atorvastatin (Atorvastatin Calcium) 10 Mg Tab 10 Mg PO HS Omeprazole 20 Mg Tab 20 Mg PO DAILY Probiotic (Lactobacillus Acidophilus) 1 Cap Cap 1 Cap PO TIDAC Tamsulosin (Tamsulosin HCl) 0.4 Mg Cap 0.4 Mg PO HS Multivitamin Men (Multiple Vitamins W/ Minerals) 1 Tab Tab 1 Tab PO DAILY Active Ordered Medications Last 72 hours Impressions Chest X-Ray 10/14/16 0000 Signed Impressions: Service Date/Time: Friday, October 14, 2016 05:26 - CONCLUSION: No significant change mild consolidation and small effusion of the left lung base. Daron Crawley MD Chest X-Ray 10/13/166 Signed Impressions: Service Date/Time: Thursday, October 13, 2016 22:02 - CONCLUSION: 1. Mild basilar airspace disease. No pneumothorax. Philip Tanner MD Family History NO hx of renal disorders Social History , lives alone but has been staying at SNF since last discharge former smoker no social support he is retired full code (Monika Martinez) Physical Exam Vital Signs Vital Signs Date Time Temp Pulse Resp B/P Pulse Ox O2 Delivery O2 Flow Rate FiO2 10/14/16 10:15 93 Nasal Cannula 4.00 10/14/16 09:00 100.0 119 20 91/54 97 Nasal Cannula 2 10/14/16 06:00 146 35 88/49 96 Nasal Cannula 4 10/14/16 05:00 122 37 141/64 91 Nasal Cannula 4 10/14/16 04:00 105 19 94/55 98 Nasal Cannula 2 10/14/16 01:00 126 26 105/57 96 Nasal Cannula 2 10/14/16 00:00 134 25 85/48 94 Nasal Cannula 2 10/14/16 00:00 98 Nasal Cannula 2.00 10/13/16 23:00 128 24 99 Nasal Cannula 2 10/13/16 23:00 128 28 108/61 98 Nasal Cannula 2 10/13/16 21:55 18 93 Room Air 10/13/16 21:55 128 18 102/58 138 20 104/61 10/13/16 21:50 138 18 98 Nasal Cannula 2 10/13/16 21:35 98.6 118 18 102/58 96 Physical Exam Elderly male, awake/alert very poor dentition, broken rotten teeth S1/S2, irreg irreg, hr 90s Lungs: clear in all honeycutt Abd: soft, tender Ext: bilateral lower extremity edema, distal pulses intact skin: lower leg blisters, dressing intact; right hip rash Laboratory Laboratory Tests Test 10/13/16 10/13/16 10/13/16 10/14/16 21:35 22:00 23:55 03:50 Urine Color YELLOW Urine Turbidity CLOUDY Urine pH 6.0 Urine Specific [place] 1.011 Urine Protein TRACE Urine Glucose (UA) NEG Urine Ketones NEG Urine Occult Blood TRACE Urine Nitrite POS Urine Bilirubin NEG Urine Urobilinogen LESS THAN 2.0 Urine Leukocyte Esterase LARGE Urine RBC 14 Urine WBC Urine WBC Clumps MANY Urine Squamous Epithelial 2 Cells Urine Bacteria FEW Urine Hyaline Casts 3 Microscopic Urinalysis Comment CULTURE INDICATED White Blood Count 11.7 15.2 Red Blood Count 2.80 2.60 Hemoglobin 8.4 7.7 Hematocrit 24.7 22.8 Mean Corpuscular Volume 88.4 87.8 Mean Corpuscular Hemoglobin 30.2 29.4 Mean Corpuscular Hemoglobin 34.1 33.5 Concent Red Cell Distribution Width 17.5 17.2 Platelet Count 324 296 Mean Platelet Volume 8.8 8.6 Neutrophils (%) (Auto) 93.3 93.9 Lymphocytes (%) (Auto) 3.8 3.2 Monocytes (%) (Auto) 2.5 2.5 Eosinophils (%) (Auto) 0.2 0.3 Basophils (%) (Auto) 0.2 0.1 Neutrophils # (Auto) 10.9 14.2 Lymphocytes # (Auto) 0.4 0.5 Monocytes # (Auto) 0.3 0.4 Eosinophils # (Auto) 0.0 0.0 Basophils # (Auto) 0.0 0.0 CBC Comment DIFF FINAL DIFF FINAL Differential Comment Prothrombin Time 38.3 39.9 Prothromb Time International 3.3 3.4 Ratio Activated Partial 42.5 Thromboplast Time Sodium Level 129 130 Potassium Level 6.1 6.0 Chloride Level 97 99 Carbon Dioxide Level 24.6 24.1 Anion Gap 7 7 Blood Urea Nitrogen 60 56 Creatinine 4.27 4.22 Estimat Glomerular Filtration 14 14 Rate Random Glucose 99 91 Calcium Level 7.5 7.8 8.0 Magnesium Level 1.3 1.5 Total Bilirubin 0.6 0.8 Aspartate Amino Transf 58 42 (AST/SGOT) Alanine Aminotransferase 95 82 (ALT/SGPT) Alkaline Phosphatase 270 267 Total Creatine Kinase 23 Troponin I 0.02 0.02 B-Type Natriuretic Peptide 185 181 Total Protein 5.6 5.8 5.3 Albumin 1.4 1.3 Digoxin Level 0.7 Lactic Acid Level 1.2 Protein Corrected Calcium 8.5 Test 10/14/16 10/14/16 10/14/16 10/14/16 05:15 06:05 07:49 09:15 Blood Gas Puncture Site LT RADIAL Blood Gas Patient Temperature 98.6 Blood Gas HCO3 17 Blood Gas Base Excess -6.3 Blood Gas Oxygen Saturation 92 Arterial Blood pH 7.45 Arterial Blood Partial 25 Pressure CO2 Arterial Blood Partial 74 Pressure O2 Arterial Blood Oxygen Content 13.4 Arterial Blood 2.3 Carboxyhemoglobin Arterial Blood Methemoglobin 1.8 Blood Gas Hemoglobin 10.3 Oxygen Delivery Device NASAL CANNULA Blood Gas Liter Flow 4 Lactic Acid Level 4.9 Blood Type B POSITIVE B POSITIVE Antibody Screen NEGATIVE Blood Bank Comment Date/Time Procedure Status Source Growth 10/13/16 23:53 Aerobic Blood Culture Received Blood Peripheral Pending 10/13/16 23:53 Anaerobic Blood Culture Received Blood Peripheral Pending 10/13/16 21:35 Urine Culture Received Urine Clean Catch Pending (Monika Martinez) Result Diagram: 10/14/16 0350 10/14/16 0350 Imaging Last 72 hours Impressions Chest X-Ray 10/14/16 0000 Signed Impressions: Service Date/Time: Friday, October 14, 2016 05:26 - CONCLUSION: No significant change mild consolidation and small effusion of the left lung base. Daron Crawley MD Chest X-Ray 10/13/162145 Signed Impressions: Service Date/Time: Thursday, October 13, 2016 22:02 - CONCLUSION: 1. Mild basilar airspace disease. No pneumothorax. Philip Tanner MD (Monika Martinez) Assessment and Plan Problem List: (1) RAVEN (acute kidney injury) Plan: May be prerenal azotemia due to sepsis, renal hypoperfusion, may have progressed to ATN also he was found with obstructive uropathy on er admission he is non oliguric Hyperkalemic, K was treated, follow up BMP hypotensive on Pressors, continue and maintain MAP > 65 mmHg gentle hydration, NS @ 50 cc/hr has a burgos and did have a component of retention coming in daily metabolic profile monitor urine output avoid nephrotoxins (2) Severe sepsis Plan: ? urosepsis, cultures in progress ID following continue antimicrobial therapy , on cefepime and IV flagyl CT abd/pelvis without contrast ordered (3) Atrial fibrillation with RVR Plan: Cardizem gtt continues (4) Hyperkalemia Plan: due to diminished renal clearance follow up BMP (Monika Martinez) Assessment and Plan patient was seen and examined. Acute on chronic kidney disease could be multifactorial. Certainly had obstructive component, Burgos placement resulted in output of 1300 ml of urine. Sepsis, intravascular volume depletion progressing to ATN is a consideration as well. Hyperkalemia due to obstruction and renal failure. Repeat potassium has improved. Continue antibiotic, patient unfortunately had C.diff recently. Cautious hydration. Avoid nephrotoxic agents. (Ruben Callahan MD) Monika Martinez Oct 14, 2016 10:42 Ruben Callahan MD Oct 14, 2016 20:13
--- NOTE | 2016-10-14 10:54 | RADRPT ---
EXAM DATE/TIME: 10/14/2016 10:14 [facility] COMPARISON: No previous studies available for comparison. INDICATIONS : Right abdominal pain. Abscess, colitis. General weakness. ORAL CONTRAST: No oral contrast ingested. RADIATION DOSE: 11.22 CTDIvol (mGy) MEDICAL HISTORY : Cardiovascular disease. Hypertension. Renal insufficiency. SURGICAL HISTORY : None. ENCOUNTER: Initial ACUITY: 1 week PAIN SCALE: 5/10 LOCATION: Right upper quadrant TECHNIQUE: Volumetric scanning of the abdomen and pelvis was performed. Using automated exposure control and adjustment of the mA and/or kV according to patient size, radiation dose was kept as low as reasonably achievable to obtain optimal diagnostic quality images. FINDINGS: CT scan abdomen and pelvis was performed without contrast. There are small bilateral pleural effusions. There is consolidation of both lung bases, atelectasis versus pneumonia. There is no pneumothorax. The unenhanced liver, gallbladder, spleen and pancreas are unremarkable. There is a bilobed cyst in the midpole of the left kidney. Neither kidney is obstructed. Ureters are unremarkable. Lambert cath eter is in place. The visualized colon is unremarkable. I don't see any evidence of colitis or certainly no C-difficil e colitis. There is air in the bladder with a Lambert catheter. There is diffuse body wall edema. CONCLUSION: 1. No evidence of colitis or colonic wall thickening. 2. Solid organs are unremarkable except for a bilobed cyst midpole left kidney. No evidence of john l obstruction. Diffuse body wall edema. Guevara Swain MD on October 14, 2016 at 10:45 Board Certified Radiologist. This report was verified electronically.
[2016-10-14] MEDS ORDERED: MORPHINE SULFATE 8 MG/ML INJ ONE (11:38)
[2016-10-14 11:49] LABS: ALT (GPT) 85 U/L (12-78); ANION GAP 9 MEQ/L (5-15); AST (GOT) 57 U/L (15-37); BICARBONATE 22.5 MEQ/L (21.0-32.0); BLOOD UREA NITROGEN 55 MG/DL (7-18); CHLORIDE 101 MEQ/L (98-107); GLOMERULAR FILTRATION RATE 15 ML/MIN (>89); POTASSIUM 5.8 MEQ/L (3.5-5.1); SODIUM (NA) 132 MEQ/L (136-145)
[2016-10-14 11:51] LABS: ALKALINE PHOSPHATASE 307 U/L (45-117); TOTAL BILIRUBIN ADULT 0.9 MG/DL (0.2-1.0)
--- NOTE | 2016-10-14 12:09 | PD.PROCEDR ---
Central Line Procedure REASON FOR PROCEDURE Central venous access PROCEDURE PERFORMED Central line placement: RIJ central line CONSENT Informed consent for procedure was obtained and time out performed. The risks and benefits of the procedure were discussed to include but limited to bleeding , clot formation, infection, and even . ANESTHESIA Local injection of 1% Lidocaine DESCRIPTION OF THE PROCEDURE The patient was placed in supine, mild Trendelenburg position. The area was exposed and cleansed with ChloraPrep, times two. Large sterile drape was used to cover the patient, with the site exposed, under sterile conditions including cap, face mask, sterile gown, and sterile gloves. On single attempt, the introducer needle was inserted with negative pressure in syringe and venous flash was obtained. The guide wire was then advanced without any restriction and the needle was removed. The dilator was used without any complications. Using Seldinger technique the 20 CM 7F catheter was advanced over the guide wire to a depth of 16 centimeters. The guide wire was removed. All ports were aspirated with dark venous blood return and flushed easily with sterile saline. All ports were capped. Antibiotic disc was placed around central line at puncture site. The central line was secured to the skin with two interrupted 2.0 silk sutures. The area was bandaged with sterile see-through central line bandage. RADIOLOGICAL DATA Ultrasound guidance was used to locate RIJ COMPLICATIONS: No apparent complications ESTIMATED BLOOD LOSS: Less than 1 cc. Hailee Neri MD Oct 14, 2016 12:09
--- NOTE | 2016-10-14 12:10 | PD.CONS ---
[facility] Service Critical Care Medicine Consult Requested By Dr. Blood Reason for Consult Septic shock A. fib with RVR Acute on chronic kidney failure Hyperkalemia Lactic acidosis Coagulopathy Bullous lesions bilateral lower extremity/cellulitis UTI Primary Care Physician Pelon Jiang M.D. History of Present Illness Patient is a 76-year-old male who is a resident of local intermediate with history of C. difficile colitis recently discharged from hospital (Sep 2016 ), Shewanella bacteremia, atrial fibrillation on Coumadin, coronary artery disease who was brought in via EMS with generalized weakness for the past week. He also reported having blisters predominantly to bilateral shins and redness to the right lateral thigh for 5 days. Patient had been receiving by mouth vancomycin in the intermediate for C. difficile colitis. Pertinent labs on admission WBC 11.7, Alb 1.3; Cr 4.22 (baseline 2-3). Tmax was 102. Patient was started on Cardizem infusion for A. fib with RVR. Because of hypotension and lactic acid of 4.9 patient was given 2.5 L normal saline boluses but despite this he remained hypotensive and Levophed was started and rapidly titrated up to 10 mics per minute. Patient has received Zosyn IV, Vanco IV x 1 doses in the ED and hospitalist had placed patient on ceftriaxone. I have started IV Flagyl to cover for C. difficile colitis. I evaluated the patient in the ED. He is currently on 10 mics per minute of Levophed, appears critically ill. He complained of right lower quadrant pain but CT of the abdomen pelvis is unremarkable. Infectious disease has changed Rocephin to cefepime, and we are continuing Flagyl. C. difficile studies ordered. Heart rate is showing improved control on Cardizem 10 mg/h Review of Systems ROS Limitations: Other (as per HPI) Past Family Social History Allergies: Coded Allergies: No Known Allergies (Verified , 10/13/16) Past Medical History Recurrent C. difficile colitis C Diff colitis in July 2016, September 2016 Coronary artery disease History of congestive heart failure Hyperlipidemia Hypertension Atrial fibrillation On coumadin Chronic kidney disease History of Cellulitis left arm Shewanella bacteremia Past Surgical History PCI with stent Cardiac catheterization Reported Medications Lopressor (Metoprolol Tartrate) 50 Mg Tab 25 Mg PO DAILY Vancomycin Inj (Vancomycin HCl) 500 Mg Inj 250 Mg PO QID Duoneb (Ipratropium-Albuterol Neb) 0.5-2.5 Mg/3 Ml Neb 1 Ampule INH Q4HR NEB PRN Coumadin (Warfarin) 3 Mg Tab 3 Mg PO DAILY@16 Potassium Chloride ER (Potassium Chloride) 10 Meq Tab 10 Meq PO DAILY Atorvastatin (Atorvastatin Calcium) 10 Mg Tab 10 Mg PO HS Omeprazole 20 Mg Tab 20 Mg PO DAILY Probiotic (Lactobacillus Acidophilus) 1 Cap Cap 1 Cap PO TIDAC Tamsulosin (Tamsulosin HCl) 0.4 Mg Cap 0.4 Mg PO HS Multivitamin Men (Multiple Vitamins W/ Minerals) 1 Tab Tab 1 Tab PO DAILY Active Ordered Medications Reviewed Family History Family history not contributing to this admission Social History Lives in SNF. Approximately [id number] history Quit alcohol many years ago used to consume Physical Exam Vital Signs Vital Signs Date Time Temp Pulse Resp B/P Pulse Ox O2 Delivery O2 Flow Rate FiO2 10/14/16 11:10 99.0 95 18 91/60 96 Nasal Cannula 2 10/14/16 10:42 99.3 94 20 82/54 95 Nasal Cannula 2 10/14/16 10:35 96 20 82/54 95 Nasal Cannula 2 10/14/16 10:15 93 Nasal Cannula 4.00 10/14/16 09:00 100.0 119 20 91/54 97 Nasal Cannula 2 10/14/16 06:00 146 35 88/49 96 Nasal Cannula 4 10/14/16 05:00 122 37 141/64 91 Nasal Cannula 4 10/14/16 04:00 105 19 94/55 98 Nasal Cannula 2 10/14/16 01:00 126 26 105/57 96 Nasal Cannula 2 10/14/16 00:00 134 25 85/48 94 Nasal Cannula 2 10/14/16 00:00 98 Nasal Cannula 2.00 10/13/16 23:00 128 24 99 Nasal Cannula 2 10/13/16 23:00 128 28 108/61 98 Nasal Cannula 2 10/13/16 21:55 18 93 Room Air 10/13/16 21:55 128 18 102/58 138 20 104/61 10/13/16 21:50 138 18 98 Nasal Cannula 2 10/13/16 21:35 98.6 118 18 102/58 96 Physical Exam GENERAL: 76-year-old male who appears critically ill and she was hypotensive on pressors SKIN: Skin in pain with open blisters bilateral lower extremity, erythema and cellulitis of the right lateral thigh HEAD: Atraumatic. Normocephalic. EYES: Pupils equal round and reactive. Conjunctivae pale ENT: Oral mucosa is dry. Uvula midline. Airway patent. NECK: Trachea midline. Supple neck CARDIOVASCULAR: Irregular heart rate in A. fib. No murmur appreciated. On Cardizem and Levophed infusion RESPIRATORY: Clear to auscultation. Breath sounds equal bilaterally. GASTROINTESTINAL: Abdomen soft, right lower quadrant tenderness without guarding NEUROLOGICAL: Awake and alert. Grossly non focal. Muscle strength appears adequate Laboratory Laboratory Tests Test 10/13/16 10/13/16 10/13/16 10/14/16 21:35 22:00 23:55 03:50 Urine Color YELLOW Urine Turbidity CLOUDY Urine pH 6.0 Urine Specific Campbell 1.011 Urine Protein TRACE Urine Glucose (UA) NEG Urine Ketones NEG Urine Occult Blood TRACE Urine Nitrite POS Urine Bilirubin NEG Urine Urobilinogen LESS THAN 2.0 Urine Leukocyte Esterase LARGE Urine RBC 14 Urine WBC Urine WBC Clumps MANY Urine Squamous Epithelial 2 Cells Urine Bacteria FEW Urine Hyaline Casts 3 Microscopic Urinalysis Comment CULTURE INDICATED White Blood Count 11.7 15.2 Red Blood Count 2.80 2.60 Hemoglobin 8.4 7.7 Hematocrit 24.7 22.8 Mean Corpuscular Volume 88.4 87.8 Mean Corpuscular Hemoglobin 30.2 29.4 Mean Corpuscular Hemoglobin 34.1 33.5 Concent Red Cell Distribution Width 17.5 17.2 Platelet Count 324 296 Mean Platelet Volume 8.8 8.6 Neutrophils (%) (Auto) 93.3 93.9 Lymphocytes (%) (Auto) 3.8 3.2 Monocytes (%) (Auto) 2.5 2.5 Eosinophils (%) (Auto) 0.2 0.3 Basophils (%) (Auto) 0.2 0.1 Neutrophils # (Auto) 10.9 14.2 Lymphocytes # (Auto) 0.4 0.5 Monocytes # (Auto) 0.3 0.4 Eosinophils # (Auto) 0.0 0.0 Basophils # (Auto) 0.0 0.0 CBC Comment DIFF FINAL DIFF FINAL Differential Comment Prothrombin Time 38.3 39.9 Prothromb Time International 3.3 3.4 Ratio Activated Partial 42.5 Thromboplast Time Sodium Level 129 130 Potassium Level 6.1 6.0 Chloride Level 97 99 Carbon Dioxide Level 24.6 24.1 Anion Gap 7 7 Blood Urea Nitrogen 60 56 Creatinine 4.27 4.22 Estimat Glomerular Filtration 14 14 Rate Random Glucose 99 91 Calcium Level 7.5 7.8 8.0 Magnesium Level 1.3 1.5 Total Bilirubin 0.6 0.8 Aspartate Amino Transf 58 42 (AST/SGOT) Alanine Aminotransferase 95 82 (ALT/SGPT) Alkaline Phosphatase 270 267 Total Creatine Kinase 23 Troponin I 0.02 0.02 B-Type Natriuretic Peptide 185 181 Total Protein 5.6 5.8 5.3 Albumin 1.4 1.3 Digoxin Level 0.7 Lactic Acid Level 1.2 Protein Corrected Calcium 8.5 Test 10/14/16 10/14/16 10/14/16 10/14/16 05:15 06:05 07:49 09:15 Blood Gas Puncture Site LT RADIAL Blood Gas Patient Temperature 98.6 Blood Gas HCO3 17 Blood Gas Base Excess -6.3 Blood Gas Oxygen Saturation 92 Arterial Blood pH 7.45 Arterial Blood Partial 25 Pressure CO2 Arterial Blood Partial 74 Pressure O2 Arterial Blood Oxygen Content 13.4 Arterial Blood 2.3 Carboxyhemoglobin Arterial Blood Methemoglobin 1.8 Blood Gas Hemoglobin 10.3 Oxygen Delivery Device NASAL CANNULA Blood Gas Liter Flow 4 Lactic Acid Level 4.9 Blood Type B POSITIVE B POSITIVE Antibody Screen NEGATIVE Blood Bank Comment Test 10/14/16 11:10 Sodium Level 132 Potassium Level 5.8 Chloride Level 101 Carbon Dioxide Level 22.5 Anion Gap 9 Blood Urea Nitrogen 55 Creatinine 4.03 Estimat Glomerular Filtration 15 Rate Random Glucose 115 Calcium Level 7.8 Total Bilirubin 0.9 Aspartate Amino Transf 57 (AST/SGOT) Alanine Aminotransferase 85 (ALT/SGPT) Alkaline Phosphatase 307 Total Protein 5.2 Albumin 1.4 Date/Time Procedure Status Source Growth 10/13/16 23:53 Aerobic Blood Culture Received Blood Peripheral Pending 10/13/16 23:53 Anaerobic Blood Culture Received Blood Peripheral Pending 10/13/16 21:35 Urine Culture Received Urine Clean Catch Pending Result Diagram: 10/14/16 0350 10/14/[address] abdomen pelvis without acute findings Septic Shock Reassessment Heart: Irregular Lungs: Clear Skin: Warm Peripheral Pulses: Weak Right Radial Weak Left Radial Capillary Refill: Sluggish Assessment and Plan Assessment and Plan ASSESSMENT: Septic shock A. fib with RVR Acute on chronic kidney failure Hyperkalemia Lactic acidosis Coagulopathy Bullous lesions bilateral lower extremity/cellulitis UTI Coronary artery disease History of congestive heart failure Chronic A. fib on Coumadin History of recurrent C. difficile colitis PLAN: NEURO: Acute Metabolic encephalopathy -As needed morphine for pain RESP: -Nasal cannula oxygen, DuoNeb q 6 PRN CV: Septic shock Atrial fibrillation with rapid ventricular response Chronic A. fib on Coumadin History of coronary artery disease -Normal saline IV fluid 2.5 L bolus followed by maintenance at 75 ml per hour -Cardizem infusion to keep heart rate less than 100, cardiology consulted -Currently on Levophed infusion to keep map above 65, and vasopressin to reduce Levophed requirement -Trend lactic acid check 2-D echo GI: Right lower quadrant abdominal pain Recurrent C. difficile colitis -IV Flagyl for C. difficile, nothing by mouth until clinically improved -IV Protonix for GI prophylaxis : Acute on chronic kidney disease Hypokalemia -Monitor renal function closely. Lambert catheter. Nephrology following -IV insulin followed by D50, bicarbonate and DuoNeb breathing treatment for hyperkalemia -If hyperkalemia is not improving may need hemodialysis -Avoid Kayexalate due to recurrent C. difficile colitis ID: Septic shock UTI Bilateral lower extremity cellulitis/bullous lesion of the lower extremities Recurrent C. difficile colitis -Follow up on blood and urine culture, antibiotics per ID currently on cefepime and Flagyl -Discussed with Dr. Plata, ID -Fluid resuscitation, trend lactic acid HEME: Coagulopathy from Coumadin -Monitor CBC, CMP, INR -2 units of FFP to facilitate central line placement ENDO: Hyperkalemia -Treatment as above, may need hemodialysis PROPH: -Bilateral lower extremity SCDs. INR supratherapeutic. IV Protonix for GI prophylaxis LINES: -Utilize peripheral IVs, right IJ central line placed Critical care time 90 minutes excluding procedures Code Status Full Discussed Condition With Hailee Blanco MD Oct 14, 2016 12:10 Hailee Neri MD Oct 14, 2016 12:10
[2016-10-14] MEDS ORDERED: MORPHINE SULFATE 4 MG/ML INJ IV PUSH ONE (12:15)
[2016-10-14] MEDS ORDERED: RESP: ALBUTEROL 2.5 MG/IPRATROPIUM 0.5 MG NEB (PRN) NEB (12:45)
[2016-10-14] MEDS ORDERED: DEXTROSE 50% IN WATER 50 ML VIAL(D50) IV PUSH ONE (12:45)
[2016-10-14] MEDS: CEFEPIME INJ 2,000 MG in SODIUM CHLORIDE 0.9% INJ 100 ML IV SCH (12:49)
--- NOTE | 2016-10-14 12:50 | RADRPT ---
EXAM DATE/TIME: 10/14/2016 12:18 [facility] COMPARISON: CHEST SINGLE AP, October 14, 2016, 5:26. INDICATIONS : Evaluate central line placement. MEDICAL HISTORY : Hypertension. Congestive heart failure. Gastroesophageal reflux disease. A-fib. CAD SURGICAL HISTORY : Coronary artery stent. ENCOUNTER: Initial ACUITY: 1 day PAIN SCORE: 0/10 LOCATION: Right chest FINDINGS: A single view of the chest demonstrates mild bibasilar infiltrates. The upper lung honeycutt are clear. The heart size is within normal limits. There is a right central line in place. There is no pneumotho rax. The right central line is in good position. The bony structures are stable.. CONCLUSION: 1. Right central line in good position. No pneumothorax. 2. Mild bibasilar infiltrates. Jorden Santiago MD on October 14, 2016 at 12:48 Board Certified Radiologist. This report was verified electronically.
[2016-10-14] MEDS: VASOPRESSIN INJ 40 UNITS in DEXTROSE 5% IN WATER 100ML INJ 98 ML IV SCH ×2 (13:04)
--- NOTE | 2016-10-14 13:42 | EKG ---
Date Performed: 10/14/2016 Time Performed: 05:17:56 PTAGE: 76 years EKG: ATRIAL FIBRILLATION WITH RAPID VENTRICULAR RESPONSE RIGHT BUNDLE BRANCH BLOCK LEFT POSTERIO R FASCICULAR BLOCK ABNORMAL ECG Compared to prior tracing no significant change PREVIOUS TRACING : 10/13/2016 22.25 DOCTOR: Susan Paulino Interpretating Date/Time 10/14/2016 13:40:44
--- NOTE | 2016-10-14 14:45 | EKG ---
Date Performed: 10/13/2016 Time Performed: 22:25:40 PTAGE: 76 years EKG: ATRIAL FIBRILLATION WITH RAPID VENTRICULAR RESPONSE RIGHT BUNDLE BRANCH BLOCK ABNORMAL ECG Compared to the PREVIOUS TRACING , there has been a marked increase in the ventricular response to the a trial fibrillation. With the increase in heart rate there has been some variation in the ST T wave ch anges associated with the conduction abnormality Clinical correlation remains important. PREVIOUS TRA CIN09/25/2016 09.14 DOCTOR: Susan Paulino Interpretating Date/Time 10/14/2016 14:44:39
[2016-10-14] MEDS ORDERED: CHLORHEXIDINE GLUCONATE 2 % 1 PACK (2 CLOTHS)(extra cloths) TOP PRN (19:15)
[2016-10-14 19:35] LABS: ANION GAP 8 MEQ/L (5-15); AST (GOT) 36 U/L (15-37); BICARBONATE 24.9 MEQ/L (21.0-32.0); BLOOD UREA NITROGEN 52 MG/DL (7-18); CHLORIDE 101 MEQ/L (98-107); GLOMERULAR FILTRATION RATE 15 ML/MIN (>89); POTASSIUM 5.3 MEQ/L (3.5-5.1); SODIUM (NA) 134 MEQ/L (136-145)
[2016-10-14 19:38] LABS: ALKALINE PHOSPHATASE 253 U/L (45-117); ALT (GPT) 69 U/L (12-78); TOTAL BILIRUBIN ADULT 0.6 MG/DL (0.2-1.0)
[2016-10-14] MEDS: CHLORHEXIDINE GLUCONATE 2 % 1 PACK (2 CLOTHS)(taper/protocol) TOP SCH (20:49)
[2016-10-15] VITALS (14 sets, daily range): BP systolic 97–119; BP diastolic 53–69; PULSE 71–110; RESP 12–24; TEMP 97.7–98.8; O2SAT 93–98
[2016-10-15] MEDS: metroNIDAZOLE 500 MG INJ 100 ML IV SCH ×2 (00:33→08:05)
[2016-10-15] MEDS: DILTIAZEM INJ 125 MG in SODIUM CHLORIDE 0.9% INJ 100 ML IV SCH (00:33)
[2016-10-15] MEDS: VASOPRESSIN INJ 40 UNITS in DEXTROSE 5% IN WATER 100ML INJ 98 ML IV SCH ×2 (00:33)
[2016-10-15 01:38] LABS: C. DIFF EPI 027 PRESUMPTIVE NEGATIVE (NEGATIVE); C. DIFF TOXIN PCR NEGATIVE (NEGATIVE)
[2016-10-15 06:10] LABS: AUTOMATED NEUTROPHIL # 12.8 TH/MM3 (1.8-7.7); BASOPHIL % 0.1 % (0.0-2.0); EOSINOPHIL % 0.3 % (0.0-4.0); LYMPH % 5.2 % (9.0-44.0); LYMPHOCYTE # 0.7 TH/MM3 (1.0-4.8); MEAN CELL VOLUME 88.8 FL (80.0-100.0); MEAN CORPUSCULAR HGB CONC 33.8 % (32.0-36.0); MONO % 4.5 % (0.0-8.0); NEUT % 89.9 % (16.0-70.0); PLATELET COUNT 250 TH/MM3 (150-450); RED BLOOD COUNT 2.14 MIL/MM3 (4.50-5.90); RED CELL DISTRIBUTION WIDTH 17.8 % (11.6-17.2); WHITE BLOOD COUNT 14.2 TH/MM3 (4.0-11.0)
[2016-10-15 06:12] LABS: HEMO FLAGS AUTO DIFF
[2016-10-15 06:44] LABS: BICARBONATE 22.3 MEQ/L (21.0-32.0); DIGOXIN 1.3 NG/ML (0.8-2.0); POTASSIUM 5.1 MEQ/L (3.5-5.1)
[2016-10-15 06:55] LABS: CALCIUM-PROTEIN CORRECTED 8.6 MG/DL (8.5-10.1)
[2016-10-15] MEDS: INSULIN ASPART SUPPLEMENTAL SCALE SQ SCH ×4 (07:00→20:46)
--- NOTE | 2016-10-15 07:52 | HHI.CCPN ---
Subjective Remarks/Hospital Course Patient is a 76-year-old male who is a resident of local [facility] with history of C. difficile colitis recently discharged from hospital (Sep 2016 ), Shewanella bacteremia, atrial fibrillation on Coumadin, coronary artery disease who was brought in via EMS with generalized weakness for the past week. He also reported having blisters predominantly to bilateral shins and redness to the right lateral thigh for 5 days. Patient had been receiving by mouth vancomycin in the halfway for C. difficile colitis. Pertinent labs on admission WBC 11.7, Alb 1.3; Cr 4.22 (baseline 2-3). Tmax was 102. Patient was started on Cardizem infusion for A. fib with RVR. Because of hypotension and lactic acid of 4.9 patient was given 2.5 L normal saline boluses but despite this he remained hypotensive and Levophed was started and rapidly titrated up to 10 mics per minute. Patient has received Zosyn IV, Vanco IV x 1 doses in the ED and hospitalist had placed patient on ceftriaxone. I have started IV Flagyl to cover for C. difficile colitis. I evaluated the patient in the ED. He is currently on 10 mics per minute of Levophed, appears critically ill. He complained of right lower quadrant pain but CT of the abdomen pelvis is unremarkable. Infectious disease has changed Rocephin to cefepime, and we are continuing Flagyl. C. difficile studies ordered. Heart rate is showing improved control on Cardizem 10 mg/h SUBJ 10/15: Patient remains on vasopressin 0.04 international units, hemoglobin has dropped to 8.4 stat 2 units PRBC ordered pending. No evidence of GI bleed INR was supratherapeutic yesterday repeat pending. Creatinine is improving 3.65 today, potassium has normalized to 5.1. Urine output 2.1 L in 24 hours Objective Vital Signs Date Time Temp Pulse Resp B/P Pulse Ox O2 Delivery O2 Flow Rate FiO2 10/15/16 06:00 84 10/15/16 04:00 98.6 17 101/56 98 10/14/16 20:15 Nasal Cannula 2.00 Intake and Output 10/14/16 10/14/16 10/15/16 08:00 16:00 00:00 Intake Total 180 ml 2661 ml Output Total 1000 ml 1150 ml Balance -820 ml 1511 ml Result Diagram: 10/15/16 0500 10/15/[address] abdomen pelvis without acute findings Objective Remarks GENERAL: 76-year-old male who appears critically ill and hypotensive on vasopressin SKIN: Skin in pain with open blisters bilateral lower extremity, erythema and cellulitis of the right lateral thigh HEAD: Atraumatic. Normocephalic. EYES: Pupils equal round and reactive. Conjunctivae pale ENT: Oral mucosa is dry. Uvula midline. Airway patent. NECK: Trachea midline. Supple neck CARDIOVASCULAR: Irregular heart rate in A. fib. No murmur appreciated. On Cardizem and Levophed infusion RESPIRATORY: Clear to auscultation. Breath sounds equal bilaterally. GASTROINTESTINAL: Abdomen soft, right lower quadrant tenderness without guarding NEUROLOGICAL: Awake and alert. Grossly non focal. Muscle strength appears adequate A/P Assessment and Plan ASSESSMENT: Septic shock A. fib with RVR Acute on chronic kidney failure Hyperkalemia Lactic acidosis Coagulopathy Bullous lesions bilateral lower extremity/cellulitis UTI Coronary artery disease History of congestive heart failure Chronic A. fib on Coumadin History of recurrent C. difficile colitis PLAN: NEURO: Acute Metabolic encephalopathy -As needed morphine for pain, neuro status improving RESP: -Nasal cannula oxygen, DuoNeb q 6 PRN CV: Septic shock Atrial fibrillation with rapid ventricular response Chronic A. fib on Coumadin History of coronary artery disease -Normal saline IV fluid 2.5 L bolus on 10/14/16 followed by maintenance at 84 ml per hour -DC Cardizem infusion and start Cardizem 30 mg by mouth 4 times a day, cardiology consulted -Currently on Vasopressin infusion to keep map above 65 -Trend lactic acid check 2-D echo GI: Right lower quadrant abdominal pain Recurrent C. difficile colitis -IV Flagyl for C. difficile, nothing by mouth until clinically improved -IV Protonix for GI prophylaxis -Check stool for Hemoccult, consult GI if positive : Acute on chronic kidney disease Hyperkalemia -Monitor renal function closely. Lambert catheter. Nephrology following -IV insulin followed by D50, bicarbonate and DuoNeb breathing treatment for hyperkalemia 10/14 -Potassium has normalized, no indication for hemodialysis at this time -Avoid Kayexalate due to recurrent C. difficile colitis ID: Septic shock UTI Bilateral lower extremity cellulitis/bullous lesion of the lower extremities Recurrent C. difficile colitis -Follow up on blood and urine culture, antibiotics per ID currently on cefepime and Flagyl -Discussed with Dr. Plata, ID -Fluid resuscitation, trend lactic acid HEME: Coagulopathy from Coumadin -Monitor CBC, CMP, INR -2 units of FFP 10/14 to facilitate central line placement ENDO: Hyperkalemia -Treatment as above PROPH: -Bilateral lower extremity SCDs. INR supratherapeutic. IV Protonix for GI prophylaxis LINES: -Right IJ central line placed Critical care time 40 minutes excluding procedures Hailee Neri MD Oct 15, 2016 07:52
[2016-10-15 08:00] LABS: PLATELET ESTIMATE SMEAR NORMAL (NORMAL); PLATELET MORPHOLOGY NORMAL (NORMAL); SCAN/DIFF AUTO DIFF CONFIRMED; TOXIC GRANULATION 1+ (NORMAL)
[2016-10-15] MEDS: SODIUM CHLOR 0.9% 1000 ML INJ 1,000 ML IV SCH (08:03)
[2016-10-15] MEDS: ALBUMIN HUMAN 25% 25 GM/100 ML BAGP IV SCH ×2 (08:04→20:46)
[2016-10-15] MEDS: SODIUM CHLORIDE 0.9% FLUSH 5 ML FLUSH FLUSH SCH ×2 (08:04→20:46)
[2016-10-15] MEDS: DILTIAZEM HCL 30 MG TAB PO SCH ×4 (08:22→20:47)
[2016-10-15 09:19] LABS: INTERNATIONAL NORMALIZED RATIO 3.3 RATIO
[2016-10-15] MEDS: CEFEPIME INJ 2,000 MG in SODIUM CHLORIDE 0.9% INJ 100 ML IV SCH (10:25)
[2016-10-15] MEDS: ACETAMINOPHEN/HYDROcodone 325 MG/5 MG TAB PO PRN (10:25)
--- NOTE | 2016-10-15 10:32 | HHI.NPPN ---
Subjective General Problems: Anemia, Edema Renal Failure: Chronic, Acute Interval History Pt is awake, reporting abdominal pain. Renal function is better. Still on Vasopressin. He is receiving PRBC transfusion during my exam. (Monika Martinez) Review of Systems General Constitutional: Fatigue (Monika Martinez) Gastrointestinal Gastrointestinal: Abdominal Pain, Nausea & Vomiting (Monika Martinez) Objective Data Data 10/14/16 10/15/16 19:00 07:00 Intake Total 180 ml 3816 ml Output Total 1000 ml 1150 ml Balance -820 ml 2666 ml Intake Oral 180 ml IV Total 3816 ml Output Urine Total 1000 ml 1150 ml # Bowel Movements 1 Vital Signs Date Time Temp Pulse Resp B/P Pulse Ox O2 Delivery O2 Flow Rate FiO2 10/15/16 10:00 110 10/15/16 08:47 98 Nasal Cannula 2.00 10/15/16 08:00 97.8 83 20 102/53 98 10/15/16 08:00 83 10/15/16 06:00 84 10/15/16 04:00 98.6 81 17 101/56 98 10/15/16 04:00 81 10/15/16 02:00 76 10/15/16 00:00 98.0 71 12 97/55 98 10/15/16 00:00 71 10/14/16 22:00 72 10/14/16 20:15 98 Nasal Cannula 2.00 10/14/16 20:00 97.9 80 17 90/52 100 10/14/16 20:00 80 10/14/16 18:00 88 10/14/16 16:00 98.2 88 22 85/57 99 10/14/16 16:00 88 10/14/16 15:06 98.2 69 22 98/56 97 Nasal Cannula 2 10/14/16 14:40 98.2 86 20 91/58 95 Nasal Cannula 2 10/14/16 13:17 98.1 102 20 95/53 93 Nasal Cannula 2 10/14/16 11:10 99.0 95 18 91/60 96 Nasal Cannula 2 10/14/16 10:42 99.3 94 20 82/54 95 Nasal Cannula 2 10/14/16 10:35 96 20 82/54 95 Nasal Cannula 2 (Monika Martinez) -: 10/15/16 0500 10/15/16 0500 Imaging Last 72 hours Impressions Chest X-Ray 10/14/16 0000 Signed Impressions: Service Date/Time: Friday, October 14, 2016 12:18 - CONCLUSION: 1. Right central line in good position. No pneumothorax. 2. Mild bibasilar infiltrates. Jorden Santiago MD Chest X-Ray 10/14/16 0000 Signed Impressions: Service Date/Time: Friday, October 14, 2016 05:26 - CONCLUSION: No significant change mild consolidation and small effusion of the left lung base. Daron Crawley MD Abdomen/Pelvis CT 10/14/16 0000 Signed Impressions: Service Date/Time: Friday, October 14, 2016 10:14 - CONCLUSION: 1. No evidence of colitis or colonic wall thickening. 2. Solid organs are unremarkable except for a bilobed cyst midpole left kidney. No evidence of renal obstruction. Diffuse body wall edema. Guevara Swain MD Chest X-Ray 10/13/[id number] Signed Impressions: Service Date/Time: Thursday, October 13, 2016 22:02 - CONCLUSION: 1. Mild basilar airspace disease. No pneumothorax. Philip Tanner MD Tubes & Lines: [place] Tubes & Lines Comment TLC right IJ Drip Comment Vasopressin (Monika Martinez B. REEL SYSTEM OPERATOR) Physical Exam General Appearance: No Acute Distress, Comfortable, Malnourished (Monika Martinez B. REEL SYSTEM OPERATOR) Eyes Eye Exam: Pupils Equal (Monika Martinez BJoselyn REEL SYSTEM OPERATOR) Throat Throat Exam: Oral Mucosa [place] & Moist Throat Remarks very poor dentition/broken teeth (Monika Martinez B. REEL SYSTEM OPERATOR) Neck Neck Exam: Neck Supple (Monika Martinez B. REEL SYSTEM OPERATOR) Pulmonary Resp Exam: Clear Bilaterally, Breath Sounds Equal (Monika Martinez B. REEL SYSTEM OPERATOR) Cardiology CV Exam: Good Perfusion, Irregular (Monika Martinez B. REEL SYSTEM OPERATOR) Gastrointestinal/Abdomen GI Exam: Soft, Non-Tender, Bowel Sounds Present, Positive Bowel Movement ( Monika Martinez B. REEL SYSTEM OPERATOR) Genitourinary Exam: Clear Urine (Monika Martinez BJoselyn REEL SYSTEM OPERATOR) Musculoskeletal MS Exam: Joints Intact, Normal Tone (Monika Martinez) Integumentary Skin Remarks blisters to lower extremities, dressing inplace bilaterally (Monika Martinez) Extremeties Extremities Exam: Pedal Pulses Palpable, Pitting Edema, Dependent Edema ( Monika Martinez) Neurologic Neuro Exam: Alert, Awake, Oriented, Speech Clear, Moving All Extremities ( Monika Martinez) Psychiatric Psych Exam: Appropriate Responses (Monika Martinez) Assessment/Plan Discussed Condition With: Patient Assessment Summary: Anemia of CKD, Hypotension Problem List: (1) RAVEN (acute kidney injury) Plan: Multifactorial: he had obstructive uropathy on arrival, which was corrected with burgos placement now having good urine output also thought to ave prerenal azotemia due to sepsis, renal hypoperfusion K has improved no evidence of acidosis hypotensive today on Pressors, continue and maintain MAP > 65 mmHg he is on IVF but developing lower extremity edema; will stop at this time, he is tolerating oral fluids give a bumex x 2 doses daily metabolic profile monitor urine output, burgos catheter care avoid nephrotoxins (2) Severe sepsis Plan: ? urosepsis, Blood cultures with 4/4 growing Gram negative rods ID following continue antimicrobial therapy , on cefepime and IV flagyl CT abd/pelvis without contrast negative for colitis repeat C diff negative (3) Atrial fibrillation with RVR Plan: rate controlled, off Cardizem gtt and transitioned to oral dosage (4) Hyperkalemia Plan: due to diminished renal clearance repeat has improved, continue to monitor (Monika Martinez) Plan patient was seen and examined. Renal function has improved. Continue to monitor. Has developed lower extremity edema, will stop IVF, order diuretics. Blood transfusion ordered. (Ruben Callahan MD) Monika Martinez Oct 15, 2016 10:32 Ruben Callahan MD Oct 16, 2016 10:52
[2016-10-15] MEDS ORDERED: BUMETANIDE INJ 1 MG/4 ML VIAL IV PUSH ONE ×2 (11:30→19:00)
--- NOTE | 2016-10-15 12:11 | HHI.PR ---
Subjective Interval History alert, verbal, c/o abdominal pain. Still on Vasopressin. receiving PRBC transfusion Vitals/Results Intake & Output 10/14/16 10/14/16 10/15/16 15:00 23:00 07:00 Intake Total 180 ml 2661 ml 1155 ml Output Total 1000 ml 1150 ml Balance -820 ml 1511 ml 1155 ml Intake Oral 180 ml IV Total 2661 ml 1155 ml Output Urine Total 1000 ml 1150 ml # Bowel Movements 1 Vital Signs Vital Signs Date Time Temp Pulse Resp B/P Pulse Ox O2 Delivery O2 Flow Rate FiO2 10/15/16 11:28 20 10/15/16 10:00 110 10/15/16 08:47 98 Nasal Cannula 2.00 10/15/16 08:00 97.8 83 20 102/53 98 10/15/16 08:00 83 10/15/16 06:00 84 10/15/16 04:00 98.6 81 17 101/56 98 10/15/16 04:00 81 10/15/16 02:00 76 10/15/16 00:00 98.0 71 12 97/55 98 10/15/16 00:00 71 10/14/16 22:00 72 10/14/16 20:15 98 Nasal Cannula 2.00 10/14/16 20:00 97.9 80 17 90/52 100 10/14/16 20:00 80 10/14/16 18:00 88 10/14/16 16:00 98.2 88 22 85/57 99 10/14/16 16:00 88 10/14/16 15:06 98.2 69 22 98/56 97 Nasal Cannula 2 10/14/16 14:40 98.2 86 20 91/58 95 Nasal Cannula 2 10/14/16 13:17 98.1 102 20 95/53 93 Nasal Cannula 2 CBC/BMP: 10/15/16 0500 10/15/16 0500 Lab Results Laboratory Tests Test 10/14/16 10/14/16 10/14/16 10/15/16 16:00 17:35 19:15 05:00 Nasal Screen MRSA (PCR) NEGATIVE Sodium Level 134 MEQ/L 135 MEQ/L Potassium Level 5.3 MEQ/L 5.1 MEQ/L Chloride Level 101 MEQ/L 104 MEQ/L Carbon Dioxide Level 24.9 MEQ/L 22.3 MEQ/L Anion Gap 8 MEQ/L 9 MEQ/L Blood Urea Nitrogen 52 MG/DL 52 MG/DL Creatinine 3.94 MG/DL 3.65 MG/DL Estimat Glomerular Filtration 15 ML/MIN 16 ML/MIN Rate Random Glucose 106 MG/DL 130 MG/DL Calcium Level 7.5 MG/DL 7.4 MG/DL Total Bilirubin 0.6 MG/DL Aspartate Amino Transf 36 U/L (AST/SGOT) Alanine Aminotransferase 69 U/L (ALT/SGPT) Alkaline Phosphatase 253 U/L Total Protein 5.2 GM/DL 5.0 GM/DL Albumin 1.5 GM/DL Stool C. difficile Toxin (PCR) NEGATIVE Stl C. difficile Toxin PRESUMPTIVE Epiderm 027 NEGATIVE White Blood Count 14.2 TH/MM3 Red Blood Count 2.14 MIL/MM3 Hemoglobin 6.4 GM/DL Hematocrit 19.0 % Mean Corpuscular Volume 88.8 FL Mean Corpuscular Hemoglobin 30.0 PG Mean Corpuscular Hemoglobin 33.8 % Concent Red Cell Distribution Width 17.8 % Platelet Count 250 TH/MM3 Mean Platelet Volume 8.7 FL Neutrophils (%) (Auto) 89.9 % Lymphocytes (%) (Auto) 5.2 % Monocytes (%) (Auto) 4.5 % Eosinophils (%) (Auto) 0.3 % Basophils (%) (Auto) 0.1 % Neutrophils # (Auto) 12.8 TH/MM3 Lymphocytes # (Auto) 0.7 TH/MM3 Monocytes # (Auto) 0.6 TH/MM3 Eosinophils # (Auto) 0.0 TH/MM3 Basophils # (Auto) 0.0 TH/MM3 CBC Comment AUTO DIFF Differential Comment AUTO DIFF CONFIRMED Toxic Granulation 1+ Platelet Estimate NORMAL Platelet Morphology Comment NORMAL Protein Corrected Calcium 8.6 MG/DL Digoxin Level 1.3 NG/ML Test 10/15/16 10/15/16 06:56 08:25 Blood Type B POSITIVE Crossmatch Leukocyte-Reduced Red Blood Cells Blood Bank Comment Prothrombin Time 38.0 SEC Prothromb Time International 3.3 RATIO Ratio Microbiology Microbiology 10/15/16 Stool Occult Blood (ROBERTH), Received Pending Physical Exam General General Appearance: No Acute Distress, Comfortable, Malnourished Eyes Eye Exam: Pupils Equal Throat Throat Exam: Oral Mucosa [place] & Moist Neck Neck Exam: Neck Supple Pulmonary Resp Exam: Clear Bilaterally, Breath Sounds Equal Cardiology CV Exam: Good Perfusion, Irregular, Murmur Gastrointestinal/Abdomen GI Exam: Soft, Non-Tender, Bowel Sounds Present, Positive Bowel Movement Genitourinary Exam: Clear Urine Musculoskeletal MS Exam: Joints Intact, Normal Tone Extremeties Extremities Exam: Pedal Pulses Palpable, Pitting Edema, Dependent Edema Neurologic Neuro Exam: Alert, Awake, Oriented, Speech Clear, Moving All Extremities Psychiatric Psych Exam: Appropriate Responses Assessment/Plan Assessment/Plan ASSESSMENT AND PLAN . Sepsis/Septic shock . Severe anemia, transfusion In progress . Atrial fibrillation with RVR . Acute kidney injury with renal insufficiency . Hyperkalemia . Coronary artery disease . UTI . Severe protein calorie malnutrition . Dehydration Management. Continue pressors Keep hemoglobin above 8 Manager Of Selection And Assessment , Cardiology, infectious disease, needle leader following Empiric antibiotics Discussed with patient Discussed with nurse Bassem Delgado MD Oct 15, 2016 12:11
--- NOTE | 2016-10-15 12:41 | HHI.IDPN ---
Subjective Subjective Remarks is a 76 y/o CM resident of local [facility] who was brought into the ED at [facility] [address]. Prior history of Shewanella bacteremia, Cdiff Colitis , Left arm cellulitis in Jul 2016. PMHx is also significant for Afib on coumadin and digoxin. ID following for Mment of Septic Shock, h/o Cdiff, Possible complicated UTI, GNR bacteremia. Overnight events reviewed. H/H low this am. PRBC transfusions. No diarrhea No rash UO ok. Urine still cloudy but much better than yday. Antibiotics Cefepime IV Flagyl IV Lines Line sites with no e/o infection Past Medical History reviewed Allergies: Coded Allergies: No Known Allergies (Verified , 10/13/16) Objective . Vital Signs Date Time Temp Pulse Resp B/P Pulse Ox O2 Delivery O2 Flow Rate FiO2 10/15/16 11:28 20 10/15/16 10:00 110 10/15/16 08:47 98 Nasal Cannula 2.00 10/15/16 08:00 97.8 83 20 102/53 98 10/15/16 08:00 83 10/15/16 06:00 84 10/15/16 04:00 98.6 81 17 101/56 98 10/15/16 04:00 81 10/15/16 02:00 76 10/15/16 00:00 98.0 71 12 97/55 98 10/15/16 00:00 71 10/14/16 22:00 72 10/14/16 20:15 98 Nasal Cannula 2.00 10/14/16 20:00 97.9 80 17 90/52 100 10/14/16 20:00 80 10/14/16 18:00 88 10/14/16 16:00 98.2 88 22 85/57 99 10/14/16 16:00 88 10/14/16 15:06 98.2 69 22 98/56 97 Nasal Cannula 2 10/14/16 14:40 98.2 86 20 91/58 95 Nasal Cannula 2 10/14/16 13:17 98.1 102 20 95/53 93 Nasal Cannula 2 10/14/16 10/14/16 10/15/16 15:00 23:00 07:00 Intake Total 180 ml 2661 ml 1155 ml Output Total 1000 ml 1150 ml Balance -820 ml 1511 ml 1155 ml Intake Oral 180 ml IV Total 2661 ml 1155 ml Output Urine Total 1000 ml 1150 ml # Bowel Movements 1 . Laboratory Tests Test 10/13/16 10/14/16 10/15/16 22:00 03:50 05:00 White Blood Count 11.7 TH/MM3 15.2 TH/MM3 14.2 TH/MM3 Red Blood Count 2.80 MIL/MM3 2.60 MIL/MM3 2.14 MIL/MM3 Hemoglobin 8.4 GM/DL 7.7 GM/DL 6.4 GM/DL Hematocrit 24.7 % 22.8 % 19.0 % Mean Corpuscular Volume 88.4 FL 87.8 FL 88.8 FL Mean Corpuscular Hemoglobin 30.2 PG 29.4 PG 30.0 PG Mean Corpuscular Hemoglobin 34.1 % 33.5 % 33.8 % Concent Red Cell Distribution Width 17.5 % 17.2 % 17.8 % Platelet Count 324 TH/MM3 296 TH/MM3 250 TH/MM3 Mean Platelet Volume 8.8 FL 8.6 FL 8.7 FL Neutrophils (%) (Auto) 93.3 % 93.9 % 89.9 % Lymphocytes (%) (Auto) 3.8 % 3.2 % 5.2 % Monocytes (%) (Auto) 2.5 % 2.5 % 4.5 % Eosinophils (%) (Auto) 0.2 % 0.3 % 0.3 % Basophils (%) (Auto) 0.2 % 0.1 % 0.1 % Neutrophils # (Auto) 10.9 TH/MM3 14.2 TH/MM3 12.8 TH/MM3 Lymphocytes # (Auto) 0.4 TH/MM3 0.5 TH/MM3 0.7 TH/MM3 Monocytes # (Auto) 0.3 TH/MM3 0.4 TH/MM3 0.6 TH/MM3 Eosinophils # (Auto) 0.0 TH/MM3 0.0 TH/MM3 0.0 TH/MM3 Basophils # (Auto) 0.0 TH/MM3 0.0 TH/MM3 0.0 TH/MM3 CBC Comment DIFF FINAL DIFF FINAL AUTO DIFF Differential Comment AUTO DIFF CONFIRMED Toxic Granulation 1+ Platelet Estimate NORMAL Platelet Morphology Comment NORMAL Laboratory Tests Test 10/13/16 10/13/16 10/14/16 10/14/16 22:00 23:55 03:50 06:05 Sodium Level 129 MEQ/L 130 MEQ/L Potassium Level 6.1 MEQ/L 6.0 MEQ/L Chloride Level 97 MEQ/L 99 MEQ/L Carbon Dioxide Level 24.6 MEQ/L 24.1 MEQ/L Anion Gap 7 MEQ/L 7 MEQ/L Blood Urea Nitrogen 60 MG/DL 56 MG/DL Creatinine 4.27 MG/DL 4.22 MG/DL Estimat Glomerular Filtration 14 ML/MIN 14 ML/MIN Rate Random Glucose 99 MG/DL 91 MG/DL Calcium Level 7.5 MG/DL 7.8 MG/DL 8.0 MG/DL Magnesium Level 1.3 MG/DL 1.5 MG/DL Total Bilirubin 0.6 MG/DL 0.8 MG/DL Aspartate Amino Transf 58 U/L 42 U/L (AST/SGOT) Alanine Aminotransferase 95 U/L 82 U/L (ALT/SGPT) Alkaline Phosphatase 270 U/L 267 U/L Total Creatine Kinase 23 U/L Troponin I 0.02 NG/ML 0.02 NG/ML B-Type Natriuretic Peptide 185 PG/ML 181 PG/ML Total Protein 5.6 GM/DL 5.8 GM/DL 5.3 GM/DL Albumin 1.4 GM/DL 1.3 GM/DL Lactic Acid Level 1.2 mmol/L 4.9 mmol/L Protein Corrected Calcium 8.5 MG/DL Test 10/14/16 10/14/16 10/14/16 10/15/16 11:10 11:35 17:35 05:00 Sodium Level 132 MEQ/L 134 MEQ/L 135 MEQ/L Potassium Level 5.8 MEQ/L 5.3 MEQ/L 5.1 MEQ/L Chloride Level 101 MEQ/L 101 MEQ/L 104 MEQ/L Carbon Dioxide Level 22.5 MEQ/L 24.9 MEQ/L 22.3 MEQ/L Anion Gap 9 MEQ/L 8 MEQ/L 9 MEQ/L Blood Urea Nitrogen 55 MG/DL 52 MG/DL 52 MG/DL Creatinine 4.03 MG/DL 3.94 MG/DL 3.65 MG/DL Estimat Glomerular Filtration 15 ML/MIN 15 ML/MIN 16 ML/MIN Rate Random Glucose 115 MG/DL 106 MG/DL 130 MG/DL Calcium Level 7.8 MG/DL 7.5 MG/DL 7.4 MG/DL Total Bilirubin 0.9 MG/DL 0.6 MG/DL Aspartate Amino Transf 57 U/L 36 U/L (AST/SGOT) Alanine Aminotransferase 85 U/L 69 U/L (ALT/SGPT) Alkaline Phosphatase 307 U/L 253 U/L Total Protein 5.2 GM/DL 5.2 GM/DL 5.0 GM/DL Albumin 1.4 GM/DL 1.5 GM/DL Lactic Acid Level 2.0 mmol/L Protein Corrected Calcium 8.6 MG/DL Microbiology Date/Time Procedure Status Source Growth 10/13/16 21:35 Urine Culture - Preliminary Resulted Urine Clean Catch Gram Negative Ke 10/13/16 23:50 Aerobic Blood Culture - Preliminary Resulted Blood Peripheral Gram Negative Ke 10/13/16 23:50 Anaerobic Blood Culture - Preliminary Resulted Gram Negative Ke 10/13/16 23:53 Aerobic Blood Culture - Preliminary Resulted Blood Peripheral Gram Negative Ke 10/13/16 23:53 Anaerobic Blood Culture - Preliminary Resulted Gram Negative Ke 10/15/16 09:30 Stool Occult Blood (ROBERTH) Received Stool Stool Pending Imaging Last Impressions Chest X-Ray 10/14/16 0000 Signed Impressions: Service Date/Time: Friday, October 14, 2016 12:18 - CONCLUSION: 1. Right central line in good position. No pneumothorax. 2. Mild bibasilar infiltrates. Jorden Santiago MD Abdomen/Pelvis CT 10/14/16 0000 Signed Impressions: Service Date/Time: Friday, October 14, 2016 10:14 - CONCLUSION: 1. No evidence of colitis or colonic wall thickening. 2. Solid organs are unremarkable except for a bilobed cyst midpole left kidney. No evidence of renal obstruction. Diffuse body wall edema. Guevara Swain MD Physical Exam GENERAL: This is a well-nourished, well-developed patient, in no apparent distress. SKIN: Skin with blisters on bilateral LE, upper back. Erythema on right thigh. Bilateral LE edema right more than left with mild erythema. Ecchymosis. HEAD: Atraumatic. Normocephalic. No temporal or scalp tenderness. EYES: Pupils equal round and reactive. Extraocular motions intact. No scleral icterus. No injection or drainage. ENT: Nose without bleeding, purulent drainage or septal hematoma. Throat without erythema, tonsillar hypertrophy or exudate. Uvula midline. Airway patent. NECK: Trachea midline. Supple, nontender, no meningeal signs. CARDIOVASCULAR: HS audible. No murmur appreciated. RESPIRATORY: Clear to auscultation. Breath sounds equal bilaterally. No wheezes , rales, or rhonchi. GASTROINTESTINAL: Abdomen soft, non-tender, nondistended. No hepato-splenomegaly , or palpable masses. No guarding. MUSCULOSKELETAL: per skin. No joint effusions Sacrum: skin erythema but no breaks noted. NEUROLOGICAL: Awake and alert. Grossly non focal Psych: cooperative IV line sites with no e/o infection. Assessment & Plan Remarks Septic Shock present on admission. GNR bacteremia GNR complicated UTI with urinary obstruction. h/o recurrent Cdiff possible Cdiff Colitis due to abdominal pain and tenderness. Bilateral LE cellulitis with blisters ? Strep. Acute renal failure: sepsis, prerenal, urinary obstruction. Elevated LFTs: sepsis related. Urinary obstruction Hypoalbuminemia: ? nutritional Recs: Continue Cefepime IV (prior multiple admissions needs broad spectrum). renal dose adjusted by me. Dc Flagyl IV. Change to oral flagyl (better for cdiff for local availability) Appreciate Nephrology consult. CT non contrast abdomen: no colitis, no stone or hydronephrosis. Follow cultures Follow clinically. d/w RN, pt Karla Plata MD Oct 15, 2016 12:41
[2016-10-15] MEDS: metroNIDAZOLE 500 MG TAB PO SCH ×2 (14:22→20:47)
[2016-10-15] MEDS ORDERED: DIGOXIN 0.5 MG/2 ML VIAL IV PUSH ONE (16:00)
[2016-10-15 16:27] LABS: HEMATOCRIT 25.2 % (39.0-51.0); REVIEW FLAG FINAL
--- NOTE | 2016-10-15 21:01 | EC ---
Study Study Date:10/15/2016 STUDY CONCLUSIONS SUMMARY - Left ventricle: The cavity size was normal. Wall thickness was normal. Systolic function was normal. The estimated ejection fraction was 60%. Wall motion was normal; there were no regional wall motion abnormalities. - Aortic valve: Mild to moderate regurgitation. - Mitral valve: Mild to moderate regurgitation. - Left atrium: The atrium was mildly dilated. - Right ventricle: The cavity size was mildly dilated. Wall thickness was normal. - Tricuspid valve: Mild regurgitation. - Pulmonary arteries: Systolic pressure was mildly increased. PA peak pressure: 46mm Hg (S). If LV function is below 40, please consider prescribing an ACEI or ARB or document rationale for non-use. PROCEDURE DATA STUDY STATUS: Elective. Procedure: Transthoracic echocardiography. Image quality was good. Scanning was performed from the parasternal, apical, and subcostal acoustic windows. Study completion: The patient tolerated the procedure well. Transthoracic echocardiography. M-mode, complete 2D, complete spectral Doppler, and color Doppler. Height: Height: 71in. Weight: Weight: 199.6lb. Body mass index: BMI: 27.9kg/m^2. Body surface area: BSA: 2.11m^2. Patient status: Inpatient. CARDIAC ANATOMY LEFT VENTRICLE: The cavity size was normal. Wall thickness was normal. Systolic function was normal. The estimated ejection fraction was 60%. Wall motion was normal; there were no regional wall motion abnormalities. AORTIC VALVE: Trileaflet; mildly thickened, mildly calcified leaflets. Doppler: Transvalvular velocity was within the normal range. There was no stenosis. Mild to moderate regurgitation. Valve area: 0.81cm^2(VTI). Indexed valve area: 0.38cm^2/m^2 (VTI). Valve area: 0.74cm^2 (Vmax). Indexed valve area: 0.35cm^2/m^2 (Vmax). Mean gradient: 8mm Hg (S). Peak gradient: 14mm Hg (S). AORTA: Aortic root: The aortic root was normal in size. MITRAL VALVE: Structurally normal valve. Doppler: Transvalvular velocity was within the normal range. There was no evidence for stenosis. Mild to moderate regurgitation. Peak gradient: 4mm Hg (D). LEFT ATRIUM: The atrium was mildly dilated. RIGHT VENTRICLE: The cavity size was mildly dilated. Wall thickness was normal. PULMONIC VALVE: Doppler: Transvalvular velocity was within the normal range. There was no evidence for stenosis. No regurgitation. TRICUSPID VALVE: Structurally normal valve. Doppler: Transvalvular velocity was within the normal range. Mild regurgitation. PULMONARY ARTERY: The main pulmonary artery was normal-sized. Systolic pressure was mildly increased. RIGHT ATRIUM: The atrium was normal in size. PERICARDIUM: There was no pericardial effusion. SYSTEMIC VEINS: Inferior vena cava: The vessel was normal in size. Patient weight: 199.6lb _Ejection fraction:_ 65-75% _Fractional shortening:_ 32% up to 5Kg 5-11.5Kg 11.6-22.9Kg 23-45Kg 45-57Kg Aortic Root 7-13 <17 13-22 17-27 17-27 LA diam 6-13 <23 24-38 33-47 37-40 RVID 10-17 7-15 7-15 7-18 8-17 LVIDd 12-22 <32 24-38 33-47 37-40 LVPW 2-4 3-6 5-7 6-8 7-8 IVS 2-4 3-6 5-7 6-8 7-8 BASIC MEASUREMENTS ADULT NORMAL Left ventricle LV internal dimension, ED, chordal *55.2 mm 43-52 level, PLAX LV internal dimension, ES, chordal 37.7 mm 23-38 level, PLAX Fractional shortening, chordal level, 32 % >29 PLAX LV posterior wall thickness, ED 8.3 mm IVS/LVPW ratio, ED 1.01 <1.3 Ventricular septum Septal thickness, ED 8.4 mm Aortic valve Leaflet separation *14 mm 15-26 Aorta Root diameter, ED 27 mm Left atrium Anterior-posterior dimension 47 mm Anterior-posterior dimension index *2.23 cm/m^2 <2.2 BASIC MEASUREMENTS ADULT NORMAL Aortic valve Leaflet separation *14 mm 15-26 DOPPLER MEASUREMENTS ADULT NORMAL Main pulmonary artery Pressure, S *46 mm Hg =30 Aortic valve Peak velocity, S 190 cm/s Mean velocity, S 127 cm/s VTI, S 30.9 cm Mean gradient, S 8 mm Hg Peak gradient, S 14 mm Hg Valve area, VTI 0.81 cm^2 Valve area index, VTI 0.38 cm^2/m^2 Valve area, Vmax 0.74 cm^2 Valve area index, Vmax 0.35 cm^2/m^2 Regurgitant velocity, ED 369 cm/s Regurgitant deceleration 2210 cm/s^2 Regurgitant pressure half-time 494 ms Regurgitant gradient, ED 54 mm Hg Mitral valve Peak E-wave velocity 101 cm/s Peak gradient, D 4 mm Hg Tricuspid valve Regurgitant peak velocity 294 cm/s Peak RV-RA gradient, S 35 mm Hg Maximal regurgitant velocity 294 cm/s Systemic veins Estimated CVP 10 mm Hg Right ventricle RV pressure, S *48 mm Hg <30 Pulmonic valve Peak velocity, S 71.1 cm/s LEGEND: Mean values are shown as u=mean value. Asterisk (*) welsh values outside specified normal range. Prepared and signed by Stephanie Blanc [id number]
[2016-10-16] VITALS (15 sets, daily range): BP systolic 115–135; BP diastolic 59–78; PULSE 86–111; RESP 14–24; TEMP 97.7–98.6; O2SAT 91–96
[2016-10-16] MEDS: CHLORHEXIDINE GLUCONATE 2 % 1 PACK (2 CLOTHS)(taper/protocol) TOP SCH (04:00)
[2016-10-16 05:03] LABS: AUTOMATED NEUTROPHIL # 16.5 TH/MM3 (1.8-7.7); BASOPHIL % 0.1 % (0.0-2.0); EOSINOPHIL # 0.1 TH/MM3 (0-0.4); EOSINOPHIL % 0.7 % (0.0-4.0); HEMATOCRIT 26.9 % (39.0-51.0); HEMO FLAGS DIFF FINAL; LYMPH % 4.4 % (9.0-44.0); LYMPHOCYTE # 0.8 TH/MM3 (1.0-4.8); MEAN CELL VOLUME 88.6 FL (80.0-100.0); MEAN CORPUSCULAR HEMOGLOBIN 29.6 PG (27.0-34.0); MEAN CORPUSCULAR HGB CONC 33.5 % (32.0-36.0); MONO % 5.1 % (0.0-8.0); NEUT % 89.7 % (16.0-70.0); PLATELET COUNT 304 TH/MM3 (150-450); RED BLOOD COUNT 3.04 MIL/MM3 (4.50-5.90); RED CELL DISTRIBUTION WIDTH 16.1 % (11.6-17.2); WHITE BLOOD COUNT 18.4 TH/MM3 (4.0-11.0)
[2016-10-16 05:17] LABS: INTERNATIONAL NORMALIZED RATIO 3.2 RATIO; PROTHROMBIN TIME - PATIENT 37.5 SEC (9.8-11.6)
[2016-10-16] MEDS: metroNIDAZOLE 500 MG TAB PO SCH ×3 (05:30→22:10)
[2016-10-16] MEDS: ACETAMINOPHEN/HYDROcodone 325 MG/5 MG TAB PO PRN (05:31)
--- NOTE | 2016-10-16 05:44 | RADRPT ---
EXAM DATE/TIME: 10/16/2016 03:59 [place] COMPARISON: CHEST SINGLE AP, October 14, 2016, 12:18. INDICATIONS : Shortness of breath, possible pulmonary disease. MEDICAL HISTORY : Hypertension. Congestive heart failure. Gastroesophageal reflux disease. A-Fib SURGICAL HISTORY : Coronary artery stent. ENCOUNTER: Subsequent ACUITY: 4 - 6 days PAIN SCORE: 0/10 LOCATION: Bilateral chest FINDINGS: Bibasilar consolidation and small effusions present, worse on both sides. No pneumothorax seen. Mild cardiomegaly is stable. Right internal jugular central venous catheter are again seen, tip in the superior vena cava. CONCLUSION: Worsening bibasilar consolidation and small effusions. Daron Crawley MD on October 16, 2016 at 5:42 Board Certified Radiologist. This report was verified electronically.
[2016-10-16 05:52] LABS: ALKALINE PHOSPHATASE 206 U/L (45-117); ALT (GPT) 41 U/L (12-78); ANION GAP 9 MEQ/L (5-15); AST (GOT) 10 U/L (15-37); BICARBONATE 24.9 MEQ/L (21.0-32.0); BLOOD UREA NITROGEN 49 MG/DL (7-18); CHLORIDE 102 MEQ/L (98-107); DIGOXIN 1.4 NG/ML (0.8-2.0); GLOMERULAR FILTRATION RATE 18 ML/MIN (>89); MAGNESIUM 1.4 MG/DL (1.5-2.5); POTASSIUM 4.4 MEQ/L (3.5-5.1); SODIUM (NA) 136 MEQ/L (136-145); TOTAL BILIRUBIN ADULT 0.5 MG/DL (0.2-1.0)
[2016-10-16] MEDS: INSULIN ASPART SUPPLEMENTAL SCALE SQ SCH ×4 (07:00→20:13)
[2016-10-16] MEDS: SODIUM CHLORIDE 0.9% FLUSH 5 ML FLUSH FLUSH SCH ×2 (08:12→20:13)
[2016-10-16] MEDS: ALBUMIN HUMAN 25% 25 GM/100 ML BAGP IV SCH ×2 (08:12→20:13)
[2016-10-16] MEDS: DILTIAZEM HCL 30 MG TAB PO SCH ×4 (08:12→20:13)
--- NOTE | 2016-10-16 09:06 | HHI.IDPN ---
Subjective Subjective Remarks is a 76 y/o CM resident of local retirement who was brought into the ED at [facility]. Prior history of Shewanella bacteremia, Cdiff Colitis , Left arm cellulitis in Jul 2016. PMHx is also significant for Afib on coumadin and digoxin. ID following for Mment of Septic Shock, h/o Cdiff, Possible complicated UTI, GNR bacteremia. Overnight events reviewed. No fever No diarrhea No rash UO ok. Urine still cloudy but much better than yday. Antibiotics Cefepime IV Flagyl IV Lines Line sites with no e/o infection Past Medical History reviewed Allergies: Coded Allergies: No Known Allergies (Verified , 10/13/16) Objective . Vital Signs Date Time Temp Pulse Resp B/P Pulse Ox O2 Delivery O2 Flow Rate FiO2 10/16/16 08:06 93 Nasal Cannula 2.00 10/16/16 07:42 18 10/16/16 06:00 92 10/16/16 04:00 111 10/16/16 04:00 97.8 111 20 123/63 91 10/16/16 02:00 93 10/16/16 00:00 92 10/16/16 00:00 97.9 92 14 119/59 92 10/15/16 23:22 93 Nasal Cannula 2.00 10/15/16 22:00 81 10/15/16 20:00 98.0 94 20 116/69 96 10/15/16 20:00 94 10/15/16 18:00 90 10/15/16 16:00 90 10/15/16 16:00 98.8 93 24 119/58 96 10/15/16 14:00 90 10/15/16 12:00 97.7 93 24 108/53 94 10/15/16 12:00 93 10/15/16 10:00 110 10/15/16 10/15/16 10/16/16 15:00 23:00 07:00 Intake Total 1531 ml 695 ml 579 ml Output Total 850 ml 1150 ml 1000 ml Balance 681 ml -455 ml -421 ml Intake Oral 250 ml 240 ml 240 ml IV Total 613 ml 355 ml 339 ml Albumin 100 ml Packed Cells 668 ml Output Urine Total 850 ml 1150 ml 1000 ml # Bowel Movements 1 0 0 . Laboratory Tests Test 10/15/16 10/15/16 10/16/16 05:00 14:56 04:40 White Blood Count 14.2 TH/MM3 18.4 TH/MM3 Red Blood Count 2.14 MIL/MM3 3.04 MIL/MM3 Hemoglobin 6.4 GM/DL 8.5 GM/DL 9.0 GM/DL Hematocrit 19.0 % 25.2 % 26.9 % Mean Corpuscular Volume 88.8 FL 88.6 FL Mean Corpuscular Hemoglobin 30.0 PG 29.6 PG Mean Corpuscular Hemoglobin 33.8 % 33.5 % Concent Red Cell Distribution Width 17.8 % 16.1 % Platelet Count 250 TH/MM3 304 TH/MM3 Mean Platelet Volume 8.7 FL 8.4 FL Neutrophils (%) (Auto) 89.9 % 89.7 % Lymphocytes (%) (Auto) 5.2 % 4.4 % Monocytes (%) (Auto) 4.5 % 5.1 % Eosinophils (%) (Auto) 0.3 % 0.7 % Basophils (%) (Auto) 0.1 % 0.1 % Neutrophils # (Auto) 12.8 TH/MM3 16.5 TH/MM3 Lymphocytes # (Auto) 0.7 TH/MM3 0.8 TH/MM3 Monocytes # (Auto) 0.6 TH/MM3 0.9 TH/MM3 Eosinophils # (Auto) 0.0 TH/MM3 0.1 TH/MM3 Basophils # (Auto) 0.0 TH/MM3 0.0 TH/MM3 CBC Comment AUTO DIFF DIFF FINAL Differential Comment AUTO DIFF CONFIRMED Toxic Granulation 1+ Platelet Estimate NORMAL Platelet Morphology Comment NORMAL Laboratory Tests Test 10/14/16 10/14/16 10/14/16 10/15/16 11:10 11:35 17:35 05:00 Sodium Level 132 MEQ/L 134 MEQ/L 135 MEQ/L Potassium Level 5.8 MEQ/L 5.3 MEQ/L 5.1 MEQ/L Chloride Level 101 MEQ/L 101 MEQ/L 104 MEQ/L Carbon Dioxide Level 22.5 MEQ/L 24.9 MEQ/L 22.3 MEQ/L Anion Gap 9 MEQ/L 8 MEQ/L 9 MEQ/L Blood Urea Nitrogen 55 MG/DL 52 MG/DL 52 MG/DL Creatinine 4.03 MG/DL 3.94 MG/DL 3.65 MG/DL Estimat Glomerular Filtration 15 ML/MIN 15 ML/MIN 16 ML/MIN Rate Random Glucose 115 MG/DL 106 MG/DL 130 MG/DL Calcium Level 7.8 MG/DL 7.5 MG/DL 7.4 MG/DL Total Bilirubin 0.9 MG/DL 0.6 MG/DL Aspartate Amino Transf 57 U/L 36 U/L (AST/SGOT) Alanine Aminotransferase 85 U/L 69 U/L (ALT/SGPT) Alkaline Phosphatase 307 U/L 253 U/L Total Protein 5.2 GM/DL 5.2 GM/DL 5.0 GM/DL Albumin 1.4 GM/DL 1.5 GM/DL Lactic Acid Level 2.0 mmol/L Protein Corrected Calcium 8.6 MG/DL Test 10/16/16 04:40 Sodium Level 136 MEQ/L Potassium Level 4.4 MEQ/L Chloride Level 102 MEQ/L Carbon Dioxide Level 24.9 MEQ/L Anion Gap 9 MEQ/L Blood Urea Nitrogen 49 MG/DL Creatinine 3.41 MG/DL Estimat Glomerular Filtration 18 ML/MIN Rate Random Glucose 92 MG/DL Calcium Level 7.8 MG/DL Magnesium Level 1.4 MG/DL Total Bilirubin 0.5 MG/DL Aspartate Amino Transf 10 U/L (AST/SGOT) Alanine Aminotransferase 41 U/L (ALT/SGPT) Alkaline Phosphatase 206 U/L Total Protein 5.7 GM/DL Albumin 2.1 GM/DL Microbiology Date/Time Procedure Status Source Growth 10/13/16 21:35 Urine Culture - Preliminary Resulted Urine Clean Catch Gram Negative Ke 10/13/16 23:50 Aerobic Blood Culture - Preliminary Resulted Blood Peripheral Gram Negative Ke 10/13/16 23:50 Anaerobic Blood Culture - Preliminary Resulted Gram Negative Ke 10/13/16 23:53 Aerobic Blood Culture - Preliminary Resulted Blood Peripheral Gram Negative Ke 10/13/16 23:53 Anaerobic Blood Culture - Preliminary Resulted Gram Negative Ke 10/15/16 09:30 Stool Occult Blood (ROBERTH) - Final Complete Stool Stool HEMOCCULT NEGATIVE 10/15/16 15:50 Aerobic Blood Culture Received Blood Peripheral Pending 10/15/16 15:50 Anaerobic Blood Culture Received Blood Peripheral Pending 10/15/16 15:59 Aerobic Blood Culture Resulted Blood Peripheral Pending 10/15/16 15:59 Anaerobic Blood Culture - Final Resulted Blood Peripheral QNS - SEE AEROBE REPORT Imaging Last Impressions Chest X-Ray 10/14/16 0000 Signed Impressions: Service Date/Time: Friday, October 14, 2016 12:18 - CONCLUSION: 1. Right central line in good position. No pneumothorax. 2. Mild bibasilar infiltrates. Jorden Santiago MD Abdomen/Pelvis CT 10/14/16 0000 Signed Impressions: Service Date/Time: Friday, October 14, 2016 10:14 - CONCLUSION: 1. No evidence of colitis or colonic wall thickening. 2. Solid organs are unremarkable except for a bilobed cyst midpole left kidney. No evidence of renal obstruction. Diffuse body wall edema. Guevara Swain MD Physical Exam GENERAL: This is a well-nourished, well-developed patient, in no apparent distress. SKIN: Skin with blisters on bilateral LE, upper back. Erythema on right thigh. Bilateral LE edema right more than left with mild erythema. Ecchymosis. HEAD: Atraumatic. Normocephalic. No temporal or scalp tenderness. EYES: Pupils equal round and reactive. Extraocular motions intact. No scleral icterus. No injection or drainage. ENT: Nose without bleeding, purulent drainage or septal hematoma. Throat without erythema, tonsillar hypertrophy or exudate. Uvula midline. Airway patent. NECK: Trachea midline. Supple, nontender, no meningeal signs. CARDIOVASCULAR: HS audible. No murmur appreciated. RESPIRATORY: Clear to auscultation. Breath sounds equal bilaterally. No wheezes , rales, or rhonchi. GASTROINTESTINAL: Abdomen soft, non-tender, nondistended. MUSCULOSKELETAL: per skin. No joint effusions Sacrum: skin erythema but no breaks noted. NEUROLOGICAL: Awake and alert. Grossly non focal Psych: cooperative IV line sites with no e/o infection. Assessment & Plan Remarks Septic Shock present on admission. GNR bacteremia GNR complicated UTI with urinary obstruction. h/o recurrent Cdiff possible Cdiff Colitis due to abdominal pain and tenderness. Bilateral LE cellulitis with blisters ? Strep. Acute renal failure: sepsis, prerenal, urinary obstruction. Elevated LFTs: sepsis related. Urinary obstruction Hypoalbuminemia: ? nutritional Recs: Continue Cefepime IV Continue oral flagyl (better for cdiff for local availability) CT non contrast abdomen: no colitis, no stone or hydronephrosis. Follow cultures Follow clinically. d/w RN, pt Karla Plata MD Oct 16, 2016 09:06
--- NOTE | 2016-10-16 09:42 | HHI.NPPN ---
Subjective General Problems: Anemia, Edema Renal Failure: Chronic, Acute Interval History Pt is awake. Hemoglobin improved after blood transfusion yesterday. Renal function is better, excellent urine output. (Monika Martinez) Review of Systems General Constitutional: Fatigue (Monika Martinez) Cardiovascular Cardiac: Edema (Monika Martinez) Gastrointestinal Gastrointestinal: Abdominal Pain, Nausea & Vomiting (Monika Martinez) Musculoskeletal MS: Pain/Stiffness (Monika Martinez) Objective Data Data 10/15/16 10/16/16 19:00 07:00 Intake Total 1531 ml 1274 ml Output Total 850 ml 2150 ml Balance 681 ml -876 ml Intake Oral 250 ml 480 ml IV Total 613 ml 694 ml Albumin 100 ml Packed Cells 668 ml Output Urine Total 850 ml 2150 ml # Bowel Movements 1 0 Vital Signs Date Time Temp Pulse Resp B/P Pulse Ox O2 Delivery O2 Flow Rate FiO2 10/16/16 08:06 93 Nasal Cannula 2.00 10/16/16 07:42 18 10/16/16 06:00 92 10/16/16 04:00 111 10/16/16 04:00 97.8 111 20 123/63 91 10/16/16 02:00 93 10/16/16 00:00 92 10/16/16 00:00 97.9 92 14 119/59 92 10/15/16 23:22 93 Nasal Cannula 2.00 10/15/16 22:00 81 10/15/16 20:00 98.0 94 20 116/69 96 10/15/16 20:00 94 10/15/16 18:00 90 10/15/16 16:00 90 10/15/16 16:00 98.8 93 24 119/58 96 10/15/16 14:00 90 10/15/16 12:00 97.7 93 24 108/53 94 10/15/16 12:00 93 10/15/16 10:00 110 (Monika Martinez) -: 10/16/16 0440 10/16/16 0440 Microbiology 10/15/16 Aerobic Blood Culture, Received Pending 10/15/16 Anaerobic Blood Culture, Received Pending 10/15/16 Aerobic Blood Culture, Resulted Pending 10/15/16 Anaerobic Blood Culture - Final, Resulted QNS - SEE AEROBE REPORT Imaging Last 48 hours Impressions Chest X-Ray 10/16/16 0600 Signed Impressions: Service Date/Time: October 03:59 - CONCLUSION: Worsening bibasilar consolidation and small effusions. Daron Crawley MD Tubes & Lines: [place] Tubes & Lines Comment TLC right IJ Drip Comment Vasopressin (Monika Martinez B. [employer] MACHINE) Physical Exam General Appearance: No Acute Distress, Comfortable, Malnourished (Juan,Monika B. [employer]ACH[employer]) Eyes Eye Exam: Pupils Equal (Juan,Monika B. [employer]ACHINE) Throat Throat Exam: Oral Mucosa [place] & Moist Throat Remarks very poor dentition/broken teeth (Fady Martinezon B. [employer]ACHINE) Neck Neck Exam: Neck Supple (JuanMonika B. [employer]ACHINE) Pulmonary Resp Exam: Breath Sounds Equal, Rhonchi, Sputum (Monika Martinez B. [employer]ACH[employer]) Cardiology CV Exam: Good Perfusion, Irregular (Fady Martinezon B. [employer]ACH[employer]) Gastrointestinal/Abdomen GI Exam: Soft, Non-Tender, Bowel Sounds Present, Positive Bowel Movement ( Monika Martinez B. [employer]) Genitourinary Exam: Clear Urine (Fady Martinezon B. [employer]ACH[employer]) Musculoskeletal MS Exam: Joints Intact, Normal Tone (JuanMonika B. [employer]ACHINE) Integumentary Skin Remarks blisters to lower extremities, dressing inplace bilaterally upper extremity ecchymosis (Fady Martinezon B. [employer]ACH[employer]) Extremeties Extremities Exam: Pedal Pulses Palpable, Pitting Edema, Dependent Edema ( JuanMonika B. [employer]ACHINE) Neurologic Neuro Exam: Alert, Awake, Oriented, Speech Clear, Moving All Extremities ( Fady Martinezon B. [employer]ACH[employer]) Psychiatric Psych Exam: Appropriate Responses (Monika Martinez B. [employer]ACH[employer]) Assessment/Plan Discussed Condition With: Patient Assessment Summary: Anemia of CKD, Hypotension Problem List: (1) RAVEN (acute kidney injury) Plan: Multifactorial: he had obstructive uropathy on arrival, which was corrected with burgos placement now having good urine output also thought to ave prerenal azotemia due to sepsis, renal hypoperfusion K has improved, no acid base imbalance BP improved, off pressors off IVF, will give additional Bumex as lower extremity edema persists oral hydration adequate daily metabolic profile monitor urine output, burgos catheter care, may attempt voiding trial in a few days avoid nephrotoxins (2) Severe sepsis Plan: probable urosepsis, Blood cultures with 4/4 growing Gram negative rods ID following continue antimicrobial therapy , on cefepime and IV flagyl CT abd/pelvis without contrast negative for colitis repeat C diff negative lung sounds course, recommended getting Out of bed, will order incentive spirometry (3) Anemia Plan: hemoglobin improved, transfused PRBC yesterday stool for occult blood negative check iron profile (4) Atrial fibrillation with RVR Plan: tachycardic today, on oral Cardizem gtt monitor rate, titrate to effectiveness (5) Hyperkalemia Plan: due to diminished renal clearance repeat has improved, continue to monitor (Monika Martinez) Plan patient was seen and examined. Renal function continues to improve. Cautious diuresis. (Ruben Callahan MD) Monika Martinez Oct 16, 2016 09:42 Ruben Callahan MD Oct 16, 2016 11:08
[2016-10-16] MEDS: CEFEPIME INJ 2,000 MG in SODIUM CHLORIDE 0.9% INJ 100 ML IV SCH (10:28)
--- NOTE | 2016-10-16 10:54 | HHI.CCPN ---
Subjective Remarks/Hospital Course Patient is a 76-year-old male who is a resident of local senior care with history of C. difficile colitis recently discharged from hospital (Sep 2016 ), Shewanella bacteremia, atrial fibrillation on Coumadin, coronary artery disease who was brought in via EMS with generalized weakness for the past week. He also reported having blisters predominantly to bilateral shins and redness to the right lateral thigh for 5 days. Patient had been receiving by mouth vancomycin in the senior care for C. difficile colitis. Pertinent labs on admission WBC 11.7, Alb 1.3; Cr 4.22 (baseline 2-3). Tmax was 102. Patient was started on Cardizem infusion for A. fib with RVR. Because of hypotension and lactic acid of 4.9 patient was given 2.5 L normal saline boluses but despite this he remained hypotensive and Levophed was started and rapidly titrated up to 10 mics per minute. Patient has received Zosyn IV, Vanco IV x 1 doses in the ED and hospitalist had placed patient on ceftriaxone. I have started IV Flagyl to cover for C. difficile colitis. I evaluated the patient in the ED. He is currently on 10 mics per minute of Levophed, appears critically ill. He complained of right lower quadrant pain but CT of the abdomen pelvis is unremarkable. Infectious disease has changed Rocephin to cefepime, and we are continuing Flagyl. C. difficile studies ordered. Heart rate is showing improved control on Cardizem 10 mg/h SUBJ 10/15: Patient remains on vasopressin 0.04 international units, hemoglobin has dropped to 8.4 stat 2 units PRBC ordered pending. No evidence of GI bleed INR was supratherapeutic yesterday repeat pending. Creatinine is improving 3.65 today, potassium has normalized to 5.1. Urine output 2.1 L in 24 hours 10/16: Clinically improving off vasopressin. Creatinine slightly improved to 3.4 urine output 3 L. WBC count is slightly increased to 18.4. Blood cultures with GNR bacteremia in 4 out of 4 bottles Objective Vital Signs Date Time Temp Pulse Resp B/P Pulse Ox O2 Delivery O2 Flow Rate FiO2 10/16/16 10:00 92 10/16/16 08:06 93 Nasal Cannula 2.00 10/16/16 07:42 18 10/16/16 04:00 97.8 123/63 Intake and Output 10/15/16 10/15/16 10/16/16 08:00 16:00 00:00 Intake Total 1155 ml 1531 ml 695 ml Output Total 850 ml 1150 ml Balance 1155 ml 681 ml -455 ml Result Diagram: 10/16/16 0440 10/16/16 0440 Other Results Microbiology Date/Time Procedure Status Source Growth 10/15/16 09:30 Stool Occult Blood (ROBERTH) - Final Complete Stool Stool HEMOCCULT NEGATIVE Imaging CT abdomen pelvis without acute findings Objective Remarks GENERAL: 76-year-old male who appears critically ill SKIN: Skin in pain with open blisters bilateral lower extremity, erythema and cellulitis of the right lateral thigh HEAD: Atraumatic. Normocephalic. EYES: Pupils equal round and reactive. Conjunctivae pale ENT: Oral mucosa is dry. Uvula midline. Airway patent. NECK: Trachea midline. Supple neck CARDIOVASCULAR: Irregular heart rate in A. fib. No murmur appreciated. Off pressors RESPIRATORY: Clear to auscultation. Breath sounds equal bilaterally. GASTROINTESTINAL: Abdomen soft, right lower quadrant tenderness without guarding NEUROLOGICAL: Awake and alert. Grossly non focal. Muscle strength appears adequate Urinary Catheter: Yes Assessment to: Continue Vascular Central Line Catheter: Yes Assessment to: Continue A/P Assessment and Plan ASSESSMENT: Septic shock-resolved Gram-negative bacteremia A. fib rate controlled Acute on chronic kidney failure Hyperkalemia-resolved Lactic acidosis Coagulopathy Bullous lesions bilateral lower extremity/cellulitis UTI with Escherichia coli, GNR Coronary artery disease History of congestive heart failure Chronic A. fib on Coumadin History of recurrent C. difficile colitis PLAN: NEURO: Acute Metabolic encephalopathy -As needed morphine for pain, neuro status improving RESP: -Nasal cannula oxygen, DuoNeb q 6 PRN CV: Septic shock -resolved Atrial fibrillation Chronic A. fib on Coumadin History of coronary artery disease -Normal saline IV fluid 2.5 L bolus on 10/14/16 followed by maintenance at 84 ml per hour -Continue Cardizem 30 mg by mouth 4 times a day, cardiology consulted -Off Vasopressin infusion to keep map above 65. 2 D Echo NL EF GI: Recurrent C. difficile colitis -IV Flagyl for C. difficile, -IV Protonix for GI prophylaxis -Heart healthy diet : Acute on chronic kidney disease Hyperkalemia -Monitor renal function closely. Lambert catheter. Nephrology following -IV insulin followed by D50, bicarbonate and DuoNeb breathing treatment for hyperkalemia 10/14 -Potassium has normalized, no indication for hemodialysis at this time -Avoid Kayexalate due to recurrent C. difficile colitis ID: Septic shock UTI Bilateral lower extremity cellulitis/bullous lesion of the lower extremities Recurrent C. difficile colitis -Follow up on blood and urine culture, antibiotics per ID currently on cefepime and Flagyl -Discussed with Dr. Plata, ID -Fluid resuscitation, trend lactic acid HEME: Coagulopathy from Coumadin -Monitor CBC, CMP, INR -2 units of FFP 10/14 to facilitate central line placement -Received 2 units PRBC yesterday, hemoglobin stable today ENDO: Hyperkalemia-resolved -Treated as above PROPH: -Bilateral lower extremity SCDs. INR supratherapeutic 3.2 today. IV Protonix for GI prophylaxis LINES: -Right IJ central line Level 3 CCM will sign off today. Ok to transfer out of ICU Hailee Neri MD Oct 16, 2016 10:54
[2016-10-16] MEDS ORDERED: BUMETANIDE INJ 1 MG/4 ML VIAL IV PUSH ONE (11:45)
--- NOTE | 2016-10-16 12:16 | HHI.PR ---
Subjective Interval History Alert, oriented,off vasopressin. Creatinine slightly improved, Improved urine output 3 L. WBC count is slightly increased to 18.4. Blood cultures with GNR bacteremia in 4 out of 4 bottle Vitals/Results Intake & Output 10/15/16 10/15/16 10/16/16 15:00 23:00 07:00 Intake Total 1531 ml 695 ml 579 ml Output Total 850 ml 1150 ml 1000 ml Balance 681 ml -455 ml -421 ml Intake Oral 250 ml 240 ml 240 ml IV Total 613 ml 355 ml 339 ml Albumin 100 ml Packed Cells 668 ml Output Urine Total 850 ml 1150 ml 1000 ml # Bowel Movements 1 0 0 Vital Signs Vital Signs Date Time Temp Pulse Resp B/P Pulse Ox O2 Delivery O2 Flow Rate FiO2 10/16/16 10:00 92 10/16/16 08:06 93 Nasal Cannula 2.00 10/16/16 08:00 98.3 96 18 115/60 94 10/16/16 08:00 87 10/16/16 07:42 18 10/16/16 06:00 92 10/16/16 04:00 111 10/16/16 04:00 97.8 111 20 123/63 91 10/16/16 02:00 93 10/16/16 00:00 92 10/16/16 00:00 97.9 92 14 119/59 92 10/15/16 23:22 93 Nasal Cannula 2.00 10/15/16 22:00 81 10/15/16 20:00 98.0 94 20 116/69 96 10/15/16 20:00 94 10/15/16 18:00 90 10/15/16 16:00 90 10/15/16 16:00 98.8 93 24 119/58 96 10/15/16 14:00 90 CBC/BMP: 10/16/16 0440 10/16/16 0440 Lab Results Laboratory Tests Test 10/15/16 10/16/16 14:56 04:40 Hemoglobin 8.5 GM/DL 9.0 GM/DL Hematocrit 25.2 % 26.9 % White Blood Count 18.4 TH/MM3 Red Blood Count 3.04 MIL/MM3 Mean Corpuscular Volume 88.6 FL Mean Corpuscular Hemoglobin 29.6 PG Mean Corpuscular Hemoglobin 33.5 % Concent Red Cell Distribution Width 16.1 % Platelet Count 304 TH/MM3 Mean Platelet Volume 8.4 FL Neutrophils (%) (Auto) 89.7 % Lymphocytes (%) (Auto) 4.4 % Monocytes (%) (Auto) 5.1 % Eosinophils (%) (Auto) 0.7 % Basophils (%) (Auto) 0.1 % Neutrophils # (Auto) 16.5 TH/MM3 Lymphocytes # (Auto) 0.8 TH/MM3 Monocytes # (Auto) 0.9 TH/MM3 Eosinophils # (Auto) 0.1 TH/MM3 Basophils # (Auto) 0.0 TH/MM3 CBC Comment DIFF FINAL Differential Comment Prothrombin Time 37.5 SEC Prothromb Time International 3.2 RATIO Ratio Sodium Level 136 MEQ/L Potassium Level 4.4 MEQ/L Chloride Level 102 MEQ/L Carbon Dioxide Level 24.9 MEQ/L Anion Gap 9 MEQ/L Blood Urea Nitrogen 49 MG/DL Creatinine 3.41 MG/DL Estimat Glomerular Filtration 18 ML/MIN Rate Random Glucose 92 MG/DL Calcium Level 7.8 MG/DL Magnesium Level 1.4 MG/DL Total Bilirubin 0.5 MG/DL Aspartate Amino Transf 10 U/L (AST/SGOT) Alanine Aminotransferase 41 U/L (ALT/SGPT) Alkaline Phosphatase 206 U/L Total Protein 5.7 GM/DL Albumin 2.1 GM/DL Digoxin Level 1.4 NG/ML Microbiology Microbiology 10/15/16 Aerobic Blood Culture - Preliminary, Resulted NO GROWTH IN 1 DAY 10/15/16 Anaerobic Blood Culture - Preliminary, Resulted NO GROWTH IN 1 DAY 10/15/16 Aerobic Blood Culture - Preliminary, Resulted NO GROWTH IN 1 DAY 10/15/16 Anaerobic Blood Culture - Final, Resulted QNS - SEE AEROBE REPORT Physical Exam General General Appearance: No Acute Distress, Comfortable, Malnourished Eyes Eye Exam: Pupils Equal Throat Throat Exam: Oral Mucosa [place] & Moist Neck Neck Exam: Neck Supple Pulmonary Resp Exam: Breath Sounds Equal, Rhonchi, Sputum Cardiology CV Exam: Good Perfusion, Irregular Gastrointestinal/Abdomen GI Exam: Soft, Non-Tender, Bowel Sounds Present, Positive Bowel Movement Genitourinary Exam: Clear Urine Musculoskeletal MS Exam: Joints Intact, Normal Tone Extremeties Extremities Exam: Pedal Pulses Palpable, Pitting Edema, Dependent Edema Neurologic Neuro Exam: Alert, Awake, Oriented, Speech Clear, Moving All Extremities Psychiatric Psych Exam: Appropriate Responses Assessment/Plan Assessment/Plan ASSESSMENT AND PLAN . Sepsis/Septic shock, Improving . Atrial fibrillation with RVR . Acute kidney injury with renal insufficiency . Hyperkalemia . Coronary artery disease . UTI . Severe protein calorie malnutrition . Dehydration Management. pressors Discontinued and Keep hemoglobin above 8 [employer]ruiting Internship , Cardiology, infectious disease, body engineer following Empiric antibiotics Discussed with patient Discussed with nurse Bassem Delgado MD Oct 16, 2016 12:16
[2016-10-16] MEDS: MAGNESIUM SULFATE 1 GM PREMIX 100 ML IV SCH ×2 (12:55→14:14)
[2016-10-16] MEDS: BUMETANIDE INJ 1 MG/4 ML VIAL IV PUSH SCH (18:03)
[2016-10-17] VITALS (8 sets, daily range): BP systolic 109–142; BP diastolic 55–91; PULSE 85–120; RESP 20–22; TEMP 97–98.2; O2SAT 94–96
[2016-10-17] MEDS: CHLORHEXIDINE GLUCONATE 2 % 1 PACK (2 CLOTHS)(taper/protocol) TOP SCH (04:00)
[2016-10-17] MEDS: metroNIDAZOLE 500 MG TAB PO SCH ×3 (05:12→21:52)
[2016-10-17] MEDS: INSULIN ASPART SUPPLEMENTAL SCALE SQ SCH ×4 (06:30→21:52)
[2016-10-17 06:42] LABS: INTERNATIONAL NORMALIZED RATIO 2.3 RATIO; PROTHROMBIN TIME - PATIENT 26.4 SEC (9.8-11.6)
[2016-10-17 07:01] LABS: ANION GAP 6 MEQ/L (5-15); BICARBONATE 29.3 MEQ/L (21.0-32.0); BLOOD UREA NITROGEN 49 MG/DL (7-18); CHLORIDE 103 MEQ/L (98-107); GLOMERULAR FILTRATION RATE 19 ML/MIN (>89); POTASSIUM 4.1 MEQ/L (3.5-5.1); SODIUM (NA) 138 MEQ/L (136-145); TRANSFERRIN IRON PROFILE 87 MG/DL (200-360)
--- NOTE | 2016-10-17 09:57 | HHI.NPPN ---
Subjective General Problems: Anemia, Edema Renal Failure: Chronic, Acute Interval History Sitting up eating breakfast. Developing scrotal edema. Burgos draining appropriately. Diuresing well. (Monika Martinez) Review of Systems General Constitutional: Fatigue (Monika Martinez) Cardiovascular Cardiac: Edema (Monika Martinez) Gastrointestinal Gastrointestinal: Abdominal Pain, Nausea & Vomiting (Monika Martinez) Musculoskeletal MS: Pain/Stiffness (Monika Martinez) Objective Data Data 10/16/16 10/17/16 19:00 07:00 Intake Total 1140 ml 1060 ml Output Total 850 ml 5325 ml Balance 290 ml -4265 ml Intake Oral 420 ml 960 ml IV Total 620 ml 100 ml Albumin 100 ml Output Urine Total 850 ml 5325 ml Stool Total 0 ml Vital Signs Date Time Temp Pulse Resp B/P Pulse Ox O2 Delivery O2 Flow Rate FiO2 10/17/16 08:00 98.2 110 22 121/72 95 10/17/16 04:00 98.2 106 20 142/91 96 10/17/16 00:00 97.6 101 20 117/60 94 10/16/16 23:52 96 10/16/16 20:51 98.0 104 20 135/78 96 10/16/16 20:00 103 10/16/16 20:00 97.7 103 24 119/61 95 10/16/16 19:35 96 Nasal Cannula 2.00 10/16/16 18:00 96 10/16/16 16:00 98.6 90 20 124/66 96 10/16/16 16:00 90 10/16/16 14:00 86 10/16/16 12:00 98.4 91 20 125/61 95 10/16/16 12:00 90 10/16/16 10:00 92 (Monika Martinez) -: 10/16/16 0440 10/17/16 0514 Imaging Last 48 hours Impressions Chest X-Ray 10/16/16 0600 Signed Impressions: Service Date/Time: October 03:59 - CONCLUSION: Worsening bibasilar consolidation and small effusions. Daron Crawley MD Tubes & Lines: Burgos Tubes & Lines Comment TLC right IJ (Monika Martinez) Physical Exam General Appearance: No Acute Distress, Comfortable, Malnourished (Monika Martinez) Eyes Eye Exam: Pupils Equal (Monika Martinez) Throat Throat Exam: Oral Mucosa [place] & Moist Throat Remarks very poor dentition/broken teeth (Monika Martinez NANOSYSTEMS ENGINEER) Neck Neck Exam: Neck Supple (Monika Martinez) Pulmonary Resp Exam: Breath Sounds Equal, Rhonchi, Sputum (Monika Martinez NANOSYSTEMS ENGINEER) Cardiology CV Exam: Good Perfusion, Irregular (Monika MartinezP) Gastrointestinal/Abdomen GI Exam: Soft, Non-Tender, Bowel Sounds Present, Positive Bowel Movement ( Monika Martinez) Genitourinary Exam: Clear Urine (Monika Martinez) Musculoskeletal MS Exam: Joints Intact, Normal Tone (Monika Martinez) Integumentary Skin Remarks blisters to lower extremities, dressing inplace bilaterally upper extremity ecchymosis (Monika Martinez) Extremeties Extremities Exam: Pedal Pulses Palpable, Pitting Edema, Dependent Edema ( Monika Martinez) Neurologic Neuro Exam: Alert, Awake, Oriented, Speech Clear, Moving All Extremities ( Monika Martinez) Psychiatric Psych Exam: Appropriate Responses (Monika Martinez) Assessment/Plan Discussed Condition With: Patient Assessment Summary: Anemia of CKD, Hypotension Problem List: (1) RAVEN (acute kidney injury) Plan: Multifactorial: he had obstructive uropathy on arrival, which was corrected with burgos placement now having good urine output also thought to ave prerenal azotemia due to sepsis, renal hypoperfusion K has improved, no acid base imbalance BP stable off IVF, diuresing with Bumex 2 mg IV BID, monitor output oral hydration adequate daily metabolic profile continue burgos catheter care, may attempt voiding trial over the weekend avoid nephrotoxins (2) Severe sepsis Plan: probable urosepsis, Blood cultures with 4/4 growing Gram negative rods; repeat BC negative ID following continue antimicrobial therapy , on cefepime and IV flagyl CT abd/pelvis without contrast negative for colitis repeat C diff negative lung sounds course, recommended getting Out of bed, will order incentive spirometry; CXR negative (3) Anemia Plan: hemoglobin improved, transfused PRBC this week stool for occult blood negative avoid venofer with ongoing sepsis (4) Atrial fibrillation with RVR Plan: rate controlled, on oral Cardizem monitor rate, titrate to effectiveness (5) Hyperkalemia Plan: due to diminished renal clearance repeat has improved, continue to monitor (Monika Martinez) Problem List: (1) RAVEN (acute kidney injury) Plan: Multifactorial: he had obstructive uropathy on arrival, which was corrected with burgos placement now having good urine output also thought to ave prerenal azotemia due to sepsis, renal hypoperfusion K has improved, no acid base imbalance BP stable off IVF, diuresing with Bumex 2 mg IV BID, monitor output oral hydration adequate daily metabolic profile continue burgos catheter care, may attempt voiding trial over the weekend avoid nephrotoxins (2) Severe sepsis Plan: probable urosepsis, Blood cultures with 4/4 growing Gram negative rods; repeat BC negative ID following continue antimicrobial therapy , on cefepime and IV flagyl CT abd/pelvis without contrast negative for colitis repeat C diff negative lung sounds coarse, recommended getting Out of bed, will order incentive spirometry; CXR negative (3) Anemia Plan: hemoglobin improved, transfused PRBC this week stool for occult blood negative avoid venofer with ongoing sepsis (4) Atrial fibrillation with RVR Plan: rate controlled, on oral Cardizem monitor rate, titrate to effectiveness (5) Hyperkalemia Plan: due to diminished renal clearance repeat has improved, continue to monitor Plan patient was seen and examined. Very good diuresis. Renal function is improving. (Ruben Callahan MD) Monika Martinez Oct 17, 2016 09:57 Ruben Callahan MD Oct 17, 2016 16:03
[2016-10-17] MEDS: DILTIAZEM HCL 30 MG TAB PO SCH ×4 (10:08→21:52)
[2016-10-17] MEDS: CEFEPIME INJ 2,000 MG in SODIUM CHLORIDE 0.9% INJ 100 ML IV SCH (10:08)
[2016-10-17] MEDS: BUMETANIDE INJ 1 MG/4 ML VIAL IV PUSH SCH ×2 (10:08→18:10)
[2016-10-17] MEDS: SODIUM CHLORIDE 0.9% FLUSH 5 ML FLUSH FLUSH SCH ×2 (10:09→21:52)
--- NOTE | 2016-10-17 11:43 | HHI.PR ---
Subjective Subjective Remarks pleasant no cp no sob no diarrhea scrotal swelling no fever tele reviewed, afib, HR 110 leg edema Review of Systems Constitutional Constitutional Remarks 12 point ROS completed, negative except as noted above Vitals/Results Intake & Output 10/16/16 10/16/16 10/17/16 15:00 23:00 07:00 Intake Total 1140 ml 580 ml 480 ml Output Total 850 ml 3500 ml 1825 ml Balance 290 ml -2920 ml -1345 ml Intake Oral 420 ml 480 ml 480 ml IV Total 620 ml 100 ml Albumin 100 ml Output Urine Total 850 ml 3500 ml 1825 ml Stool Total 0 ml Vital Signs Vital Signs Date Time Temp Pulse Resp B/P Pulse Ox O2 Delivery O2 Flow Rate FiO2 10/17/16 08:00 98.2 110 22 121/72 95 10/17/16 04:00 98.2 106 20 142/91 96 10/17/16 00:00 97.6 101 20 117/60 94 10/16/16 23:52 96 10/16/16 20:51 98.0 104 20 135/78 96 10/16/16 20:00 103 10/16/16 20:00 97.7 103 24 119/61 95 10/16/16 19:35 96 Nasal Cannula 2.00 10/16/16 18:00 96 10/16/16 16:00 98.6 90 20 124/66 96 10/16/16 16:00 90 10/16/16 14:00 86 10/16/16 12:00 98.4 91 20 125/61 95 10/16/16 12:00 90 CBC/BMP: 10/16/16 0440 10/17/16 0514 Lab Results Laboratory Tests Test 10/17/16 05:14 Prothrombin Time 26.4 SEC Prothromb Time International 2.3 RATIO Ratio Sodium Level 138 MEQ/L Potassium Level 4.1 MEQ/L Chloride Level 103 MEQ/L Carbon Dioxide Level 29.3 MEQ/L Anion Gap 6 MEQ/L Blood Urea Nitrogen 49 MG/DL Creatinine 3.26 MG/DL Estimat Glomerular Filtration 19 ML/MIN Rate Random Glucose 84 MG/DL Calcium Level 8.0 MG/DL Phosphorus Level 2.8 MG/DL Iron Level 35 MCG/DL Total Iron Binding Capacity 122 MCG/DL Percent Iron Saturation 28.7 % Albumin 2.3 GM/DL Physical Exam General General Appearance: No Acute Distress, Comfortable, Malnourished Eyes Eye Exam: Pupils Equal, Pupils Reactive Ears & Nose Ears & Nose Exam: Nasal Mucosa [place] Throat Throat Exam: Oral Mucosa [place] & Moist Neck Neck Exam: Neck Supple Pulmonary Resp Exam: Breath Sounds Equal, Rhonchi, Sputum Resp Remarks exp. wheeze Cardiology CV Exam: Good Perfusion, Irregular Gastrointestinal/Abdomen GI Exam: Soft, Non-Tender, Bowel Sounds Present, Non-Distended Genitourinary Exam: Clear Urine Remarks EPSTEIN scrotal swelling Musculoskeletal MS Exam: Joints Intact, Normal Tone Integumentary Skin Remarks skin tears to both legs fluid filled blebs noted erythema up left thigh rash to groin Extremeties Extremities Exam: Pedal Pulses Palpable, Pitting Edema, Dependent Edema Neurologic Neuro Exam: Alert, Awake, Oriented, Speech Clear, Moving All Extremities, No Focal Deficits Psychiatric Psych Exam: Appropriate Responses VTE Prophylaxis VTE Prophylaxis Meds: Coumadin Assessment/Plan Assessment/Plan ASSESSMENT AND PLAN 1. Sepsis 2. Atrial fibrillation with RVR 3. Acute kidney injury with renal insufficiency 4. Hyperkalemia 5. Coronary artery disease 6. UTI 7. Severe protein calorie malnutrition 8. Dehydration 9. PNA 10. Recent cdiff 11. Scrotal edema 12. Leg cellulitis Plan continue with abx Ecoli blood and urine appreciate ID input continue with Nasal cannula oxygen DuoNeb q 6 PRN afib, HR up, 120 increase Cardizem 60 mg po QID stools neg. for cdiff, hx recurrent C. difficile colitis PO Flagyl Acute on chronic kidney disease Monitor renal function closely. Epstein catheter. Nephrology following continue Bumex continue Coumadin follow INR S/P 2 units of FFP 10/14 to facilitate central line placement Anemia S/P 2 units PRBC hemoglobin stable today Continue with Coumadin for DVT prophylaxis keep epstein in place Keep TLC for now, on abx poor IV access PT eval and tx OOB Labs in am D/W RN D/W Dr. Delgado D/W pt This patient was seen by myself and Dr. Delgado, this note is written on his behalf. Gi Royal Oct 17, 2016 11:43
[2016-10-17] MEDS: NYSTATIN 100,000 U/GM PWD 15 GM BTL TOPICAL SCH ×2 (12:30→21:51)
[2016-10-17] MEDS: ACETAMINOPHEN/HYDROcodone 325 MG/5 MG TAB PO PRN ×2 (12:48→23:47)
[2016-10-17] MEDS: RESP: ALBUTEROL 2.5 MG/IPRATROPIUM 0.5 MG NEB (SCH) NEB ×2 (16:21→23:01)
--- NOTE | 2016-10-17 17:54 | HHI.IDPN ---
Subjective Subjective Remarks is a 76 y/o [place] resident of local retirement who was brought into the ED at [facility]. Prior history of [place] bacteremia, Cdiff Colitis , Left arm cellulitis in Jul 2016. PMHx is also significant for Afib on coumadin and digoxin. ID following for Mment of Septic Shock, h/o Cdiff, Possible complicated UTI, GNR bacteremia. Overnight events reviewed. No fever No diarrhea No rash Antibiotics Cefepime IV Flagyl IV Lines Line sites with no e/o infection Past Medical History reviewed Allergies: Coded Allergies: No Known Allergies (Verified , 10/13/16) Objective . Vital Signs Date Time Temp Pulse Resp B/P Pulse Ox O2 Delivery O2 Flow Rate FiO2 10/17/16 08:00 95 Nasal Cannula 2.00 10/17/16 08:00 98.2 110 22 121/72 95 10/17/16 04:00 98.2 106 20 142/91 96 10/17/16 00:00 97.6 101 20 117/60 94 10/16/16 23:52 96 10/16/16 20:51 98.0 104 20 135/78 96 10/16/16 20:00 103 10/16/16 20:00 97.7 103 24 119/61 95 10/16/16 19:35 96 Nasal Cannula 2.00 10/16/16 18:00 96 10/16/16 10/16/16 10/17/16 15:00 23:00 07:00 Intake Total 1140 ml 580 ml 480 ml Output Total 850 ml 3500 ml 1825 ml Balance 290 ml -2920 ml -1345 ml Intake Oral 420 ml 480 ml 480 ml IV Total 620 ml 100 ml Albumin 100 ml Output Urine Total 850 ml 3500 ml 1825 ml Stool Total 0 ml . Laboratory Tests Test 10/16/16 04:40 White Blood Count 18.4 TH/MM3 Red Blood Count 3.04 MIL/MM3 Hemoglobin 9.0 GM/DL Hematocrit 26.9 % Mean Corpuscular Volume 88.6 FL Mean Corpuscular Hemoglobin 29.6 PG Mean Corpuscular Hemoglobin 33.5 % Concent Red Cell Distribution Width 16.1 % Platelet Count 304 TH/MM3 Mean Platelet Volume 8.4 FL Neutrophils (%) (Auto) 89.7 % Lymphocytes (%) (Auto) 4.4 % Monocytes (%) (Auto) 5.1 % Eosinophils (%) (Auto) 0.7 % Basophils (%) (Auto) 0.1 % Neutrophils # (Auto) 16.5 TH/MM3 Lymphocytes # (Auto) 0.8 TH/MM3 Monocytes # (Auto) 0.9 TH/MM3 Eosinophils # (Auto) 0.1 TH/MM3 Basophils # (Auto) 0.0 TH/MM3 CBC Comment DIFF FINAL Differential Comment Laboratory Tests Test 10/16/16 10/17/16 04:40 05:14 Sodium Level 136 MEQ/L 138 MEQ/L Potassium Level 4.4 MEQ/L 4.1 MEQ/L Chloride Level 102 MEQ/L 103 MEQ/L Carbon Dioxide Level 24.9 MEQ/L 29.3 MEQ/L Anion Gap 9 MEQ/L 6 MEQ/L Blood Urea Nitrogen 49 MG/DL 49 MG/DL Creatinine 3.41 MG/DL 3.26 MG/DL Estimat Glomerular Filtration 18 ML/MIN 19 ML/MIN Rate Random Glucose 92 MG/DL 84 MG/DL Calcium Level 7.8 MG/DL 8.0 MG/DL Magnesium Level 1.4 MG/DL Total Bilirubin 0.5 MG/DL Aspartate Amino Transf 10 U/L (AST/SGOT) Alanine Aminotransferase 41 U/L (ALT/SGPT) Alkaline Phosphatase 206 U/L Total Protein 5.7 GM/DL Albumin 2.1 GM/DL 2.3 GM/DL Phosphorus Level 2.8 MG/DL Iron Level 35 MCG/DL Total Iron Binding Capacity 122 MCG/DL Percent Iron Saturation 28.7 % Microbiology Date/Time Procedure Status Source Growth 10/15/16 09:30 Stool Occult Blood ([facility]) - Final Complete Stool Stool HEMOCCULT NEGATIVE 10/15/16 15:50 Aerobic Blood Culture - Preliminary Resulted Blood Peripheral NO GROWTH IN 2 DAYS 10/15/16 15:50 Anaerobic Blood Culture - Preliminary Resulted Blood Peripheral NO GROWTH IN 2 DAYS 10/15/16 15:59 Aerobic Blood Culture - Preliminary Resulted Blood Peripheral NO GROWTH IN 2 DAYS 10/15/16 15:59 Anaerobic Blood Culture - Final Resulted Blood Peripheral QNS - SEE AEROBE REPORT Imaging Last Impressions Chest X-Ray 10/14/16 0000 Signed Impressions: Service Date/Time: Friday, October 14, 2016 12:18 - CONCLUSION: 1. Right central line in good position. No pneumothorax. 2. Mild bibasilar infiltrates. Jorden J. Siragusa, MD Abdomen/Pelvis CT 10/14/16 0000 Signed Impressions: Service Date/Time: Friday, October 14, 2016 10:14 - CONCLUSION: 1. No evidence of colitis or colonic wall thickening. 2. Solid organs are unremarkable except for a bilobed cyst midpole left kidney. No evidence of renal obstruction. Diffuse body wall edema. Guevara Swain MD Physical Exam GENERAL: This is a well-nourished, well-developed patient, in no apparent distress. SKIN: Skin with blisters on bilateral LE, upper back. Erythema on right thigh. Bilateral LE edema right more than left with mild erythema. Ecchymosis. HEAD: Atraumatic. Normocephalic. No temporal or scalp tenderness. EYES: Pupils equal round and reactive. Extraocular motions intact. No scleral icterus. No injection or drainage. ENT: Nose without bleeding, purulent drainage or septal hematoma. Throat without erythema, tonsillar hypertrophy or exudate. Uvula midline. Airway patent. NECK: Trachea midline. Supple, nontender, no meningeal signs. CARDIOVASCULAR: HS audible. No murmur appreciated. RESPIRATORY: Clear to auscultation. Breath sounds equal bilaterally. No wheezes , rales, or rhonchi. GASTROINTESTINAL: Abdomen soft, non-tender, nondistended. MUSCULOSKELETAL: per skin. No joint effusions Sacrum: skin erythema but no breaks noted. NEUROLOGICAL: Awake and alert. Grossly non focal Psych: cooperative IV line sites with no e/o infection. Assessment & Plan Remarks Septic Shock present on admission. GNR bacteremia GNR complicated UTI with urinary obstruction. h/o recurrent Cdiff possible Cdiff Colitis due to abdominal pain and tenderness. Bilateral LE cellulitis with blisters ? Strep. Acute renal failure: sepsis, prerenal, urinary obstruction. Elevated LFTs: sepsis related. Urinary obstruction Hypoalbuminemia: ? nutritional Recs: Continue Cefepime IV Continue oral flagyl (better for cdiff for local availability) CT non contrast abdomen: no colitis, no stone or hydronephrosis. Follow cultures Follow clinically. d/w RN, pt Karla Plata MD Oct 17, 2016 17:54
[2016-10-17] MEDS: cefTRIAXone INJ 2,000 MG in SODIUM CHLORIDE 0.9% INJ 100 ML IV SCH (21:52)
[2016-10-18] VITALS (10 sets, daily range): BP systolic 103–133; BP diastolic 63–69; PULSE 82–103; RESP 18–20; TEMP 97.4–98.2; O2SAT 94–97
[2016-10-18] MEDS: CHLORHEXIDINE GLUCONATE 2 % 1 PACK (2 CLOTHS)(taper/protocol) TOP SCH (04:00)
[2016-10-18] MEDS: metroNIDAZOLE 500 MG TAB PO SCH ×3 (05:24→23:46)
[2016-10-18 05:54] LABS: MEAN CELL VOLUME 88.1 FL (80.0-100.0); MEAN CORPUSCULAR HEMOGLOBIN 29.6 PG (27.0-34.0); MEAN CORPUSCULAR HGB CONC 33.6 % (32.0-36.0); PLATELET COUNT 365 TH/MM3 (150-450); RED CELL DISTRIBUTION WIDTH 16.5 % (11.6-17.2); REVIEW FLAG FINAL; WHITE BLOOD COUNT 14.8 TH/MM3 (4.0-11.0)
[2016-10-18 06:06] LABS: INTERNATIONAL NORMALIZED RATIO 1.8 RATIO
[2016-10-18 06:08] LABS: BICARBONATE 32.7 MEQ/L (21.0-32.0)
[2016-10-18] MEDS: INSULIN ASPART SUPPLEMENTAL SCALE SQ SCH ×4 (06:09→21:00)
[2016-10-18] MEDS: RESP: ALBUTEROL 2.5 MG/IPRATROPIUM 0.5 MG NEB (SCH) NEB ×4 (08:28→19:54)
[2016-10-18] MEDS: BUMETANIDE INJ 1 MG/4 ML VIAL IV PUSH SCH ×2 (09:00→17:39)
[2016-10-18] MEDS: NYSTATIN 100,000 U/GM PWD 15 GM BTL TOPICAL SCH ×2 (09:00→23:46)
[2016-10-18] MEDS: DILTIAZEM HCL 30 MG TAB PO SCH ×4 (09:00→23:45)
[2016-10-18] MEDS: SODIUM CHLORIDE 0.9% FLUSH 5 ML FLUSH FLUSH SCH ×2 (09:00→23:45)
--- NOTE | 2016-10-18 10:45 | HHI.PR ---
Subjective Subjective Remarks Cough No chest pain Mild dyspnea Productive sputum, thick white creamy No fever Review of Systems Constitutional Constitutional Remarks 10 point ROS done. Positives is noted on record otherwise negative Pulmonary Respiratory: Coughing, Shortness of Breath Genitourinary Remarks Burgos catheter Musculoskeletal MS: Weakness, Stiffness MS Remarks Debility Integumentary Skin: Wounds (bilateral lower extremities, mild erythema left lower leg, cellulitis dressings intact) Psychiatric Psychiatric: Anxiety (mild) Vitals/Results Intake & Output 10/17/16 10/17/16 10/18/16 15:00 23:00 07:00 Intake Total 720 ml 480 ml 480 ml Output Total 1750 ml 2850 ml 1850 ml Balance -1030 ml -2370 ml -1370 ml Intake Oral 720 ml 360 ml 480 ml IV Total 120 ml Output Urine Total 1750 ml 2850 ml 1850 ml Vital Signs Vital Signs Date Time Temp Pulse Resp B/P Pulse Ox O2 Delivery O2 Flow Rate FiO2 10/18/16 08:28 96 Nasal Cannula 2.00 10/18/16 08:00 97.4 96 18 106/63 96 10/18/16 04:00 98.0 88 18 119/69 95 10/18/16 00:00 98.1 103 20 133/66 94 10/17/16 23:02 94 Nasal Cannula 2.00 10/17/16 20:00 94 10/17/16 20:00 97.5 85 20 109/55 95 10/17/16 16:00 97.0 90 22 111/66 96 10/17/16 13:50 20 10/17/16 12:00 98.2 120 22 112/70 95 CBC/BMP: 10/18/16 0530 10/18/16 0530 Lab Results Laboratory Tests Test 10/18/16 05:30 White Blood Count 14.8 TH/MM3 Red Blood Count 3.30 MIL/MM3 Hemoglobin 9.7 GM/DL Hematocrit 29.0 % Mean Corpuscular Volume 88.1 FL Mean Corpuscular Hemoglobin 29.6 PG Mean Corpuscular Hemoglobin 33.6 % Concent Red Cell Distribution Width 16.5 % Platelet Count 365 TH/MM3 Mean Platelet Volume 8.1 FL Prothrombin Time 20.0 SEC Prothromb Time International 1.8 RATIO Ratio Sodium Level 138 MEQ/L Potassium Level 4.0 MEQ/L Chloride Level 100 MEQ/L Carbon Dioxide Level 32.7 MEQ/L Anion Gap 5 MEQ/L Blood Urea Nitrogen 50 MG/DL Creatinine 3.07 MG/DL Estimat Glomerular Filtration 20 ML/MIN Rate Random Glucose 93 MG/DL Calcium Level 7.7 MG/DL Imaging Remarks Last Impressions Chest X-Ray 10/16/16 0600 Signed Impressions: Service Date/Time: October 03:59 - CONCLUSION: Worsening bibasilar consolidation and small effusions. Daron Crawley MD Abdomen/Pelvis CT 10/14/16 0000 Signed Impressions: Service Date/Time: Friday, October 14, 2016 10:14 - CONCLUSION: 1. No evidence of colitis or colonic wall thickening. 2. Solid organs are unremarkable except for a bilobed cyst midpole left kidney. No evidence of renal obstruction. Diffuse body wall edema. Guevara Swain MD Current Medications Active Medications Ceftriaxone Sodium/Sodium Chloride (Rocephin Inj/NS Inj) 100 ml @ 200 mls/hr Q24H IV Last administered on 10/17/16 21:52; Admin Dose 200 MLS/HR; Start at 20:00 Diltiazem HCl 60 mg 60 mg QID PO Last administered on 10/18/16 09:00; Admin Dose 60 MG; Start 10/17/16 at 13:00 Nystatin (Mycostatin Powder) 1 applic Q12HR TOPICAL Last administered on 09:00; Admin Dose 1 APPLIC; Start 10/17/16 at 12:30 Physical Exam General General Appearance: No Acute Distress, Comfortable, Malnourished Eyes Eye Exam: Pupils Equal, Pupils Reactive Ears & Nose Ears & Nose Exam: Nasal Mucosa [place] Throat Throat Exam: Oral Mucosa [place] & Moist Neck Neck Exam: Neck Supple Pulmonary Resp Exam: Breath Sounds Equal, Crackles, Rhonchi, Sputum, Diminished Breath Sounds Resp Remarks Cough with productive thick creamy sputum Cough worse with eating Cardiology CV Exam: Good Perfusion, Irregular Gastrointestinal/Abdomen GI Exam: Soft, Non-Tender, Bowel Sounds Present, Non-Distended Genitourinary Exam: Clear Urine Musculoskeletal MS Exam: Joints Intact, Normal Tone Extremeties Extremities Exam: Pedal Pulses Palpable, Pitting Edema, Dependent Edema Neurologic Neuro Exam: Alert, Awake, Oriented, Speech Clear, Moving All Extremities, No Focal Deficits Psychiatric Psych Exam: Appropriate Responses VTE Prophylaxis VTE Prophylaxis Meds: Coumadin Assessment/Plan Assessment/Plan ASSESSMENT AND PLAN 1. Sepsis 2. Atrial fibrillation with RVR 3. Acute kidney injury with renal insufficiency 4. Hyperkalemia 5. Coronary artery disease 6. UTI 7. Severe protein calorie malnutrition 8. Dehydration 9. PNA 10. Recent cdiff 11. Scrotal edema, improving 12. Leg cellulitis Plan continue with abx Ecoli blood and urine appreciate ID input Leukocytosis trending down, improving continue with Nasal cannula oxygen DuoNeb q 6 PRN Monitor breath sounds which are decreased bilateral, swallow eval for possible aspiration afib, HR up, 120 increase Cardizem 60 mg po QID stools neg. for cdiff, hx recurrent C. difficile colitis PO Flagyl Acute on chronic kidney disease Monitor renal function closely. [place] catheter. Nephrology following continue Bumex IV continue Coumadin follow INR S/P 2 units of FFP 10/14 to facilitate central line placement Anemia S/P 2 units PRBC hemoglobin stable today Continue with Coumadin for DVT prophylaxis keep burgos in place Keep TLC for now, on abx poor IV access PT eval and tx , add ST for swallow eval OOB, patient hasn't been walking, but needs to improved stamina. Continue to monitor labs D/W RN D/W Dr. Deglado D/W pt This patient was seen by myself and Dr. Delgado, this note is written on his behalf. Rosina Hall Oct 18, 2016 10:45
--- NOTE | 2016-10-18 18:34 | HHI.NPPN ---
Subjective General Problems: Anemia, Edema Renal Failure: Chronic, Acute Additional Remarks Ongoing cough with sputum Review of Systems General Constitutional: Fatigue Cardiovascular Cardiac: Edema Gastrointestinal Gastrointestinal: Abdominal Pain, Nausea & Vomiting Musculoskeletal MS: Pain/Stiffness Objective Data Data 10/17/16 10/18/16 19:00 07:00 Intake Total 720 ml 960 ml Output Total 1750 ml 4700 ml Balance -1030 ml -3740 ml Intake Oral 720 ml 840 ml IV Total 120 ml Output Urine Total 1750 ml 4700 ml Vital Signs Date Time Temp Pulse Resp B/P Pulse Ox O2 Delivery O2 Flow Rate FiO2 10/18/16 16:00 98.2 95 18 105/63 96 10/18/16 12:00 98.2 98 18 110/64 96 10/18/16 08:28 96 Nasal Cannula 2.00 10/18/16 08:00 97.4 96 18 106/63 96 10/18/16 08:00 96 10/18/16 04:00 98.0 88 18 119/69 95 10/18/16 00:00 98.1 103 20 133/66 94 10/17/16 23:02 94 Nasal Cannula 2.00 10/17/16 20:00 94 10/17/16 20:00 97.5 85 20 109/55 95 -: 10/18/16 0530 10/18/16 0530 Tubes & Lines: [place] Tubes & Lines Comment TLC right IJ Physical Exam General Appearance: No Acute Distress, Comfortable, Malnourished Eyes Eye Exam: Pupils Equal, Pupils Reactive Ears & Nose Ears & Nose Exam: Nasal Mucosa [place] Throat Throat Exam: Oral Mucosa [place] & Moist Neck Neck Exam: Neck Supple Pulmonary Resp Exam: Breath Sounds Equal, Crackles, Rhonchi, Sputum, Diminished Breath Sounds Cardiology CV Exam: Good Perfusion, Irregular Gastrointestinal/Abdomen GI Exam: Soft, Non-Tender, Bowel Sounds Present, Non-Distended Genitourinary Exam: Clear Urine Musculoskeletal MS Exam: Joints Intact, Normal Tone Extremeties Extremities Exam: Pedal Pulses Palpable, Pitting Edema, Dependent Edema Neurologic Neuro Exam: Alert, Awake, Oriented, Speech Clear, Moving All Extremities, No Focal Deficits Psychiatric Psych Exam: Appropriate Responses Assessment/Plan Discussed Condition With: Patient Assessment Summary: Anemia of CKD, Hypotension Problem List: (1) RAVEN (acute kidney injury) Plan: Multifactorial: he had obstructive uropathy on arrival, which was corrected with burgos placement now having good urine output also thought to ave prerenal azotemia due to sepsis, renal hypoperfusion Diuresing with Bumex 2 mg IV BID, monitor output - 6.4L/24 hours Creatinine continues to improve: 3.2-> 3.07 oral hydration adequate daily metabolic profile continue burgos catheter care, may d/c in AM and follow UOP. avoid nephrotoxins (2) Severe sepsis Plan: probable urosepsis, Blood cultures with 4/4 growing Gram negative rods; repeat BC negative ID following continue antimicrobial therapy , on cefepime and IV flagyl CT abd/pelvis without contrast negative for colitis repeat C diff negative lung sounds coarse, recommended getting Out of bed, will order incentive spirometry; CXR negative (3) Anemia Plan: hemoglobin improved, transfused PRBC this week stool for occult blood negative avoid venofer with ongoing sepsis (4) Atrial fibrillation with RVR Plan: Cardizem increased today, follow HR monitor rate, titrate to effectiveness (5) Hyperkalemia Plan: due to diminished renal clearance repeat has improved, continue to monitor Rubio Jiang MD Oct 18, 2016 18:34
[2016-10-18] MEDS: cefTRIAXone INJ 2,000 MG in SODIUM CHLORIDE 0.9% INJ 100 ML IV SCH (23:44)
[2016-10-19] VITALS (9 sets, daily range): BP systolic 99–122; BP diastolic 59–70; PULSE 92–106; RESP 16–20; TEMP 97.5–98.4; O2SAT 94–99
[2016-10-19] MEDS: CHLORHEXIDINE GLUCONATE 2 % 1 PACK (2 CLOTHS)(taper/protocol) TOP SCH (04:00)
[2016-10-19] MEDS: metroNIDAZOLE 500 MG TAB PO SCH ×3 (04:37→20:03)
[2016-10-19 05:11] LABS: INTERNATIONAL NORMALIZED RATIO 1.6 RATIO; PROTHROMBIN TIME - PATIENT 18.4 SEC (9.8-11.6)
[2016-10-19] MEDS: INSULIN ASPART SUPPLEMENTAL SCALE SQ SCH ×4 (05:29→21:00)
[2016-10-19] MEDS: RESP: ALBUTEROL 2.5 MG/IPRATROPIUM 0.5 MG NEB (SCH) NEB ×4 (08:22→19:18)
[2016-10-19] MEDS: SODIUM CHLORIDE 0.9% FLUSH 5 ML FLUSH FLUSH SCH ×2 (09:29→20:03)
[2016-10-19] MEDS: DILTIAZEM HCL 30 MG TAB PO SCH ×4 (09:29→20:02)
[2016-10-19] MEDS: NYSTATIN 100,000 U/GM PWD 15 GM BTL TOPICAL SCH ×2 (09:29→20:03)
[2016-10-19] MEDS: BUMETANIDE INJ 1 MG/4 ML VIAL IV PUSH SCH ×2 (09:29→16:49)
--- NOTE | 2016-10-19 10:36 | HHI.PR ---
Subjective Subjective Remarks Cough No chest pain Mild dyspnea, exertional Productive sputum, thick white creamy, minimal amounts today No fever Generalized weakness Review of Systems Constitutional Constitutional: Weakness Constitutional Remarks 10 point ROS done. Positives is noted on record otherwise negative Pulmonary Respiratory: Coughing, Shortness of Breath Pulmonary Remarks Exertional Genitourinary Remarks Lambert catheter Musculoskeletal MS: Weakness, Stiffness MS Remarks Debility Integumentary Skin: Wounds (bilateral lower extremities, mild erythema left lower leg, cellulitis dressings intact) Psychiatric Psychiatric: Anxiety (mild) Vitals/Results Intake & Output 10/18/16 10/18/16 10/19/16 15:00 23:00 07:00 Intake Total 720 ml 102 ml 640 ml Output Total 2900 ml 2000 ml Balance -2180 ml 102 ml -1360 ml Intake Oral 720 ml 640 ml IV Total 102 ml Output Urine Total 2900 ml 2000 ml # Bowel Movements 1 Vital Signs Vital Signs Date Time Temp Pulse Resp B/P Pulse Ox O2 Delivery O2 Flow Rate FiO2 10/19/16 08:24 96 Nasal Cannula 2.00 10/19/16 08:00 97.5 106 18 100/60 97 10/19/16 04:00 98.0 92 16 109/63 94 10/19/16 00:00 98.2 102 18 122/70 96 10/18/16 22:35 82 10/18/16 20:00 97.9 100 20 103/65 95 10/18/16 19:54 95 Nasal Cannula 2.00 10/18/16 16:00 98.2 95 18 105/63 96 10/18/16 12:00 98.2 98 18 110/64 96 CBC/BMP: 10/18/16 0530 10/18/16 0530 Lab Results Laboratory Tests Test 10/19/16 04:55 Prothrombin Time 18.4 SEC Prothromb Time International 1.6 RATIO Ratio Imaging Remarks Last Impressions Chest X-Ray 10/16/16 0600 Signed Impressions: Service Date/Time: October 03:59 - CONCLUSION: Worsening bibasilar consolidation and small effusions. Daron Crawley MD Abdomen/Pelvis CT 10/14/16 0000 Signed Impressions: Service Date/Time: Friday, October 14, 2016 10:14 - CONCLUSION: 1. No evidence of colitis or colonic wall thickening. 2. Solid organs are unremarkable except for a bilobed cyst [place] left kidney. No evidence of renal obstruction. Diffuse body wall edema. Guevara Swain MD Physical Exam General General Appearance: No Acute Distress, Comfortable, Malnourished Eyes Eye Exam: Pupils Equal, Pupils Reactive Ears & Nose Ears & Nose Exam: Nasal Mucosa [place] Throat Throat Exam: Oral Mucosa [place] & Moist Neck Neck Exam: Neck Supple Pulmonary Resp Exam: Breath Sounds Equal, Crackles, Rhonchi, Sputum, Diminished Breath Sounds Resp Remarks Cough with productive thick creamy sputum resolving, minimal now Cough worse with eating Cardiology CV Exam: Good Perfusion, Irregular Gastrointestinal/Abdomen GI Exam: Soft, Non-Tender, Bowel Sounds Present, Non-Distended Genitourinary Exam: Clear Urine Musculoskeletal MS Exam: Joints Intact, Normal Tone Extremeties Extremities Exam: Pedal Pulses Palpable, Pitting Edema, Dependent Edema Neurologic Neuro Exam: Alert, Awake, Oriented, Speech Clear, Moving All Extremities, No Focal Deficits Psychiatric Psych Exam: Appropriate Responses VTE Prophylaxis VTE Prophylaxis Meds: Coumadin Assessment/Plan Assessment/Plan ASSESSMENT AND PLAN 1. Sepsis, probably urosepsis 2. Atrial fibrillation with RVR 3. Acute kidney injury with renal insufficiency 4. Hyperkalemia 5. Coronary artery disease 6. UTI 7. Severe protein calorie malnutrition 8. Dehydration 9. PNA 10. Recent cdiff 11. Scrotal edema, improving 12. 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 difficile Acute on chronic kidney disease Monitor renal function closely. Lambert catheter. Will leave in place while patient is getting IV diuretics. continue Bumex IV continue Coumadin follow INR Anemia, stable, on at her labs Continue with Coumadin for DVT prophylaxis Keep TLC for now, on abx PT eval and tx , add ST for swallow eval OOB, patient hasn't been walking, but needs to improved stamina. Continue to monitor labs D/W RN D/W Dr. Delgado D/W pt This patient was seen by myself and Dr. Delgado, this note is written on his behalf. Rosina Hall Oct 19, 2016 10:36
--- NOTE | 2016-10-19 15:51 | HHI.NPPN ---
Subjective General Problems: Anemia, Edema Renal Failure: Chronic, Acute Additional Remarks Ongoing cough with sputum Review of Systems General Constitutional: Fatigue Cardiovascular Cardiac: Edema Gastrointestinal Gastrointestinal: Abdominal Pain, Nausea & Vomiting Musculoskeletal MS: Pain/Stiffness Objective Data Data 10/18/16 10/19/16 19:00 07:00 Intake Total 720 ml 742 ml Output Total 2900 ml 2000 ml Balance -2180 ml -1258 ml Intake Oral 720 ml 640 ml IV Total 102 ml Output Urine Total 2900 ml 2000 ml # Bowel Movements 1 Vital Signs Date Time Temp Pulse Resp B/P Pulse Ox O2 Delivery O2 Flow Rate FiO2 10/19/16 12:00 97.8 103 18 99/65 99 10/19/16 08:24 96 Nasal Cannula 2.00 10/19/16 08:00 97.5 106 18 100/60 97 10/19/16 04:00 98.0 92 16 109/63 94 10/19/16 00:00 98.2 102 18 122/70 96 10/18/16 22:35 82 10/18/16 20:00 97.9 100 20 103/65 95 10/18/16 19:54 95 Nasal Cannula 2.00 10/18/16 16:00 98.2 95 18 105/63 96 -: 10/18/16 0530 10/18/16 0530 Tubes & Lines: [place] Tubes & Lines Comment TLC right IJ Physical Exam General Appearance: No Acute Distress, Comfortable, Malnourished Eyes Eye Exam: Pupils Equal, Pupils Reactive Ears & Nose Ears & Nose Exam: Nasal Mucosa [place] Throat Throat Exam: Oral Mucosa [place] & Moist Neck Neck Exam: Neck Supple Pulmonary Resp Exam: Breath Sounds Equal, Crackles, Rhonchi, Sputum, Diminished Breath Sounds Cardiology CV Exam: Good Perfusion, Irregular Gastrointestinal/Abdomen GI Exam: Soft, Non-Tender, Bowel Sounds Present, Non-Distended Genitourinary Exam: Clear Urine Musculoskeletal MS Exam: Joints Intact, Normal Tone Extremeties Extremities Exam: Pedal Pulses Palpable, Pitting Edema, Dependent Edema Neurologic Neuro Exam: Alert, Awake, Oriented, Speech Clear, Moving All Extremities, No Focal Deficits Psychiatric Psych Exam: Appropriate Responses Assessment/Plan Discussed Condition With: Patient Assessment Summary: Anemia of CKD, Hypotension Problem List: (1) RAVEN (acute kidney injury) Plan: Multifactorial: he had obstructive uropathy on arrival, which was corrected with burgos placement now having good urine output also thought to ave prerenal azotemia due to sepsis, renal hypoperfusion Diuresing with Bumex 2 mg IV BID, monitor output - 4.9L/24 hours Creatinine continues to improve: 3.2-> 3.07 yesterday. Continue bumex for now No new labs today, will check in AM. oral hydration adequate daily metabolic profile continue burgos catheter care, may d/c [place] in AM and follow UOP if continued improvement. avoid nephrotoxins (2) Severe sepsis Plan: probable urosepsis, Blood cultures with 4/4 growing Gram negative rods; repeat BC negative ID following continue antimicrobial therapy , on cefepime and IV flagyl CT abd/pelvis without contrast negative for colitis repeat C diff negative (3) Anemia Plan: hemoglobin improved, transfused PRBC this week stool for occult blood negative avoid venofer with ongoing sepsis (4) Atrial fibrillation with RVR Plan: Cardizem increased , follow HR monitor rate, titrate to effectiveness (5) Hyperkalemia Plan: due to diminished renal clearance repeat has improved, continue to monitor Rubio Jiang MD Oct 19, 2016 15:51
[2016-10-19] MEDS: cefTRIAXone INJ 2,000 MG in SODIUM CHLORIDE 0.9% INJ 100 ML IV SCH (20:02)
[2016-10-20] VITALS (9 sets, daily range): BP systolic 101–116; BP diastolic 57–63; PULSE 96–105; RESP 18–22; TEMP 98–98.1; O2SAT 91–97
[2016-10-20] MEDS ORDERED: ALTEPLASE RECOMBINANT 2 MG VIAL OTHER SCH (02:45)
[2016-10-20 04:45] LABS: AUTOMATED NEUTROPHIL # 11.1 TH/MM3 (1.8-7.7); BASOPHIL # 0.1 TH/MM3 (0-0.2); BASOPHIL % 0.5 % (0.0-2.0); EOSINOPHIL # 0.1 TH/MM3 (0-0.4); HEMATOCRIT 28.4 % (39.0-51.0); LYMPH % 7.7 % (9.0-44.0); MEAN CELL VOLUME 87.8 FL (80.0-100.0); MEAN CORPUSCULAR HEMOGLOBIN 29.7 PG (27.0-34.0); MEAN CORPUSCULAR HGB CONC 33.9 % (32.0-36.0); MONO % 8.2 % (0.0-8.0); NEUT % 82.6 % (16.0-70.0); PLATELET COUNT 332 TH/MM3 (150-450); RED BLOOD COUNT 3.24 MIL/MM3 (4.50-5.90); RED CELL DISTRIBUTION WIDTH 16.4 % (11.6-17.2); WHITE BLOOD COUNT 13.5 TH/MM3 (4.0-11.0)
[2016-10-20 04:54] LABS: HEMO FLAGS AUTO DIFF
[2016-10-20] MEDS: metroNIDAZOLE 500 MG TAB PO SCH (04:56)
[2016-10-20 05:11] LABS: BICARBONATE 35.1 MEQ/L (21.0-32.0); POTASSIUM 3.4 MEQ/L (3.5-5.1)
[2016-10-20] MEDS: INSULIN ASPART SUPPLEMENTAL SCALE SQ SCH ×4 (05:53→21:19)
[2016-10-20 08:02] LABS: BANDS 3 % (0-6); EOSINOPHILS 1 % (0-4); METAMYELOCYTES 1 % (0-1); MYELOCYTES 1 % (0-0); NEUTROPHIL # MANUAL DIFF 12.2 TH/MM3 (1.8-7.7); POLYS (SEG NEUTROPHILS) 85 % (16-70); WBC DIFF SAMPLE 100
[2016-10-20 08:03] LABS: TARGET CELLS 1+ (NORMAL)
[2016-10-20 08:04] LABS: PLATELET ESTIMATE SMEAR NORMAL (NORMAL); PLATELET MORPHOLOGY NORMAL (NORMAL); SCAN/DIFF FINAL DIFF MANUAL
[2016-10-20] MEDS ORDERED: POTASSIUM CHLORIDE 20 MEQ CONTROLLED RELEASE TAB PO ONE (08:45)
[2016-10-20] MEDS: RESP: ALBUTEROL 2.5 MG/IPRATROPIUM 0.5 MG NEB (SCH) NEB ×4 (08:53→19:50)
[2016-10-20] MEDS: BUMETANIDE INJ 1 MG/4 ML VIAL IV PUSH SCH ×2 (09:02→17:42)
[2016-10-20] MEDS: DILTIAZEM HCL 30 MG TAB PO SCH ×4 (09:02→21:19)
[2016-10-20] MEDS: NYSTATIN 100,000 U/GM PWD 15 GM BTL TOPICAL SCH ×2 (09:02→21:20)
[2016-10-20] MEDS: SODIUM CHLORIDE 0.9% FLUSH 5 ML FLUSH FLUSH SCH ×2 (09:03→21:19)
--- NOTE | 2016-10-20 10:34 | HHI.NPPN ---
Subjective General Problems: Anemia, Edema Renal Failure: Chronic, Acute Interval History Lying in bed. Had BM today. Renal function is better. (Monika Martinez) Review of Systems General Constitutional: Fatigue (Monika Martinez) Cardiovascular Cardiac: Edema (Monika Martinez) Gastrointestinal Gastrointestinal: Abdominal Pain, Nausea & Vomiting (Monika Martinez) Musculoskeletal MS: Pain/Stiffness (Monika Martinez) Objective Data Data 10/19/16 10/20/16 19:00 07:00 Intake Total 480 ml 1360 ml Output Total 1850 ml 2200 ml Balance -1370 ml -840 ml Intake Oral 480 ml 1360 ml Output Urine Total 1850 ml 2200 ml # Bowel Movements 2 0 Vital Signs Date Time Temp Pulse Resp B/P Pulse Ox O2 Delivery O2 Flow Rate FiO2 10/20/16 04:00 98.0 96 20 107/58 96 10/20/16 00:00 98.0 96 20 101/59 95 10/19/16 20:00 100 10/19/16 20:00 98.4 98 20 110/68 95 10/19/16 16:37 96 Nasal Cannula 2.00 10/19/16 16:00 98.1 98 20 109/59 96 10/19/16 12:00 97.8 103 18 99/65 99 (Monika Martinez) -: 10/20/16 0420 10/20/16 0420 Tubes & Lines: [place] Tubes & Lines Comment TLC right IJ (Monika Martinez) Physical Exam General Appearance: No Acute Distress, Comfortable, Malnourished (Monika Martinez) Eyes Eye Exam: Pupils Equal, Pupils Reactive (Monika Martinez) Ears & Nose Ears & Nose Exam: Nasal Mucosa [place] (Monika Martinez) Throat Throat Exam: Oral Mucosa [place] & Moist Throat Remarks very poor dentition/broken teeth (Monika Martinez) Neck Neck Exam: Neck Supple (Monika Martinez) Pulmonary Resp Exam: Breath Sounds Equal, Crackles, Rhonchi, Sputum, Diminished Breath Sounds (Monika Martinez) Cardiology CV Exam: Good Perfusion, Irregular, Murmur (Monika Martinez) Gastrointestinal/Abdomen GI Exam: Soft, Non-Tender, Bowel Sounds Present, Positive Bowel Movement, Non- Distended (Monika Martinez) Genitourinary Exam: Clear Urine (Monika Martinez) Musculoskeletal MS Exam: Joints Intact, Normal Tone (Monika Martinez) Integumentary Skin Exam: Warm, Dry, Ulcer(s) Skin Remarks blisters to lower extremities, dressing inplace bilaterally upper extremity ecchymosis (Monika Martinez) Extremeties Extremities Exam: Pedal Pulses Palpable, Pitting Edema, Dependent Edema Extremeties Remarks edema improving (Monika Martinez) Neurologic Neuro Exam: Alert, Awake, Oriented, Speech Clear, Moving All Extremities, No Focal Deficits (Monika Martinez) Psychiatric Psych Exam: Appropriate Responses (Monika Martinez) Assessment/Plan Discussed Condition With: Patient Assessment Summary: Anemia of CKD, Hypotension Problem List: (1) RAVEN (acute kidney injury) Plan: Multifactorial: he had obstructive uropathy on arrival, which was corrected with burgos placement now having good urine output also thought to ave prerenal azotemia due to sepsis, renal hypoperfusion Diuresing with Bumex 2 mg IV BID, weight improving, decreased dose to 1 mg BID Creatinine continues to improve oral hydration adequate, no IVF required daily metabolic profile attempt voiding trial today, bladder scan if no UOP in 6 hrs, replace if over 400 ml, spoke with nurse avoid nephrotoxins (2) Severe sepsis Plan: probable urosepsis, Blood cultures with 4/4 growing Gram negative rods; repeat BC negative ID following continue antimicrobial therapy , on cefepime CT abd/pelvis without contrast negative for colitis, on flagyl repeat C diff negative (3) Anemia Plan: hemoglobin stable stool for occult blood negative avoid venofer with ongoing sepsis (4) Atrial fibrillation with RVR Plan: on Cardizem HR around 100 monitor rate, titrate to effectiveness (5) Hyperkalemia Plan: due to diminished renal clearance repeat has improved, continue to monitor (Monika Martinez) Plan patient was seen and examined. Renal function has improved. Fluid overload has improved. Reduce Bumex. (Ruben Callahan MD) Monika Martinez Oct 20, 2016 10:14 Ruben Callahan MD Oct 21, 2016 10:04
--- NOTE | 2016-10-20 10:38 | HHI.PR ---
Subjective Subjective Remarks pleasant no cp no sob less stools, had one today no fever Review of Systems Constitutional Constitutional: Weakness Constitutional Remarks 12 point ROS completed, negative except as noted above Pulmonary Respiratory: Coughing, Shortness of Breath Musculoskeletal MS: Weakness, Stiffness Integumentary Skin: Wounds (bilateral lower extremities, mild erythema left lower leg, cellulitis dressings intact) Psychiatric Psychiatric: Anxiety (mild) Vitals/Results Intake & Output 10/19/16 10/19/16 10/20/16 15:00 23:00 07:00 Intake Total 480 ml 280 ml 1080 ml Output Total 1850 ml 2200 ml Balance -1370 ml -1920 ml 1080 ml Intake Oral 480 ml 280 ml 1080 ml Output Urine Total 1850 ml 2200 ml # Bowel Movements 2 0 Vital Signs Vital Signs Date Time Temp Pulse Resp B/P Pulse Ox O2 Delivery O2 Flow Rate FiO2 10/20/16 04:00 98.0 96 20 107/58 96 10/20/16 00:00 98.0 96 20 101/59 95 10/19/16 20:00 100 10/19/16 20:00 98.4 98 20 110/68 95 10/19/16 16:37 96 Nasal Cannula 2.00 10/19/16 16:00 98.1 98 20 109/59 96 10/19/16 12:00 97.8 103 18 99/65 99 CBC/BMP: 10/20/16 0420 10/20/16 0420 Lab Results Laboratory Tests Test 10/20/16 04:20 White Blood Count 13.5 TH/MM3 Red Blood Count 3.24 MIL/MM3 Hemoglobin 9.6 GM/DL Hematocrit 28.4 % Mean Corpuscular Volume 87.8 FL Mean Corpuscular Hemoglobin 29.7 PG Mean Corpuscular Hemoglobin 33.9 % Concent Red Cell Distribution Width 16.4 % Platelet Count 332 TH/MM3 Mean Platelet Volume 7.8 FL Neutrophils (%) (Auto) 82.6 % Lymphocytes (%) (Auto) 7.7 % Monocytes (%) (Auto) 8.2 % Eosinophils (%) (Auto) 1.0 % Basophils (%) (Auto) 0.5 % Neutrophils # (Auto) 11.1 TH/MM3 Lymphocytes # (Auto) 1.0 TH/MM3 Monocytes # (Auto) 1.1 TH/MM3 Eosinophils # (Auto) 0.1 TH/MM3 Basophils # (Auto) 0.1 TH/MM3 CBC Comment AUTO DIFF Differential Total Cells 100 Counted Neutrophils % (Manual) 85 % Band Neutrophils % 3 % Lymphocytes % 7 % Monocytes % 2 % Eosinophils % 1 % Neutrophils # (Manual) 12.2 TH/MM3 Metamyelocytes 1 % Myelocytes 1 % Differential Comment FINAL DIFF MANUAL Platelet Estimate NORMAL Platelet Morphology Comment NORMAL Target Cells 1+ Sodium Level 139 MEQ/L Potassium Level 3.4 MEQ/L Chloride Level 95 MEQ/L Carbon Dioxide Level 35.1 MEQ/L Anion Gap 9 MEQ/L Blood Urea Nitrogen 45 MG/DL Creatinine 2.67 MG/DL Estimat Glomerular Filtration 23 ML/MIN Rate Random Glucose 96 MG/DL Calcium Level 7.8 MG/DL Phosphorus Level 2.7 MG/DL Albumin 2.1 GM/DL Physical Exam General General Appearance: No Acute Distress, Comfortable, Malnourished Eyes Eye Exam: Pupils Equal, Pupils Reactive Ears & Nose Ears & Nose Exam: Nasal Mucosa [place] Throat Throat Exam: Oral Mucosa [place] & Moist Neck Neck Exam: Neck Supple Pulmonary Resp Exam: Breath Sounds Equal, Diminished Breath Sounds Cardiology CV Exam: Good Perfusion, Irregular, Murmur Gastrointestinal/Abdomen GI Exam: Soft, Non-Tender, Bowel Sounds Present, Positive Bowel Movement, Non- Distended Genitourinary Exam: Clear Urine Remarks EPSTEIN scrotal swelling Musculoskeletal MS Exam: Joints Intact, Normal Tone Integumentary Skin Exam: Warm, Dry, Ulcer(s) Skin Remarks skin tears to both legs fluid filled blebs noted erythema up left thigh rash to groin Extremeties Extremities Exam: Pedal Pulses Palpable, Pitting Edema, Dependent Edema Neurologic Neuro Exam: Alert, Awake, Oriented, Speech Clear, Moving All Extremities, No Focal Deficits Psychiatric Psych Exam: Appropriate Responses VTE Prophylaxis VTE Prophylaxis Meds: Coumadin Assessment/Plan Assessment/Plan 1. Sepsis 2. Atrial fibrillation with RVR 3. Acute kidney injury with renal insufficiency 4. Hyperkalemia 5. Coronary artery disease 6. UTI 7. Severe protein calorie malnutrition 8. Dehydration 9. PNA 10. Recent cdiff 11. Scrotal edema 12. Leg cellulitis Plan continue with abx Ecoli blood and urine appreciate ID input continue with Nasal cannula oxygen DuoNeb q 6 PRN afib, stable Continue Cardizem 60 mg po QID stools neg. for cdiff, hx recurrent C. difficile colitis PO Flagyl Acute on chronic kidney disease Monitor renal function closely. Epstein catheter. Nephrology following continue Bumex improving continue Coumadin follow INR S/P 2 units of FFP 10/14 to facilitate central line placement Anemia S/P 2 units PRBC hemoglobin stable today Continue with Coumadin for DVT prophylaxis keep epstein in place Keep TLC for now, on abx poor IV access PT eval and tx OOB CM for DC planning, hopefully dc tomorrow D/W RN D/W Dr. Vasquez D/W pt This patient was seen by myself and Dr. Vasquez, this note is written on his behalf. Gi Royal Oct 20, 2016 10:37
--- NOTE | 2016-10-20 12:48 | HHI.IDPN ---
Subjective Subjective Remarks is a 76 y/o CM resident of local residential who was brought into the ED at [facility]. Prior history of Shewanella bacteremia, Cdiff Colitis , Left arm cellulitis in Jul 2016. PMHx is also significant for Afib on coumadin and digoxin. ID following for Mment of Septic Shock, h/o Cdiff, Possible complicated UTI, GNR bacteremia. Overnight events reviewed. No fever No diarrhea No rash Cr improving. Bladder training and PVR assessment today per nephrology. Antibiotics Ceftriaxone IV Flagyl oral. Lines Line sites with no e/o infection Past Medical History reviewed Allergies: Coded Allergies: No Known Allergies (Verified , 10/13/16) Objective . Vital Signs Date Time Temp Pulse Resp B/P Pulse Ox O2 Delivery O2 Flow Rate FiO2 10/20/16 11:27 97 Nasal Cannula 2.00 10/20/16 04:00 98.0 96 20 107/58 96 10/20/16 00:00 98.0 96 20 101/59 95 10/19/16 20:00 100 10/19/16 20:00 98.4 98 20 110/68 95 10/19/16 16:37 96 Nasal Cannula 2.00 10/19/16 16:00 98.1 98 20 109/59 96 10/19/16 10/19/16 10/20/16 15:00 23:00 07:00 Intake Total 480 ml 280 ml 1080 ml Output Total 1850 ml 2200 ml Balance -1370 ml -1920 ml 1080 ml Intake Oral 480 ml 280 ml 1080 ml Output Urine Total 1850 ml 2200 ml # Bowel Movements 2 0 . Laboratory Tests Test 10/20/16 04:20 White Blood Count 13.5 TH/MM3 Red Blood Count 3.24 MIL/MM3 Hemoglobin 9.6 GM/DL Hematocrit 28.4 % Mean Corpuscular Volume 87.8 FL Mean Corpuscular Hemoglobin 29.7 PG Mean Corpuscular Hemoglobin 33.9 % Concent Red Cell Distribution Width 16.4 % Platelet Count 332 TH/MM3 Mean Platelet Volume 7.8 FL Neutrophils (%) (Auto) 82.6 % Lymphocytes (%) (Auto) 7.7 % Monocytes (%) (Auto) 8.2 % Eosinophils (%) (Auto) 1.0 % Basophils (%) (Auto) 0.5 % Neutrophils # (Auto) 11.1 TH/MM3 Lymphocytes # (Auto) 1.0 TH/MM3 Monocytes # (Auto) 1.1 TH/MM3 Eosinophils # (Auto) 0.1 TH/MM3 Basophils # (Auto) 0.1 TH/MM3 CBC Comment AUTO DIFF Differential Total Cells 100 Counted Neutrophils % (Manual) 85 % Band Neutrophils % 3 % Lymphocytes % 7 % Monocytes % 2 % Eosinophils % 1 % Neutrophils # (Manual) 12.2 TH/MM3 Metamyelocytes 1 % Myelocytes 1 % Differential Comment FINAL DIFF MANUAL Platelet Estimate NORMAL Platelet Morphology Comment NORMAL Target Cells 1+ Laboratory Tests Test 10/20/16 04:20 Sodium Level 139 MEQ/L Potassium Level 3.4 MEQ/L Chloride Level 95 MEQ/L Carbon Dioxide Level 35.1 MEQ/L Anion Gap 9 MEQ/L Blood Urea Nitrogen 45 MG/DL Creatinine 2.67 MG/DL Estimat Glomerular Filtration 23 ML/MIN Rate Random Glucose 96 MG/DL Calcium Level 7.8 MG/DL Phosphorus Level 2.7 MG/DL Albumin 2.1 GM/DL Imaging Last Impressions Chest X-Ray 10/14/16 0000 Signed Impressions: Service Date/Time: Friday, October 14, 2016 12:18 - CONCLUSION: 1. Right central line in good position. No pneumothorax. 2. Mild bibasilar infiltrates. Jorden Santiago MD Abdomen/Pelvis CT 10/14/16 0000 Signed Impressions: Service Date/Time: Friday, October 14, 2016 10:14 - CONCLUSION: 1. No evidence of colitis or colonic wall thickening. 2. Solid organs are unremarkable except for a bilobed cyst midpole left kidney. No evidence of renal obstruction. Diffuse body wall edema. Guevara Swain MD Physical Exam GENERAL: This is a well-nourished, well-developed patient, in no apparent distress. SKIN: Skin with blisters on bilateral LE, upper back. Erythema on right thigh. Bilateral LE edema right more than left with mild erythema. Ecchymosis. HEAD: Atraumatic. Normocephalic. No temporal or scalp tenderness. EYES: Pupils equal round and reactive. Extraocular motions intact. No scleral icterus. No injection or drainage. ENT: Nose without bleeding, purulent drainage or septal hematoma. Throat without erythema, tonsillar hypertrophy or exudate. Uvula midline. Airway patent. NECK: Trachea midline. Supple, nontender, no meningeal signs. CARDIOVASCULAR: HS audible. No murmur appreciated. RESPIRATORY: Clear to auscultation. Breath sounds equal bilaterally. No wheezes , rales, or rhonchi. GASTROINTESTINAL: Abdomen soft, non-tender, nondistended. MUSCULOSKELETAL: per skin. No joint effusions Sacrum: skin erythema but no breaks noted. NEUROLOGICAL: Awake and alert. Grossly non focal Psych: cooperative IV line sites with no e/o infection. Assessment & Plan Remarks Septic Shock present on admission. E.coli bacteremia E.coli complicated UTI with urinary obstruction. h/o recurrent Cdiff possible Cdiff Colitis due to abdominal pain and tenderness. Bilateral LE cellulitis with blisters ? Strep. Acute renal failure: sepsis, prerenal, urinary obstruction. Elevated LFTs: sepsis related. Urinary obstruction Hypoalbuminemia: ? nutritional Recs: Continue ceftriaxone IV DC oral flagyl. Follow cultures Follow clinically. Dw Case management: Infusion orders for Ceftriaxone for 6 more days in chart. No need for PICC line. Ok to use peripheral IV or midline for IV antibiotics for SNF. Will sign off please call back if any change in clinical condition or questions. Karla Plata MD Oct 20, 2016 12:48
[2016-10-20] MEDS ORDERED: EPIN1INJ21 SQ (12:50)
[2016-10-20] MEDS ORDERED: EPIN1INJ21 IV PUSH (12:50)
[2016-10-20] MEDS ORDERED: CEFT1INJ5 IV (12:50)
[2016-10-20] MEDS ORDERED: SOLU250I IV PUSH (12:50)
--- NOTE | 2016-10-20 12:52 | HHI.FF ---
Infusion Therapy Location of Infusion Therapy: [facility] Infusion Therapy Order Patient Information Appointment Date: Oct 20, 2016 Patient Weight 93 kg Diagnosis: Diagnosis E.coli bacteremia transient E.coli UTI Coded Allergies: No Known Allergies (Verified , 10/13/16) Administer Medication Ceftriaxone 2 grams IV q 24 hours Start Treatment: Oct 20, 2016 Stop Treatment: Oct 27, 2016 Additional Information Venous access: Other (ok to use peripheral IV or midline.) Additional Instructions [x] Peripheral flush and dressing changes per protocol [x] Implanted port and central carton liner: * Implanted port: 10 ml Normal Saline followed by 5 ml Heparin 100 units/ml Heparin flush after each use and monthly to maintain. [] May leave port accessed during therapy. [] May leave peripheral site accessed for duration of therapy. [x] If patient has SOB or respiratory distress, check oxygen saturation. If less than 90% or clinical signs of respiratory distress, administer oxygen at 2 L/min. via nasal cannula and notify physician. [x] Anaphylaxis/Reaction orders: * Stop infusion. * Keep IV line open with saline flush. * Notify physician. * Monitor vital signs every 15 minutes until symptoms resolve. * Check Oxygen saturation; Oxygen at 2 L/min. via nasal cannula if less than 90% or clinical signs of respiratory distress. * Administer diphenhydramine (Benadryl) 25 mg IV STAT, (unless patient has received as pre-med). May repeat once, if necessary. * Solu-Cortef 250 mg IVP over 30-60 seconds, use 100 mg vials for each dissolution. * Epinephrine (1mg/1 ml) 0.3 mg subcutaneously or IVP now with any signs of respiratory distress. * Check with physician for new additional pre-med orders if patient is re- challenged or re-treated. [x] May remove PICC line when treatment complete, after confirming with Physician. [x] If the patient is admitted to the hospital, the ED, or transferred via [facility] , complete transfer form including medication reconciliation order sheet. Karla Plata MD Oct 20, 2016 12:52
[2016-10-20] MEDS ORDERED: POTASSIUM CL 40 MEQ/30 ML LIQ UDC PO ONE (14:00)
[2016-10-20] MEDS: cefTRIAXone INJ 2,000 MG in SODIUM CHLORIDE 0.9% INJ 100 ML IV SCH (21:19)
[2016-10-21] VITALS: BP 106/62; PULSE 102; RESP 18; TEMP 97.8; O2SAT 93
[2016-10-21 04:00] VITALS: BP 110/62; PULSE 101; RESP 18; TEMP 98.2; O2SAT 92
[2016-10-21] MEDS: INSULIN ASPART SUPPLEMENTAL SCALE SQ SCH ×2 (05:44→11:00)
[2016-10-21 06:02] LABS: HEMATOCRIT 29.3 % (39.0-51.0); MEAN CELL VOLUME 89.2 FL (80.0-100.0); MEAN CORPUSCULAR HEMOGLOBIN 29.1 PG (27.0-34.0); MEAN CORPUSCULAR HGB CONC 32.6 % (32.0-36.0); PLATELET COUNT 320 TH/MM3 (150-450); RED BLOOD COUNT 3.28 MIL/MM3 (4.50-5.90); RED CELL DISTRIBUTION WIDTH 16.7 % (11.6-17.2); REVIEW FLAG FINAL
[2016-10-21 06:33] LABS: BICARBONATE 35.1 MEQ/L (21.0-32.0); POTASSIUM 3.8 MEQ/L (3.5-5.1)
[2016-10-21 06:36] VITALS: PULSE 108
[2016-10-21] MEDS: RESP: ALBUTEROL 2.5 MG/IPRATROPIUM 0.5 MG NEB (SCH) NEB ×2 (07:58→11:59)
[2016-10-21 08:07] VITALS: BP 117/68; PULSE 100; RESP 20; TEMP 98; O2SAT 90
[2016-10-21] MEDS ORDERED: TAMSULOSIN HCL 0.4 MG CAP PO SCH (09:00)
[2016-10-21] MEDS: DILTIAZEM HCL 30 MG TAB PO SCH ×2 (09:17→12:17)
[2016-10-21] MEDS: BUMETANIDE INJ 1 MG/4 ML VIAL IV PUSH SCH (09:18)
[2016-10-21] MEDS: SODIUM CHLORIDE 0.9% FLUSH 5 ML FLUSH FLUSH SCH (09:19)
[2016-10-21] MEDS: NYSTATIN 100,000 U/GM PWD 15 GM BTL TOPICAL SCH (09:20)
[2016-10-21] MEDS ORDERED: DILT31TA PO (10:58)
[2016-10-21] MEDS ORDERED: TAMS5CAP PO (10:58)
[2016-10-21] MEDS ORDERED: BUME1TAB26 PO (10:58)
--- NOTE | 2016-10-21 10:59 | HHI.DCPOC ---
Discharge Care Plan Diagnosis: (1) Anticoagulated on Coumadin (2) Atrial fibrillation with RVR (3) Severe sepsis (4) RAVEN (acute kidney injury) (5) Hyperkalemia (6) Anemia Your Health Problems Are: Bleeding Tendency Goals to Promote Your Health * To prevent worsening of your condition and complications * To maintain your health at the optimal level Directions to Meet Your Goals Take your medications as prescribed Follow your dietary instruction Follow activity as directed Keep your appointments as scheduled Take your immunizations and boosters as scheduled If your symptoms worsen call your PCP, if no PCP go to Urgent Care Center or Emergency Room Smoking is Dangerous to Your Health. Avoid second hand smoke Call the 24-hour hour crisis hotline for domestic abuse at [facility] Oct 21, 2016 10:59
[2016-10-21] MEDS ORDERED: METOPROLOL TARTRATE 25 MG TAB PO SCH (11:30)
[2016-10-21 12:00] VITALS: O2SAT 95
[2016-10-21 12:07] VITALS: BP 104/59; PULSE 94; RESP 20; TEMP 97.7; O2SAT 95
--- NOTE | 2016-10-21 14:52 | HHI.PR ---
Subjective Subjective Remarks pleasant no cp no sob Scrotal swelling markedly improved No diarrhea Tolerating meals well, no nausea no vomiting Good urine output Review of Systems Constitutional Constitutional: Weakness Constitutional Remarks 12 point ROS completed, negative except as noted above Pulmonary Respiratory: Coughing, Shortness of Breath Musculoskeletal MS: Weakness, Stiffness Integumentary Skin: Wounds (bilateral lower extremities, mild erythema left lower leg, cellulitis dressings intact) Psychiatric Psychiatric: Anxiety (mild) Vitals/Results Intake & Output 10/20/16 10/20/16 10/21/16 15:00 23:00 07:00 Intake Total 480 ml 480 ml 240 ml Output Total 800 ml 2400 ml 600 ml Balance -320 ml -1920 ml -360 ml Intake Oral 480 ml 480 ml 240 ml Output Urine Total 800 ml 2400 ml 600 ml Bladder Scan Volume Amount 554 ml # Bowel Movements 3 0 0 Vital Signs Vital Signs Date Time Temp Pulse Resp B/P Pulse Ox O2 Delivery O2 Flow Rate FiO2 10/21/16 12:07 97.7 94 20 104/59 95 10/21/16 12:00 95 Nasal Cannula 1.00 10/21/16 08:07 98.0 100 20 117/68 90 10/21/16 06:36 108 10/21/16 04:00 98.2 101 18 110/62 92 10/21/16 00:00 97.8 102 18 106/62 93 10/20/16 20:05 98.1 98 22 102/57 92 10/20/16 19:51 91 Nasal Cannula 2.00 10/20/16 16:07 98.0 100 18 116/60 97 CBC/BMP: 10/21/16 0538 10/21/16 0538 Lab Results Laboratory Tests Test 10/21/16 05:38 White Blood Count 13.0 TH/MM3 Red Blood Count 3.28 MIL/MM3 Hemoglobin 9.6 GM/DL Hematocrit 29.3 % Mean Corpuscular Volume 89.2 FL Mean Corpuscular Hemoglobin 29.1 PG Mean Corpuscular Hemoglobin 32.6 % Concent Red Cell Distribution Width 16.7 % Platelet Count 320 TH/MM3 Mean Platelet Volume 7.9 FL Sodium Level 137 MEQ/L Potassium Level 3.8 MEQ/L Chloride Level 94 MEQ/L Carbon Dioxide Level 35.1 MEQ/L Anion Gap 8 MEQ/L Blood Urea Nitrogen 42 MG/DL Creatinine 2.62 MG/DL Estimat Glomerular Filtration 24 ML/MIN Rate Random Glucose 98 MG/DL Calcium Level 7.9 MG/DL Phosphorus Level 2.7 MG/DL Albumin 2.2 GM/DL Physical Exam General General Appearance: No Acute Distress, Comfortable, Malnourished Eyes Eye Exam: Pupils Equal, Pupils Reactive Ears & Nose Ears & Nose Exam: Nasal Mucosa Harmony Throat Throat Exam: Oral Mucosa Harmony & Moist Neck Neck Exam: Neck Supple Pulmonary Resp Exam: Breath Sounds Equal, Diminished Breath Sounds Cardiology CV Exam: Good Perfusion, Irregular, Murmur Gastrointestinal/Abdomen GI Exam: Soft, Non-Tender, Bowel Sounds Present, Positive Bowel Movement, Non- Distended Genitourinary Exam: Clear Urine Remarks EPSTEIN scrotal swelling Musculoskeletal MS Exam: Joints Intact, Normal Tone Integumentary Skin Exam: Warm, Dry, Ulcer(s) Skin Remarks skin tears to both legs fluid filled blebs noted erythema up left thigh rash to groin Extremeties Extremities Exam: Pedal Pulses Palpable, Pitting Edema, Dependent Edema Neurologic Neuro Exam: Alert, Awake, Oriented, Speech Clear, Moving All Extremities, No Focal Deficits Psychiatric Psych Exam: Appropriate Responses VTE Prophylaxis VTE Prophylaxis Meds: Coumadin Assessment/Plan Assessment/Plan 1. Sepsis 2. Atrial fibrillation with RVR 3. Acute kidney injury with renal insufficiency 4. Hyperkalemia 5. Coronary artery disease 6. UTI 7. Severe protein calorie malnutrition 8. Dehydration 9. PNA 10. Recent cdiff 11. Scrotal edema 12. Leg cellulitis Plan continue with abx Ecoli blood and urine appreciate ID input Final antibiotic recommendations provided, midline PICC order continue with Nasal cannula oxygen DuoNeb q 6 PRN afib, stable Continue Cardizem 60 mg po QID Resume beta aniya Resume Coumadin, INR 1.6 stools neg. for cdiff, hx recurrent C. difficile colitis PO Flagyl Acute on chronic kidney disease Renal function improving Bumex has been decreased per nephrology Discontinue Epstein catheter continue Coumadin follow INR 1.6 S/P 2 units of FFP 10/14 to facilitate central line placement Anemia S/P 2 units PRBC hemoglobin stable today Continue with Coumadin for DVT prophylaxis Discontinue Epstein catheter Discontinue central line after PICC line is placed Case management for discharge planning, antibiotics have been arranged Patient cleared for discharge by infectious disease, antibiotic recommendations provided Discharge to SNF today Follow-up with primary care physician Diet- heart healthy Activity as tolerated D/W RN D/W Dr. Vasquez D/W pt D/W CM D/W Dr. Plata This patient was seen by myself and Dr. Vasquez, this note is written on his behalf. [facility] Oct 21, 2016 14:52
--- NOTE | 2016-10-21 14:53 | HHI.DS ---
Discharge Summary Admission Date Oct 13, 2016 at 23:52 Discharge Date: Oct 21, 2016 Admitting Diagnosis sepsis; hyperkalemia;RAVEN; AFRVR; uti (1) Severe sepsis (2) RAVEN (acute kidney injury) (3) Anemia (4) Anticoagulated on Coumadin (5) Atrial fibrillation with RVR (6) UTI (urinary tract infection) (7) Cellulitis (8) History of atrial fibrillation (9) CAD (coronary artery disease) (10) Dehydration, severe CBC/BMP: 10/21/16 0538 10/21/16 0538 Significant Findings Laboratory Tests Test 10/19/16 10/20/16 10/21/16 04:55 04:20 05:38 Prothrombin Time 18.4 SEC (9.8-11.6) White Blood Count 13.5 TH/MM3 13.0 TH/MM3 (4.0-11.0) (4.0-11.0) Red Blood Count 3.24 MIL/MM3 3.28 MIL/MM3 (4.50-5.90) (4.50-5.90) Hemoglobin 9.6 GM/DL 9.6 GM/DL (13.0-17.0) (13.0-17.0) Hematocrit 28.4 % 29.3 % (39.0-51.0) (39.0-51.0) Neutrophils (%) (Auto) 82.6 % (16.0-70.0) Lymphocytes (%) (Auto) 7.7 % (9.0-44.0) Monocytes (%) (Auto) 8.2 % (0.0-8.0) Neutrophils # (Auto) 11.1 TH/MM3 (1.8-7.7) Monocytes # (Auto) 1.1 TH/MM3 (0-0.9) Neutrophils % (Manual) 85 % (16-70) Lymphocytes % 7 % (9-44) Neutrophils # (Manual) 12.2 TH/MM3 (1.8-7.7) Myelocytes 1 % (0-0) Target Cells 1+ (NORMAL) Potassium Level 3.4 MEQ/L (3.5-5.1) Chloride Level 95 MEQ/L 94 MEQ/L (98-107) (98-107) Carbon Dioxide Level 35.1 MEQ/L 35.1 MEQ/L (21.0-32.0) (21.0-32.0) Blood Urea Nitrogen 45 MG/DL (7-18) 42 MG/DL (7-18) Creatinine 2.67 MG/DL 2.62 MG/DL (0.60-1.30) (0.60-1.30) Estimat Glomerular Filtration 23 ML/MIN (>89) 24 ML/MIN (>89) Rate Calcium Level 7.8 MG/DL 7.9 MG/DL (8.5-10.1) (8.5-10.1) Albumin 2.1 GM/DL 2.2 GM/DL (3.4-5.0) (3.4-5.0) Imaging Last Impressions Chest X-Ray 10/16/16 0600 Signed Impressions: Service Date/Time: October 03:59 - CONCLUSION: Worsening bibasilar consolidation and small effusions. Daron Crawley MD Abdomen/Pelvis CT 10/14/16 0000 Signed Impressions: Service Date/Time: Friday, October 14, 2016 10:14 - CONCLUSION: 1. No evidence of colitis or colonic wall thickening. 2. Solid organs are unremarkable except for a bilobed cyst midpole left kidney. No evidence of renal obstruction. Diffuse body wall edema. Guevara Swain MD Hospital Course Patient is a 76-year-old male who is a resident of local [place] [facility] with history of C. difficile colitis recently discharged from hospital (Sep 2016 ), atrial fibrillation on Coumadin, coronary artery disease who was brought in via EMS with generalized weakness for the past week. He also reported having blisters predominantly to bilateral shins and redness to the right lateral thigh for 5 days. Patient had been receiving by mouth vancomycin in the [place] [facility] for C. difficile colitis. Pertinent labs on admission WBC 11.7, Alb 1.3; Cr 4.22 (baseline 2-3). Tmax was 102. Patient was started on Cardizem infusion for A. fib with RVR. Because of hypotension and lactic acid of 4.9 patient was given 2.5 L normal saline boluses but despite this he remained hypotensive and Levophed was started and rapidly titrated up to 10 mics per minute. Patient has received Zosyn IV, Vanco IV x 1 doses in the ED and hospitalist had placed patient on ceftriaxone. I have started IV Flagyl to cover for C. difficile colitis. Patient was admitted to the to the ICU, shearer screen measurer and trimmer were consulted. Patient was critically ill, was started on levo fed. Patient complain of right lower abdomen pain, CT of the abdomen and pelvis was done which was unremarkable. If itches disease was consulted for antibiotic management. Stools were ordered. Patient was noted anemic, hemoglobin drop, 2 units of blood were given. There was no evidence of GI bleeding. INR was supratherapeutic. Coumadin was held. Received 2 units of FFP 10/14 to facilitate central line placement Nephrology was consulted to assist with acute renal injury. Patient was given IV fluids, he had adequate urine output Patient was weaned off vasopressor support WBC was increased to 18.4. Blood cultures with GNR bacteremia in 4 out of 4 bottles Patient was transfer out of the ICU Lambert catheter remain in place, patient had scrotal edema. Renal function continued to improve, patient was put on Bumex, urine output was monitored closely Atrial fibrillation improved, patient was discontinued from Cardizem drip and started on oral INR became normal, patient was resumed on Coumadin Stools were negative for C. difficile Patient also had cellulitis of the leg, this also improved. Dressing changes were done to lower extremity lesions. Physical therapy was consulted to assist patient with mobility Blood cultures came back positive for Escherichia coli and the bloating urine, infectious disease gave recommendations for antibiotics. They recommended midline PICC and to continue antibiotics, end date given. Patient was continued on nasal cannula, sats remained stable, DuoNeb's every 4 or order To fibrillation stabilizes, tolerated Cardizem well, beta blockers were resume renal function improved, Bumex was decreased per nephrology Lambert catheter was DC'd, patient was able to void Case management was consulted for discharge planning, patient was to return to SNF PICC line was ordered Patient was stable for discharge, cleared by all consultants Pt Condition on Discharge: Stable Discharge Disposition: Discharge to SNF Discharge Instructions DIET: Follow Instructions for: Heart Healthy Diet Activities you can perform: Weight Bearing as Hanane Follow up Referrals: Nephrology PCP Follow-up New Medications: Bumetanide (Bumex) 1 Mg Tab 1 MG PO BID fluid overload #60 Ref 0 TAB Ceftriaxone Inj (Ceftriaxone Inj) 1 Gm Inj 2 GM IV DAILY Infection #6 Ref 0 BAG Epinephrine Inj (Epinephrine Inj) 1 Mg/Ml Inj 0.3 MG IV PUSH ONCE PRN ALLERGIC REACTION #1 VIAL Epinephrine Inj (Epinephrine Inj) 1 Mg/Ml Inj 0.3 MG SQ ONCE Give with any signs of respiratory distress. PRN ALLERGIC REACTION #1 VIAL Hydrocortisone Inj (Solu-Cortef Inj) 250 Mg Inj 250 MG IV PUSH ONCE Give over 30-60 seconds. PRN ALLERGIC REACTION #1 Ref 0 VIAL Diltiazem (Cardizem) 30 Mg Tab 60 MG PO QID afib #120 Ref 0 TAB Tamsulosin (Flomax) 0.4 Mg Cap 0.4 MG PO DAILY urinary retention #30 Ref 0 CAP Continued Medications: Atorvastatin (Atorvastatin) 10 Mg Tab 10 MG PO HS Cholesterol Management #30 Ref 0 TAB Ipratropium-Albuterol Neb (Duoneb) 0.5-2.5 Mg/3 Ml Neb 1 AMPULE INH Q4HR NEB PRN WHEEZING #30 ML Lactobacillus Acidophilus (Probiotic) 1 Cap Cap 1 CAP PO TIDAC Nutritional Supplement #90 Ref 0 CAP Metoprolol Tartrate (Lopressor) 50 Mg Tab 25 MG PO DAILY FIB #30 Ref 0 TAB Multiple Vitamins W/ Minerals (Multivitamin Men) 1 Tab Tab 1 TAB PO DAILY Nutritional Supplement Ref 0 TAB Omeprazole (Omeprazole) 20 Mg Tab 20 MG PO DAILY #30 Ref 0 TAB Potassium Chloride ER (Potassium Chloride ER) 10 Meq Tab 10 MEQ PO DAILY Electrolyte Replacement #30 Ref 0 TAB Tamsulosin (Tamsulosin) 0.4 Mg Cap 0.4 MG PO HS Manage Prostate Problems #30 Ref 0 CAP Warfarin (Coumadin) 3 Mg Tab 3 MG PO DAILY@16 AFIB #30 TAB Discontinued Medications: Vancomycin Inj (Vancomycin Inj) 500 Mg Inj 250 MG PO QID Diarrhea #56 Ref 0 INJECTION [facility] Oct 21, 2016 14:53
[2016-10-21] MEDS ORDERED: WARFARIN SOD 3 MG TAB PO SCH (16:00)
[2016-12-18] MEDS ORDERED: VANC250C2 PO (17:12)
[2016-12-18] MEDS ORDERED: METR500T10 PO (17:12)
[2016-12-18] MEDS ORDERED: QUES4POW2 PO (17:12)
[2016-12-18] MEDS ORDERED: TRAZ50TA12 PO (17:12)
[2016-12-18] MEDS ORDERED: ACET325T PO (17:12)
[2016-12-18] MEDS ORDERED: DIGO0.12 PO (17:12)
[2016-12-18] MEDS ORDERED: REME30TA PO (17:12)
== END 2016-10-21 15:32 | DRG 871 ==
LOC: NEPC 21:30 → NEDA 23:52 → NEDH 10-14 06:45 → HIMN 10-14 15:28 → N04A 10-16 20:57
PROVIDERS: ADMIT Specialist; ATTEND Specialist
PROC: 30253K1 (ICD-10-PCS; 2016-10-13)
PROC: 30253N1 (ICD-10-PCS; 2016-10-13)
PROC: 05HM33Z Insertion of Infusion Device into Right Internal Jugular Vein, Percutaneous Approach (ICD-10-PCS; principal; 2016-10-14)
PROC: B543ZZA Ultrasonography of Right Jugular Veins, Guidance (ICD-10-PCS; 2016-10-14)
DX: A41.9 Sepsis, unspecified organism (principal); E43 Unspecified severe protein-calorie malnutrition; R65.21 Severe sepsis with septic shock; G93.41 Metabolic encephalopathy; N17.9 Acute kidney failure, unspecified; A04.7 Enterocolitis due to Clostridium difficile; I13.0 Hypertensive heart and chronic kidney disease with heart failure and stage 1 through stage 4 chronic kidney disease, or unspecified chronic kidney disease; E87.2 Acidosis; J18.9 Pneumonia, unspecified organism; I50.9 Heart failure, unspecified; N39.0 Urinary tract infection, site not specified; L03.115 Cellulitis of right lower limb; L03.116 Cellulitis of left lower limb; I48.91 Unspecified atrial fibrillation; E86.0 Dehydration; D63.1 Anemia in chronic kidney disease; R00.0 Tachycardia, unspecified; B96.20 Unspecified Escherichia coli [E. coli] as the cause of diseases classified elsewhere; E78.5 Hyperlipidemia, unspecified; E87.6 Hypokalemia; H91.90 Unspecified hearing loss, unspecified ear; N18.9 Chronic kidney disease, unspecified; I25.10 Atherosclerotic heart disease of native coronary artery without angina pectoris; J45.909 Unspecified asthma, uncomplicated; K21.9 Gastro-esophageal reflux disease without esophagitis; L13.9 Bullous disorder, unspecified; N13.9 Obstructive and reflux uropathy, unspecified; N50.89 Other specified disorders of the male genital organs; T45.515A Adverse effect of anticoagulants, initial encounter; Z79.01 Long term (current) use of anticoagulants; Z87.891 Personal history of nicotine dependence; Z95.5 Presence of coronary angioplasty implant and graft
CPT/HCPCS: 36430; 36600; 71010; 74176; 80048; 80053; 80069; 80162; 81001; 82272; 82550; 82805; 82948; 83540; 83550; 83605; 83735; 83880; 84155; 84484; 85007; 85014; 85018; 85025; 85027; 85610; 85730; 86850; 86900; 86901; 86920; 86927; 87040; 87077; 87086; 87186; 87205; 87493; 87641; 93005; 93306; 94150; 94640; 94664; 96361; 96374; 96376; J0610; J0692; J0696; J1160; J1265; J1815; J2270; J2543; J2997; J3370; J3475; J7030; J7040; J7050; P9016; P9017; P9047

== ENCOUNTER 2017-01-02 11:00 | Day surgery (SDC) | payer MEDICARE, OTHER ==
[2017-01-02] VITALS (7 sets, daily range): BP systolic 107–127; BP diastolic 63–75; PULSE 72–90; RESP 18–20; TEMP 97.8–97.9; O2SAT 93–100
[~2017-01-02 11:00] MED LIST changes: +ACET325T PO; +BUME1TAB26 PO; +CEFT1INJ5 IV; +DIGO0.12 PO; +DILT31TA PO; +EPIN1INJ21 IV PUSH; +EPIN1INJ21 SQ; +METR500T10 PO; +POTA10TA2 PO; +QUES4POW2 PO; +REME30TA PO; +SOLU250I IV PUSH; +TAMS5CAP PO; +TRAZ50TA12 PO; +VANC250C2 PO; -VANC500I3 PO
[2017-01-02 12:00] LABS: AUTOMATED NEUTROPHIL # 5.7 TH/MM3 (1.8-7.7); BASOPHIL # 0.1 TH/MM3 (0-0.2); EOSINOPHIL # 0.1 TH/MM3 (0-0.4); EOSINOPHIL % 1.1 % (0.0-4.0); HEMATOCRIT 37.2 % (39.0-51.0); HEMO FLAGS DIFF FINAL; LYMPH % 13.6 % (9.0-44.0); MEAN CORPUSCULAR HEMOGLOBIN 30.3 PG (27.0-34.0); MEAN CORPUSCULAR HGB CONC 31.8 % (32.0-36.0); MONO % 8.1 % (0.0-8.0); NEUT % 76.2 % (16.0-70.0); PLATELET COUNT 204 TH/MM3 (150-450); RED BLOOD COUNT 3.91 MIL/MM3 (4.50-5.90); RED CELL DISTRIBUTION WIDTH 16.2 % (11.6-17.2); WHITE BLOOD COUNT 7.5 TH/MM3 (4.0-11.0)
[2017-01-02] MEDS ORDERED: INSULIN HUMAN REGULAR 1,000 UNITS/10 ML VIAL SQ PRN (12:00)
[2017-01-02] MEDS ORDERED: POVIDONE IODINE 5% (ANTISEPSIS KIT) 4 APPLICATIONS EACH NARE PRN (12:00)
[2017-01-02] MEDS ORDERED: LACTATED RINGER'S 1000 ML IV PRN (12:00)
[2017-01-02] MEDS ORDERED: POVIDONE IODINE 5% (ANTISEPSIS KIT) 4 APPLICATIONS EACH NARE SCH (12:00)
[2017-01-02] MEDS ORDERED: CHLORHEXIDINE GLUCONATE 2 % 1 PACK (2 CLOTHS) TOPICAL SCH (12:00)
[2017-01-02] MEDS ORDERED: SODIUM CHLORID 0.9% 500 ML IV PRN (12:00)
[2017-01-02] MEDS ORDERED: CHLORHEXIDINE GLUCONATE 2 % 1 PACK (2 CLOTHS) TOPICAL PRN (12:00)
[2017-01-02] MEDS: NS 1000 ML IV SCH (12:00)
[2017-01-02] MEDS ORDERED: METOPROLOL TARTRATE 25 MG TAB PO PRN (12:00)
[2017-01-02] MEDS ORDERED: MUPIROCIN 2% OINT 1 APPLIC/GM SYR NASAL SCH (12:00)
[2017-01-02 12:14] LABS: APTT (PATIENT) 29.9 SEC (24.3-30.1); INTERNATIONAL NORMALIZED RATIO 1.1 RATIO; PROTHROMBIN TIME - PATIENT 12.5 SEC (9.8-11.6)
[2017-01-02 12:26] LABS: BICARBONATE 15.9 MEQ/L (21.0-32.0); POTASSIUM 5.5 MEQ/L (3.5-5.1)
[2017-01-02] MEDS ORDERED: VANCOMYCIN 500 MG VIAL ONE (14:44)
[2017-01-02] MEDS ORDERED: LIDOCAINE HCL 2% 50 ML VIAL ONE (14:44)
[2017-01-02] MEDS ORDERED: PROPOFOL 200 MG/20 ML AMP IV ONE (17:00)
[2017-01-02] MEDS ORDERED: SODIUM CHLORID 0.9% 500 ML INJ 500 ML IV ONE (17:00)
--- NOTE | 2017-01-02 20:23 | EKG ---
Date Performed: 01/02/2017 Time Performed: 12:08:10 PTAGE: 76 years EKG: Atrial fibrillation Right axis deviation Right bundle branch block Inferior ST-T changes ar e nonspecific Compared to previous tracing, ventricular rate is slower Abnormal ECG PREVIOUS TRACING : 10/14/2016 05.17 DOCTOR: Douglas Beltre Interpretating Date/Time 01/02/2017 20:22:18
[2017-01-02] MEDS ORDERED: ACETAMINOPHEN 325 MG TAB PO PRN (20:45)
[2017-01-02] MEDS ORDERED: RESP: ALBUTEROL 2.5 MG/IPRATROPIUM 0.5 MG NEB (PRN) NEB (20:45)
[2017-01-02] MEDS ORDERED: ACETAMINOPHEN/CODEINE 300 MG/30 MG TAB PO PRN (20:45)
[2017-01-02] MEDS ORDERED: ONDANSETRON HCL 4 MG/2 ML VIAL IV PRN (20:45)
[2017-01-02] MEDS ORDERED: traZODone HCL 50 MG TAB PO SCH (21:00)
[2017-01-02] MEDS ORDERED: ATORVASTATIN 10 MG TAB PO SCH (21:00)
[2017-01-02] MEDS ORDERED: MIRTAZAPINE ODT 30 MG TAB PO SCH (21:00)
[2017-01-02] MEDS ORDERED: DILTIAZEM HCL 60 MG TAB PO SCH (21:00)
[2017-01-02] MEDS ORDERED: TAMSULOSIN HCL 0.4 MG CAP PO SCH (21:00)
--- NOTE | 2017-01-02 21:04 | RADRPT ---
EXAM DATE/TIME: 01/02/2017 20:33 [place] COMPARISON: No previous studies available for comparison. INDICATIONS : Evaluate for pneumothorax. MEDICAL HISTORY : Hypertension. Congestive heart failure. Gastroesophageal reflux disease. AFib SURGICAL HISTORY : Coronary artery stent. Pacemaker. ENCOUNTER: Initial ACUITY: 1 day PAIN SCORE: 0/10 LOCATION: Bilateral chest. FINDINGS: A single view of the chest demonstrates the lungs to be symmetrically aerated without evidence of mas s, infiltrate or effusion. The cardiomediastinal contours are unremarkable. Left-sided pacemaker wit h single intact lead. No pneumothorax. Osseous structures are intact. CONCLUSION: No acute disease. No pneumothorax. Barry Haley MD on January 02, 2017 at 21:01 Board Certified Radiologist. This report was verified electronically.
[2017-01-02] MEDS: DILTIAZEM HCL 30 MG TAB PO SCH (21:13)
[2017-01-02] MEDS ORDERED: ceFAZolin 2 GM PREMIX 50 ML IV SCH (22:00)
[2017-01-03] VITALS (22 sets, daily range): BP systolic 87–162; BP diastolic 51–79; PULSE 89–91; RESP 18–20; TEMP 97.6–98.7; O2SAT 95–100
[2017-01-03] MEDS: ceFAZolin 1,000 MG/NS 100 ML IV SCH ×4 (02:28→13:14)
[2017-01-03] MEDS ORDERED: VANCOMYCIN INJ 1,000 MG in SODIUM CHLOR 0.9% 250 ML INJ 250 ML IV ONE (03:00)
[2017-01-03] MEDS ORDERED: NON-FORMULARY DRUG (Omeprazole 20 MG) PO SCH (09:00)
[2017-01-03] MEDS ORDERED: MULTIVITAMINS/MINERALS THERAPEUTIC TAB PO SCH (09:00)
[2017-01-03] MEDS ORDERED: PANTOPRAZOLE SOD 20 MG DELAYED RELEASE TAB PO SCH (09:00)
[2017-01-03] MEDS: DILTIAZEM HCL 30 MG TAB PO SCH ×3 (09:46→17:55)
--- NOTE | 2017-01-03 10:19 | PD.CARD.PN ---
Subjective Subjective Remarks Patient is doing well. BP 123/69. He is pacing and rep checked device. He has indwelling burgos Objective Medications Current Medications Medications (Trade) Dose Ordered Sig/Guzman Route Start Time Stop Time Status Last Admin Sodium Chloride 1,000 ml @ 30 mls/hr Q24H IV 01/02/17 12:00 Lactated Ringer's 1,000 ml @ 30 mls/hr Q24H PRN IV 01/02/17 12:00 01/05/17 11:59 (NS 500 ml Inj) 500 ml @ 30 mls/hr [id number] PRN IV 01/02/17 12:00 01/05/17 11:59 (Zofran Inj) 4 mg Q4H PRN IV 01/02/17 20:45 (Tylenol-Codeine #3) 2 tab Q4H PRN PO 01/02/17 20:45 (Tylenol) 650 mg Q4H PRN PO 01/02/17 20:45 (Lipitor) 10 mg HS PO 01/02/17 21:00 01/02/17 21:11 (Remeron Soltab Odt) 30 mg HS PO 01/02/17 21:00 01/02/17 22:37 (Theragran M Tab) 1 tab DAILY PO 01/03/17 09:00 01/03/17 09:46 (Flomax) 0.4 mg HS PO 01/02/17 21:00 01/02/17 21:11 (Desyrel) 50 mg HS PO 01/02/17 21:00 01/02/17 21:12 (Coumadin) 3 mg DAILY@16 PO 01/03/17 16:00 (Cardizem) 30 mg QID PO 01/02/17 21:00 01/03/17 09:46 Pantoprazole Sodium 20 mg 20 mg DAILY PO 01/03/17 09:00 01/03/17 09:46 (Ancef Inj/NS Inj) 100 ml @ 200 mls/hr Q12H IV 01/03/17 02:00 01/03/17 14:29 01/03/17 02:28 Vital Signs / I&O Vital Signs Date Time Temp Pulse Resp B/P Pulse Ox O2 Delivery O2 Flow Rate FiO2 01/03/17 09:00 90 01/03/17 08:00 90 01/03/17 07:39 97.6 90 18 87/51 01/03/17 07:00 90 01/03/17 06:02 95 01/03/17 06:00 90 01/03/17 05:00 90 01/03/17 04:23 98.0 90 20 129/72 100 01/03/17 04:00 90 01/03/17 03:00 90 01/03/17 02:00 90 01/03/17 01:00 90 01/03/17 00:00 90 01/03/17 00:00 97.7 91 18 133/79 100 01/02/17 23:00 90 01/02/17 22:00 72 01/02/17 22:00 72 20 111/63 95 01/02/17 21:00 74 01/02/17 21:00 74 20 127/71 95 01/02/17 20:00 72 01/02/17 20:00 72 20 121/65 94 01/02/17 19:00 90 01/02/17 19:00 97.9 76 20 116/73 93 01/02/17 17:26 97.9 90 20 122/75 100 01/02/17 12:11 97.8 89 18 107/69 99 I/O 01/02/17 01/02/17 01/02/17 01/03/17 01/03/17 01/03/17 07:00 15:00 23:00 07:00 15:00 23:00 Intake Total 590 ml Output Total 325 ml Balance 265 ml Intake Oral 240 ml IV Total 350 ml Output Urine Total 300 ml Emesis 25 ml # Bowel Movements 0 Physical Exam GENERAL: SKIN: Warm and dry. HEAD: Normocephalic. EYES: No scleral icterus. No injection or drainage. NECK: Supple, trachea midline. No JVD or lymphadenopathy. CARDIOVASCULAR: Regular rate and rhythm without murmurs, gallops, or rubs. Pacemaker site look fine RESPIRATORY: Breath sounds equal bilaterally. No accessory muscle use. GASTROINTESTINAL: Abdomen soft, non-tender, nondistended. MUSCULOSKELETAL: No cyanosis, or edema. Laboratory Laboratory Tests Test 01/02/17 11:40 White Blood Count 7.5 TH/MM3 Red Blood Count 3.91 MIL/MM3 Hemoglobin 11.8 GM/DL Hematocrit 37.2 % Mean Corpuscular Volume 95.0 FL Mean Corpuscular Hemoglobin 30.3 PG Mean Corpuscular Hemoglobin 31.8 % Concent Red Cell Distribution Width 16.2 % Platelet Count 204 TH/MM3 Mean Platelet Volume 9.2 FL Neutrophils (%) (Auto) 76.2 % Lymphocytes (%) (Auto) 13.6 % Monocytes (%) (Auto) 8.1 % Eosinophils (%) (Auto) 1.1 % Basophils (%) (Auto) 1.0 % Neutrophils # (Auto) 5.7 TH/MM3 Lymphocytes # (Auto) 1.0 TH/MM3 Monocytes # (Auto) 0.6 TH/MM3 Eosinophils # (Auto) 0.1 TH/MM3 Basophils # (Auto) 0.1 TH/MM3 CBC Comment DIFF FINAL Differential Comment Prothrombin Time 12.5 SEC Prothromb Time International 1.1 RATIO Ratio Activated Partial 29.9 SEC Thromboplast Time Sodium Level 139 MEQ/L Potassium Level 5.5 MEQ/L Chloride Level 115 MEQ/L Carbon Dioxide Level 15.9 MEQ/L Anion Gap 8 MEQ/L Blood Urea Nitrogen 36 MG/DL Creatinine 2.54 MG/DL Estimat Glomerular Filtration 25 ML/MIN Rate Random Glucose 87 MG/DL Calcium Level 8.9 MG/DL Assessment and Plan Assessment and Plan Discharge. Follow with Daron Lerma MD Jan 03, 2017 10:19
[2017-01-03] MEDS: NS 1000 ML IV SCH (12:00)
[2017-01-03] MEDS ORDERED: WARFARIN SOD 3 MG TAB PO SCH (16:00)
--- NOTE | 2017-01-05 12:42 | MR ---
cc: PHUC GLASER DATE: 01/02/2017 PROCEDURE PERFORMED 1. Electrophysiology study with right ventricular and right atrial pacing and sensing. 2. AV daysi ablation. ACCESS SITE Right femoral artery and right femoral vein. EQUIPMENT USED Quadripolar catheter and 10 mm Blazer II ablation catheter. MEDICATION Sedation administered by Anesthesia. COMPLICATIONS None. ESTIMATED BLOOD LOSS Less than 10 cc. PROCEDURE After the patient was sedated by Anesthesia, the right femoral artery and right femoral vein were accessed. A quadripolar catheter and a Blaze II ablation catheter were placed into the right ventricle and right atrium. Electrophysiology study was performed. There was evidence of atrial fibrillation. Right ventricular pacing was performed. No arrhythmias were induced. RESULTS 1. QRS 135, QT 465. 2. RR variable. 3. Right ventricular pacing: No arrhythmias induced. Patient remained in atrial fibrillation throughout the procedure. 4. Post ablation study revealed complete heart block with ventricular escape in the 20s. DIAGNOSIS 1. Atrial fibrillation with rapid ventricular response. 2. No inducible ventricular arrhythmias. 3. Successful AV daysi ablation. DISPOSITION Mr. Nazario will undergo placement of single-chamber pacemaker. MD KARINA Gtz/SAMAN /3:32 PM /12:29 PM NEHEMIAH
--- NOTE | 2017-01-05 12:56 | MP ---
cc: STEPHANIE BLANC DATE OF SURGERY: 01/02/2017 INDICATION Complete heart block, status post AV-daysi ablation, chronic atrial fibrillation. PROCEDURE PERFORMED Placement of [employer] single-chamber pacemaker. ACCESS SITE Left subclavian vein using ultrasound guidance. MEDICATION Sedation administered by anesthesia. EQUIPMENT USED Generator: [employer], model [id number] single chamber pacemaker, serial number [id number]. Right ventricular lead: [employer] 168DC-58 cm screw-in atrial lead, serial number [id number]. LEAD TESTING Right ventricular lead: R-wave, the patient is pacemaker dependent, lead impedance 760 ohms. Pacing threshold 1.4 volts at 0.5 milliseconds. Pacing at 10 V, no diaphragmatic stimulation. PARAMETERS Mode: VVI at 90 beats per minute. DIAGNOSIS Successful placement of [employer] single-chamber pacemaker. DISPOSITION Mr. Nazario will be observed on telemetry after his procedure. He will be discharged home tomorrow if stable. I will see him back for a wound check and chronic device reprogramming in our office after discharge. Stephanie Blanc MD OQ/TLL /4:29 PM /12:34 PM [email or web address]
== END 2017-01-03 19:15 ==
LOC: HDOC 11:00 → HDIC 11:01 → HCIS 17:11 → HDOC 01-03 19:15
PROVIDERS: ATTEND Internal Medicine Interventional Cardiology
DX: I44.2 Atrioventricular block, complete (principal); I48.2 Chronic atrial fibrillation; I11.0 Hypertensive heart disease with heart failure; I50.20 Unspecified systolic (congestive) heart failure; I25.10 Atherosclerotic heart disease of native coronary artery without angina pectoris; I49.3 Ventricular premature depolarization; E78.5 Hyperlipidemia, unspecified; J45.909 Unspecified asthma, uncomplicated; R42 Dizziness and giddiness
CPT/HCPCS: 00530; 33207; 71010; 80048; 85025; 85610; 85730; 93005; 93620; 93650; C1730; C1732; C1786; C1898; C2630; J0690; J3010; J3370; J7040; J7050

== ENCOUNTER → 2018-02-19 | Outpatient (CLI) | payer MEDICARE, OTHER ==
[~2018-02-19] MED LIST changes: -BUME1TAB26 PO; -CEFT1INJ5 IV; -DIGO0.12 PO; -METO-309 PO; -METR500T10 PO; -OMEP20TA PO; +OMEP20TA93 PO; -POTA10TA2 PO; -QUES4POW2 PO; -SOLU250I IV PUSH; -TAMS5CAP PO; -VANC250C2 PO
--- NOTE | 2018-02-19 14:51 | RADRPT ---
EXAM DATE: 02/19/2018 2:26 PM EDT AGE/SEX: 77 years / Male INDICATIONS: Evaluate for effusion. CLINICAL DATA: This is the patient's initial encounter. Patient reports that signs and symptoms have been present for 1 day and indicates a pain score of 0/10. MEDICAL/SURGICAL HISTORY: Cardiovascular disease. Hypertension. Gastroesophageal reflux disease. Renal failure. None. RADIATION DOSE: 8.74 CTDI (mGy) COMPARISON: No prior exams available for comparison. TECHNIQUE: Multiple contiguous axial images were obtained through the chest without contrast. Image s were obtained in suspended respiration using multiple row detector helical technique. Using automa kassandra exposure control and adjustment of the mA and/or kV according to patient size, radiation dose was kept as low as reasonably achievable to obtain optimal diagnostic quality images. FINDINGS: There is a small right pleural effusion with mild right base atelectasis and/or infiltrate . Chronic vascular calcifications are seen involving the aorta. Cardiomegaly seen. No appreciable pathological adenopathy is seen within the mediastinum. The transverse processes of L1 is not fused bilaterally co uld be due to old trauma or on a congenital basis. Coronary artery calcifications are seen typically seen with coronary artery disease and clinical correlation and evaluation is suggested. CONCLUSION: Small right pleural effusion and right lung base atelectasis and/or infiltrate. Electronically signed by: Sandy Castro MD 02/19/2018 2:49 PM EDT
== END ==
LOC: HRAD 13:23
PROVIDERS: ATTEND Internal Medicine Sleep Medicine
DX: J90 Pleural effusion, not elsewhere classified (principal)
CPT/HCPCS: 71250